=== PATIENT | female | born 1995 | race Caucasian/White ===

== ENCOUNTER 2017-06-14 05:11 | Emergency (ER) | payer OTHER ==
[~2017-06-14] VITALS: Ht 175.3 cm; Wt 95.3 kg
--- OUTSIDE RECORDS SUMMARY | 2017-06-14 05:20 | XMS REPORT | Clinical Summary ---
Author Author Admin, MAGNOE Organization [facility] Address Unknown Phone Unavailable Allergies, Adverse Reactions, Alerts Allergy Name Reaction Description Start Date Severity Status Provider No Known Allergies Anamaria Anderson LPN NKDA Critical Active Anamaria Anderson LPN Conditions or Problems Problem Name Problem Code Onset Date Status Entry Date Provider Comment Standard Description Annotate FH BREAST CANCER V16.3 Active Anamaria Anderson LPN Family history of malignant neoplasm of breast PHARYNGITIS, ACUTE, SEVERE 462 Resolved Christ PEDERSEN Acute pharyngitis UPPER RESPIRATORY INFECTION, ACUTE 465.9 Resolved Christ PEDERSEN Acute upper respiratory infections of unspecified site PHARYNGITIS 462 Resolved Christ PEDERSEN Acute pharyngitis CONJUNCTIVITIS 372.30 Resolved Christ PEDERSEN Conjunctivitis, unspecified Viral syndrome 079.99 Resolved Christ PEDERSEN Unspecified viral infection in conditions classified elsewhere and of unspecified site Hematuria 599.70 Resolved Christ PEDERSEN Hematuria, unspecified UTI 599.0 Resolved Christ PEDERSEN Urinary tract infection, site not specified Fever of unknown origin 780.60 Active Christ PEDERSEN Fever, unspecified Acute pharyngitis 462 Active Christ PEDERSEN Acute pharyngitis Upper respiratory infection 465.9 Active Sanket PEDERSEN Acute upper respiratory infections of unspecified site Allergic reaction 995.3 Active Christ PEDERSEN Allergy, unspecified, not elsewhere classified Dysuria 788.1 Active Christ PEDERSEN Dysuria Family history of renal disease V18.69 Active Christ PEDERSEN Family history of other kidney diseases Renal calculus, hx of V13.01 Active Christ PEDERSEN Personal history of urinary calculi Microscopic hematuria 599.72 Active Christ PEDERSEN Microscopic hematuria Hematuria 599.70 Active Charla Hammond MD Hematuria, unspecified Muscle spasm 728.85 Active Christ PEDERSEN Spasm of muscle Easy bruising 782.9 Active Christ PEDERSEN Other symptoms involving skin and integumentary tissues PHARYNGITIS, ACUTE, SEVERE ICD-462 Inactive Christ PEDERSEN UPPER RESPIRATORY INFECTION, ACUTE ICD-465.9 Inactive Christ PEDERSEN PHARYNGITIS ICD-462 Inactive Christ PEDERSEN CONJUNCTIVITIS ICD-372.30 Inactive Christ PEDERSEN Viral syndrome ICD-079.99 Inactive Christ PEDERSEN Hematuria ICD-599.70 Inactive Christ PEDERSEN 09/15 UTI ICD-599.0 Inactive Christ PEDERSEN Medication List Medication Instructions Start Date Stop Date Generic Name NDC Status Provider Patient Instruction CEPHALEXIN 500 MG CAPS 1 tablet by mouth four times daily CEPHALEXIN 67614637008 No Longer Active Christ Kye PEDERSEN Active CLARITIN 10 MG TAB 1 tablet by mouth daily as needed for allergies LORATADINE 82003913128 No Longer Active Christ Kye PEDERSEN Active HYDROCORTISONE 1 % CREA apply 3 to 4 times per day HYDROCORTISONE 35746796224 No Longer Active Christ Kye PEDERSEN Active AZITHROMYCIN 500 MG TABS 1 tablet PO daily x 6 days AZITHROMYCIN 60697857109 No Longer Active Christ Harms PA Active ZITHROMAX 250 MG TAB 2 po today, then 1 po q days 2-5 AZITHROMYCIN 29028991475 No Longer Active Christ Harms PA Active AMOXICILLIN 500 MG CAP 1 tab by mouth 3 times daily x 10 days AMOXICILLIN 19921166979 No Longer Active Christ Harms PA Active GENTAMICIN SULFATE 0.3 % SOLN 3 gtt OU tid x 7 d GENTAMICIN SULFATE 31443008218 No Longer Active Sanket PEDERSEN Active AMOXICILLIN 500 MG TABS 2 PO bid x 7 d AMOXICILLIN 23846275327 No Longer Active Sanket PEDERSEN Active CLARITIN 10 MG CAPS 1qd LORATADINE 76203414175 No Longer Active Sanket PEDERSEN Active ZITHROMAX 250 MG TAB 2 po today, then 1 po q days 2-5 AZITHROMYCIN 91313807785 No Longer Active Christ Harms PA Active AMOXICILLIN 500 MG CAP 1 tab by mouth 3 times daily x 10 days AMOXICILLIN 51286054699 No Longer Active Christ Harms PA Active AMOXICILLIN 500 MG CAP 1 tab by mouth 3 times daily x 10 days AMOXICILLIN 500 MG CAP 241838 AMOXICILLIN Inactive CLARITIN 10 MG CAPS 1qd CLARITIN 10 MG CAPS LORATADINE Inactive AMOXICILLIN 500 MG CAP 1 tab by mouth 3 times daily x 10 days AMOXICILLIN 500 MG CAP 159436 AMOXICILLIN Inactive AZITHROMYCIN 500 MG TABS 1 tablet PO daily x 6 days AZITHROMYCIN 500 MG TABS 8563530 AZITHROMYCIN Inactive HYDROCORTISONE 1 % CREA apply 3 to 4 times per day HYDROCORTISONE 1 % CREA 315153 HYDROCORTISONE Inactive CLARITIN 10 MG TAB 1 tablet by mouth daily as needed for allergies CLARITIN 10 MG TAB 272576 LORATADINE Inactive CEPHALEXIN 500 MG CAPS 1 tablet by mouth four times daily CEPHALEXIN 500 MG CAPS 258010 CEPHALEXIN Inactive ZITHROMAX 250 MG TAB 2 po today, then 1 po q days 2-5 ZITHROMAX 250 MG TAB 8936788 AZITHROMYCIN Inactive AMOXICILLIN 500 MG TABS 2 PO bid x 7 d AMOXICILLIN 500 MG TABS 220846 AMOXICILLIN Inactive GENTAMICIN SULFATE 0.3 % SOLN 3 gtt OU tid x 7 d GENTAMICIN SULFATE 0.3 % SOLN 148390 GENTAMICIN SULFATE Inactive ZITHROMAX 250 MG TAB 2 po today, then 1 po q days 2-5 ZITHROMAX 250 MG TAB 0790626 AZITHROMYCIN Inactive Vital Signs Date Name Value Unit Range Description blood pressure, diastolic - 8462-4 69 mm[Hg] BP buchanan blood pressure, systolic - 8480-6 98 mm[Hg] BP sys pulse rate E&M - 8867-4 72 /min Heart rate temperature E&M 97.3 [degF] Body temperature weight E&M - 3141-9 171 [lb_av] Weight Measured blood pressure, diastolic - 8462-4 60 mm[Hg] BP buchanan blood pressure, systolic - 8480-6 100 mm[Hg] BP sys height E&M - 8302-2 67.5 [in_us] Bdy height pulse rate E&M - 8867-4 72 /min Heart rate temperature E&M 98.1 [degF] Body temperature weight E&M - 3141-9 168 [lb_av] Weight Measured blood pressure, diastolic - 8462-4 64 mm[Hg] BP buchanan blood pressure, systolic - 8480-6 105 mm[Hg] BP sys pulse rate E&M - 8867-4 71 /min Heart rate temperature E&M 96.6 [degF] Body temperature weight E&M - 3141-9 171 [lb_av] Weight Measured blood pressure, diastolic - 8462-4 60 mm[Hg] BP buchanan blood pressure, systolic - 8480-6 98 mm[Hg] BP sys height E&M - 8302-2 67 [in_us] Bdy height pulse rate E&M - 8867-4 88 /min Heart rate temperature E&M 98.2 [degF] Body temperature weight E&M - 3141-9 172 [lb_av] Weight Measured blood pressure, diastolic - 8462-4 74 mm[Hg] BP buchanan blood pressure, systolic - 8480-6 100 mm[Hg] BP sys height E&M - 8302-2 67.25 [in_us] Bdy height pulse rate E&M - 8867-4 64 /min Heart rate temperature E&M 98 [degF] Body temperature weight E&M - 3141-9 171 [lb_av] Weight Measured blood pressure, diastolic - 8462-4 64 mm[Hg] BP buchanan blood pressure, systolic - 8480-6 104 mm[Hg] BP sys height E&M - 8302-2 67.5 [in_us] Bdy height pulse rate E&M - 8867-4 76 /min Heart rate temperature E&M 99.9 [degF] Body temperature weight E&M - 3141-9 171 [lb_av] Weight Measured Diagnostic Results Date Name Value Unit Range Description Lab Report: CBC W/DIFF - Hematology leukocyte count, blood 6.7 10^3/MM^3 10*3/mm3 4.6-10.2 neutrophils as percent of blood leukocytes 48.0 % 42.2-75.2 monocytes as percent of blood leukocytes 8.7 % 1.7-9.3 lymphocytes as percent of blood leukocytes 40.1 % 20.5-51.1 erythrocyte (RBC) count 4.30 10^6/MM^3 10*6/mm3 4.04-5.48 hemoglobin, blood 12.9 g/dL 12.0-16.0 hematocrit, blood 38.3 % 36.0-46.0 mean corpuscular volume, RBC 89 fL 80-97 mean corpuscular hemoglobin, RBC 30.1 pg 27.0-31.2 mean corpuscular hemoglobin concentration, RBC 33.8 G/DL % 31.8- 35.4 red blood cell distribution width 13.6 % 11.6-14.8 platelet count 193 10^3/MM^3 10*3/mm3 142-424 Lab Report: CBC W/DIFF, Rapid Strep - Hematology leukocyte count, blood 10.4 10^3/MM^3 10*3/mm3 4.6-10.2 neutrophils as percent of blood leukocytes 63.9 % 42.2-75.2 monocytes as percent of blood leukocytes 6.8 % 1.7-9.3 lymphocytes as percent of blood leukocytes 24.7 % 20.5-51.1 erythrocyte (RBC) count 4.51 10^6/MM^3 10*6/mm3 4.04-5.48 hemoglobin, blood 13.8 g/dL 12.0-16.0 hematocrit, blood 40.2 % 36.0-46.0 mean corpuscular volume, RBC 89 fL 80-97 mean corpuscular hemoglobin, RBC 30.6 pg 27.0-31.2 mean corpuscular hemoglobin concentration, RBC 34.3 G/DL % 31.8- 35.4 red blood cell distribution width 13.7 % 11.6-14.8 platelet count 234 10^3/MM^3 10*3/mm3 142-424 Lab Report: CBC W/DIFF, Rapid Strep - Lab Microbial identification kit, rapid strep method Negative Negative Lab Report: UADIP W/MICRO, AUTO - Chemistry protein, total urine random Trace mg/dL Negative RBC, urine, dipstick 3+ Negative Lab Report: UADIP W/MICRO, AUTO - Urinalysis urobilinogen, urine, semiquantitative (dipstick) Normal Normal leukocyte esterase, urine, by dipstick Negative Negative nitrite, urine, semiquantitative Negative Negative glucose, urine, semiquantitative Negative Negative ketones, urine, by test strip Trace Negative bilirubin, urine 1+ Negative urine color Dark Yellow Colorless;Lightyellow;Straw;Yellow appearance, urine SL. Hazy Clear specific gravity, urine 1.030 1.000-1.030 pH, urine, semiquantitative 7.0 5.0-8.5 Office Visit: CN hematuria - Chemistry RBC, urine, dipstick negative protein, total urine random negative mg/dL Office Visit: CN hematuria - Urinalysis urinalysis, routine Clean Catch ketones, urine, by test strip negative bilirubin, urine negative glucose, urine, semiquantitative negative pH, urine, semiquantitative 6 specific gravity, urine 1.010 urine color yellow appearance, urine clear leukocyte esterase, urine, by dipstick negative nitrite, urine, semiquantitative negative urobilinogen, urine, semiquantitative (dipstick) 0.2 protein, urine, semiquantitative (dipstick) negative Encounters Code Encounter Date Provider Facility CPT-76979 Level 3 Est. Patient 07:02:29 CDT Christ PEDERSEN [facility] CPT-70022 Level 4 Est. Patient 07:58:02 CDT Christ PEDERSEN [facility] CPT-50729 Level 3 New Patient 16:50:18 CDT Charla Hammond MD [facility] CPT-47264 Level 3 Est. Patient 07:06:47 CDT Christ PEDERSEN [facility] CPT-06009 Level 3 Est. Patient 13:03:14 CDT Christ Fishman [facility] [place] CPT-93296 Level 3 Est. Patient 09:44:05 CDT Sanket Angel [facility] CPT-43546 Level 3 New Patient 14:13:26 CDT Christ Fishman [facility] CPT-77329 Level 3 New Patient 08:42:00 CDT Christ PEDERSEN [facility] [place] CPT-06709 Level 3 Est. Patient 06:15:09 CASH CONTROL SPECIALIST Christ Fishman [facility] CPT-51498 Level 3 Est. Patient 14:32:02 CDT Christ PEDERSEN [facility] CPT-96856 Level 3 Est. Patient 13:55:47 CDT Sanket Angel [facility] CPT-68826 Level 3 Est. Patient 07:36:37 CASH CONTROL SPECIALIST Christ Fishman [facility] CPT-41028 Level 3 Est. Patient 10:35:07 CDT Christ Fishman [facility] Procedures Code Procedure Name Date Entry Date Standard Description CPT-34948 Venipuncture Draw Fee 08:59:46 CDT CPT-80485 Venipuncture Draw Fee 16:02:00 CDT CPT-55033 Urine Dip (Floor Use Only) 16:50:18 CDT CPT-77942 Abd single AP View 09:49:22 CDT CPT-98344 Venipuncture Draw Fee 14:15:28 CDT CPT-42867 Rapid Strep -(Floor Use Only) 10:04:18 CDT CPT-72845 Venipuncture Draw Fee 10:04:18 CDT CPT-36752 Venipuncture Draw Fee 09:53:28 CASH CONTROL SPECIALIST CPT-10404 Rapid Strep -(Floor Use Only) 14:32:02 CDT CPT-21611 Influenza (Floor Use Only) 15:34:29 CASH CONTROL SPECIALIST CPT-21653 Rapid Strep -(Floor Use Only) 10:48:21 CDT CPT-85658 Venipuncture Draw Fee 10:48:21 CDT
--- OUTSIDE RECORDS SUMMARY | 2017-06-14 05:20 | XMS REPORT | Clinical Summary ---
Author Author Admin, E Organization [facility] Address Unknown Phone Unavailable Allergies, Adverse Reactions, Alerts Allergy Name Reaction Description Start Date Severity Status Provider No Known Allergies Anamaria Anderson LPN NKDA Critical Active Anamaria Andref [employer] ATTENDANT Conditions or Problems Problem Name Problem Code Onset Date Status Entry Date Provider Comment Standard Description Annotate FH BREAST CANCER V16.3 Active Anamaria Anderson LPN Family history of malignant neoplasm of breast PHARYNGITIS, ACUTE, SEVERE 462 Resolved Christ PEDERSEN Acute pharyngitis UPPER RESPIRATORY INFECTION, ACUTE 465.9 Resolved Christ Fishman PA Acute upper respiratory infections of unspecified site PHARYNGITIS 462 Resolved Christ PEDERSEN Acute pharyngitis CONJUNCTIVITIS 372.30 Resolved Christ Fishman PA Conjunctivitis, unspecified Viral syndrome 079.99 Resolved Christ Fishman PA Unspecified viral infection Hematuria 599.70 Resolved Christ PEDERSEN Hematuria, unspecified UTI 599.0 Resolved Christ PEDERSEN Urinary tract infection, site not specified Fever of unknown origin 780.60 Resolved Samantha Yokum KOSHER INSPECTOR Fever, unspecified Acute pharyngitis 462 Resolved Samantha Yokum KOSHER INSPECTOR Acute pharyngitis Upper respiratory infection 465.9 Resolved Samantha Yokum KOSHER INSPECTOR Acute upper respiratory infections of unspecified site Allergic reaction 995.3 Resolved Samantha Yokum KOSHER INSPECTOR Allergy, unspecified, not elsewhere classified Dysuria 788.1 Resolved Samantha Yokum KOSHER INSPECTOR Dysuria Family history of renal disease V18.69 Active Christ PEDERSEN Family history of other kidney diseases Renal calculus, hx of V13.01 Active Christ PEDERSEN Personal history of urinary calculi Microscopic hematuria 599.72 Resolved Samantha Yokum KOSHER INSPECTOR Microscopic hematuria Hematuria 599.70 Resolved Samantha Yokum KOSHER INSPECTOR Hematuria, unspecified Muscle spasm 728.85 Resolved Samantha Yokum KOSHER INSPECTOR Spasm of muscle Easy bruising 782.9 Resolved Samantha Yokum KOSHER INSPECTOR Other symptoms involving skin and integumentary tissues Athletic physical, normal V70.3 Active Samantha Yokum KOSHER INSPECTOR Other general medical examination for administrative purposes Back spasm 724.8 Active Christ PEDERSEN Other symptoms referable to back Easy bruising 782.9 Active Christ PEDERSEN Other symptoms involving skin and integumentary tissues Otitis externa, acute, right 380.12 Active Jenae Arce KOSHER INSPECTOR Acute swimmers' ear PHARYNGITIS, ACUTE, SEVERE ICD-462 Inactive Christ PEDERSEN UPPER RESPIRATORY INFECTION, ACUTE ICD-465.9 Inactive Christ PEDERSEN PHARYNGITIS ICD-462 Inactive Christ PEDERSEN CONJUNCTIVITIS ICD-372.30 Inactive Christ Fishman PA Viral syndrome ICD-079.99 Inactive Christ Fishman PA Hematuria ICD-599.70 Inactive Christ Fishman PA 09/15 UTI ICD-599.0 Inactive Christ Harms PA Fever of unknown origin ICD-780.60 Inactive Samantha Yokum KOSHER INSPECTOR Acute pharyngitis ICD-462 Inactive Samantha Yokum KOSHER INSPECTOR Upper respiratory infection ICD-465.9 Inactive Samantha Yokum KOSHER INSPECTOR Allergic reaction ICD-995.3 Inactive Samantha Yokum KOSHER INSPECTOR Dysuria ICD-788.1 Inactive Samantha Yokum KOSHER INSPECTOR 02/08 Microscopic hematuria ICD-599.72 Inactive Samantha Yokum KOSHER INSPECTOR Hematuria ICD-599.70 Inactive Samantha Yokum KOSHER INSPECTOR Muscle spasm ICD-728.85 Inactive Samantha Yokum KOSHER INSPECTOR Easy bruising ICD-782.9 Inactive Samantha Yokum KOSHER INSPECTOR Medication List Medication Instructions Start Date Stop Date Generic Name NDC Status Provider Patient Instruction CORTISPORIN 3.5-17430-2 SOLN 4gtts in affected ear QID x 7 days [id number] Active Jillina Frazell KOSHER INSPECTOR Active CEPHALEXIN 500 MG CAPS 1 tablet by mouth four times daily CEPHALEXIN 26823609563 No Longer Active Christ Harms PA Active CLARITIN 10 MG TAB 1 tablet by mouth daily as needed for allergies LORATADINE 61531944740 No Longer Active Christ Harms PA Active HYDROCORTISONE 1 % CREA apply 3 to 4 times per day HYDROCORTISONE 71458165362 No Longer Active Christ Harms PA Active AZITHROMYCIN 500 MG TABS 1 tablet PO daily x 6 days AZITHROMYCIN 19018230612 No Longer Active Christ Harms PA Active ZITHROMAX 250 MG TAB 2 po today, then 1 po q days 2-5 AZITHROMYCIN 76971785857 No Longer Active Christ Harms PA Active AMOXICILLIN 500 MG CAP 1 tab by mouth 3 times daily x 10 days AMOXICILLIN 50819259240 No Longer Active Christ Kye PA Active GENTAMICIN SULFATE 0.3 % SOLN 3 gtt OU tid x 7 d GENTAMICIN SULFATE 19760251348 No Longer Active Sanket PEDERSEN Active AMOXICILLIN 500 MG TABS 2 PO bid x 7 d AMOXICILLIN 07479225145 No Longer Active Sanket PEDERSEN Active CLARITIN 10 MG CAPS 1qd LORATADINE 20699366889 No Longer Active Sanket PEDERSEN Active ZITHROMAX 250 MG TAB 2 po today, then 1 po q days 2-5 AZITHROMYCIN 77666737872 No Longer Active Christ Harms PA Active AMOXICILLIN 500 MG CAP 1 tab by mouth 3 times daily x 10 days AMOXICILLIN 80851222161 No Longer Active Christ Harms PA Active AMOXICILLIN 500 MG CAP 1 tab by mouth 3 times daily x 10 days AMOXICILLIN 500 MG CAP 508622 AMOXICILLIN Inactive CLARITIN 10 MG CAPS 1qd CLARITIN 10 MG CAPS 057950 LORATADINE Inactive AMOXICILLIN 500 MG CAP 1 tab by mouth 3 times daily x 10 days AMOXICILLIN 500 MG CAP 453682 AMOXICILLIN Inactive AZITHROMYCIN 500 MG TABS 1 tablet PO daily x 6 days AZITHROMYCIN 500 MG TABS 7724153 AZITHROMYCIN Inactive HYDROCORTISONE 1 % CREA apply 3 to 4 times per day HYDROCORTISONE 1 % CREA 432417 HYDROCORTISONE Inactive CLARITIN 10 MG TAB 1 tablet by mouth daily as needed for allergies CLARITIN 10 MG TAB 800958 LORATADINE Inactive CEPHALEXIN 500 MG CAPS 1 tablet by mouth four times daily CEPHALEXIN 500 MG CAPS 387281 CEPHALEXIN Inactive ZITHROMAX 250 MG TAB 2 po today, then 1 po q days 2-5 ZITHROMAX 250 MG TAB 1604825 AZITHROMYCIN Inactive AMOXICILLIN 500 MG TABS 2 PO bid x 7 d AMOXICILLIN 500 MG TABS 126548 AMOXICILLIN Inactive GENTAMICIN SULFATE 0.3 % SOLN 3 gtt OU tid x 7 d GENTAMICIN SULFATE 0.3 % SOLN 323451 GENTAMICIN SULFATE Inactive ZITHROMAX 250 MG TAB 2 po today, then 1 po q days 2-5 ZITHROMAX 250 MG TAB 0071765 AZITHROMYCIN Inactive Vital Signs Date Name Value Unit Range Description blood pressure, diastolic - 8462-4 75 mm[Hg] BP buchanan blood pressure, systolic - 8480-6 127 mm[Hg] BP sys pulse rate E&M - 8867-4 75 /min Heart rate temperature E&M 98.7 [degF] Body temperature weight E&M - 3141-9 190 [lb_av] Weight Measured Encounters Code Encounter Date Provider Facility CPT-78292 Level 3 Est. Patient 14:20:20 CDT Jenae Arce [facility] CPT-22829 Level 4 Est. Patient 07:31:22 CDT Christ PEDERSEN [facility] CPT-10972 Level 3 Est. Patient 15:20:00 CDT Samantha Mccarthy [facility] CPT-97887 Level 3 Est. Patient 07:02:29 CDT Christ PEDERSEN [facility] CPT-08420 Level 4 Est. Patient 07:58:02 CDT Christ PEDERSEN [facility] CPT-99424 Level 3 New Patient 16:50:18 CDT Charla Hammond MD [facility] CPT-38939 Level 3 Est. Patient 07:06:47 CDT Christ PEDERSEN [facility] CPT-60633 Level 3 Est. Patient 13:03:14 CDT Christ PEDERSEN [facility] CPT-85259 Level 3 Est. Patient 09:44:05 CDT Sanket Angel [facility] CPT-85904 Level 3 New Patient 14:13:26 CDT Christ PEDERSEN [facility] CPT-08889 Level 3 New Patient 08:42:00 CDT Christ PEDERSEN [facility] CPT-92095 Level 3 Est. Patient 06:15:09 PARTS COUNTER ASSOCIATE Christ PEDERSEN [facility] named [facility] CPT-16741 Level 3 Est. Patient 14:32:02 CDT Christ PEDERSEN [facility] CPT-19908 Level 3 Est. Patient 13:55:47 CDT Sanket Angel [facility] CPT-71142 Level 3 Est. Patient 07:36:37 PARTS COUNTER ASSOCIATE Christ Fishman [facility] CPT-61614 Level 3 Est. Patient 10:35:07 CDT Christ PEDERSEN [facility] Procedures Code Procedure Name Date Entry Date Standard Description CPT-51490 Venipuncture Draw Fee 16:34:16 CDT CPT-33030 Venipuncture Draw Fee 08:59:46 CDT CPT-10067 Venipuncture Draw Fee 16:02:00 CDT CPT-54030 Urine Dip (Floor Use Only) 16:50:18 CDT CPT-58795 Abd single AP View 09:49:22 CDT CPT-54745 Venipuncture Draw Fee 14:15:28 CDT CPT-34568 Rapid Strep -(Floor Use Only) 10:04:18 CDT CPT-00703 Venipuncture Draw Fee 10:04:18 CDT CPT-40728 Venipuncture Draw Fee 09:53:28 PARTS COUNTER ASSOCIATE CPT-09787 Rapid Strep -(Floor Use Only) 14:32:02 CDT CPT-75875 Influenza (Floor Use Only) 15:34:29 PARTS COUNTER ASSOCIATE CPT-43977 Rapid Strep -(Floor Use Only) 10:48:21 CDT CPT-67844 Venipuncture Draw Fee 10:48:21 CDT
--- OUTSIDE RECORDS SUMMARY | 2017-06-14 05:21 | XMS REPORT | Clinical Summary ---
Author Author Admin, LUISITO Organization [facility] Address Unknown Phone Unavailable Allergies, Adverse Reactions, Alerts Allergy Name Reaction Description Start Date Severity Status Provider No Known Allergies Anamaria Anderson LPN NKDA Critical Active Anamaria Anderson COMPUTER EQUIPMENT REPAIRER Conditions or Problems Problem Name Problem Code Onset Date Status Entry Date Provider Comment Standard Description Annotate FH BREAST CANCER V16.3 Active Anamaria Anderson LPN Family history of malignant neoplasm of breast PHARYNGITIS, ACUTE, SEVERE 462 Resolved Christ PEDERSEN Acute pharyngitis UPPER RESPIRATORY INFECTION, ACUTE 465.9 Resolved Christ Fishman PA Acute upper respiratory infections of unspecified site PHARYNGITIS 462 Resolved Christ Fishman PA Acute pharyngitis CONJUNCTIVITIS 372.30 Resolved Christ Fishman PA Conjunctivitis, unspecified Viral syndrome 079.99 Resolved Christ Fishman PA Unspecified viral infection Hematuria 599.70 Resolved Christ Fishman PA Hematuria, unspecified UTI 599.0 Resolved Christ PEDERSEN Urinary tract infection, site not specified Fever of unknown origin 780.60 Resolved Samantha Yokum MIGRATORY GAME BIRD BIOLOGIST Fever, unspecified Acute pharyngitis 462 Resolved Samantha Yokum MIGRATORY GAME BIRD BIOLOGIST Acute pharyngitis Upper respiratory infection 465.9 Resolved Samantha Yokum MIGRATORY GAME BIRD BIOLOGIST Acute upper respiratory infections of unspecified site Allergic reaction 995.3 Resolved Samantha Yokum MIGRATORY GAME BIRD BIOLOGIST Allergy, unspecified, not elsewhere classified Dysuria 788.1 Resolved Samantha Yokum MIGRATORY GAME BIRD BIOLOGIST Dysuria Family history of renal disease V18.69 Active Christ PEDERSEN Family history of other kidney diseases Renal calculus, hx of V13.01 Resolved Jennifer Mendez APRN Personal history of urinary calculi Microscopic hematuria 599.72 Resolved Samantha Yokum MIGRATORY GAME BIRD BIOLOGIST Microscopic hematuria Hematuria 599.70 Resolved Samantha Yokum MIGRATORY GAME BIRD BIOLOGIST Hematuria, unspecified Muscle spasm 728.85 Resolved Samantha Yokum MIGRATORY GAME BIRD BIOLOGIST Spasm of muscle Easy bruising 782.9 Resolved Samantha Yokum MIGRATORY GAME BIRD BIOLOGIST Other symptoms involving skin and integumentary tissues Athletic physical, normal V70.3 Active Samantha Fabio ARTN Other general medical examination for administrative purposes Back spasm 724.8 Active Christ PEDERSEN Other symptoms referable to back Easy bruising 782.9 Active Christ PEDERSEN Other symptoms involving skin and integumentary tissues Otitis externa, acute, right 380.12 Active Jenae Arce MIGRATORY GAME BIRD BIOLOGIST Acute swimmers' ear Depression with anxiety 300.4 Active Jennifer Mendez APRN Dysthymic disorder Urinary hesitancy 788.64 Active Jennifer Mendez APRN Urinary hesitancy Personal history of urinary calculi V13.01 Active Jennifer Mendez APRN Personal history of urinary calculi Flank pain, left 789.09 Active Jennifer Mendez APRN Abdominal pain, other specified site; multiple sites PHARYNGITIS, ACUTE, SEVERE ICD-462 Inactive Christ PEDERSEN UPPER RESPIRATORY INFECTION, ACUTE ICD-465.9 Inactive Christ Harms PA PHARYNGITIS ICD-462 Inactive Christ Harms PA CONJUNCTIVITIS ICD-372.30 Inactive Christ Harms PA Viral syndrome ICD-079.99 Inactive Christ Harms PA Hematuria ICD-599.70 Inactive Christ Harms PA 09/15 UTI ICD-599.0 Inactive Christ Harms PA Fever of unknown origin ICD-780.60 Inactive Samantha Yokum MIGRATORY GAME BIRD BIOLOGIST Acute pharyngitis ICD-462 Inactive Samantha Yokum MIGRATORY GAME BIRD BIOLOGIST Upper respiratory infection ICD-465.9 Inactive Samantha Yokum MIGRATORY GAME BIRD BIOLOGIST Allergic reaction ICD-995.3 Inactive Samantha Yokum MIGRATORY GAME BIRD BIOLOGIST Dysuria ICD-788.1 Inactive Samantha Yokum MIGRATORY GAME BIRD BIOLOGIST 02/08 Renal calculus, hx of ICD-V13.01 Inactive Jennifer Mendez MIGRATORY GAME BIRD BIOLOGIST Microscopic hematuria ICD-599.72 Inactive Samantha Yokum MIGRATORY GAME BIRD BIOLOGIST Hematuria ICD-599.70 Inactive Samantha Yokum MIGRATORY GAME BIRD BIOLOGIST Muscle spasm ICD-728.85 Inactive Samantha Yokum MIGRATORY GAME BIRD BIOLOGIST Easy bruising ICD-782.9 Inactive Samantha Yokum MIGRATORY GAME BIRD BIOLOGIST Medication List Medication Instructions Start Date Stop Date Generic Name NDC Status Provider Patient Instruction BACTRIM DS 800-160 MG TABS 1 twice a day SULFAMETHOXAZOLE- TRIMETHOPRIM 79283484417 Active Soo Madl COMPUTER EQUIPMENT REPAIRER Active PAXIL 20 MG ORAL TABS 1 tab daily PAROXETINE HCL 26837093333 Active Soo Martell COMPUTER EQUIPMENT REPAIRER Active CORTISPORIN 3.5-38015-2 SOLN 4gtts in affected ear QID x 7 days [id number] 24764678058 No Longer Active Soo Madl COMPUTER EQUIPMENT REPAIRER Active CEPHALEXIN 500 MG CAPS 1 tablet by mouth four times daily CEPHALEXIN 79558701228 No Longer Active Christ Harms PA Active CLARITIN 10 MG TAB 1 tablet by mouth daily as needed for allergies LORATADINE 21091092444 No Longer Active Christ Harms PA Active HYDROCORTISONE 1 % CREA apply 3 to 4 times per day HYDROCORTISONE 66905002008 No Longer Active Christ Harms PA Active AZITHROMYCIN 500 MG TABS 1 tablet PO daily x 6 days AZITHROMYCIN 88069111409 No Longer Active Christ Harms PA Active ZITHROMAX 250 MG TAB 2 po today, then 1 po q days 2-5 AZITHROMYCIN 92265298654 No Longer Active Christ Harms PA Active AMOXICILLIN 500 MG CAP 1 tab by mouth 3 times daily x 10 days AMOXICILLIN 87100785464 No Longer Active Christ Harms PA Active GENTAMICIN SULFATE 0.3 % SOLN 3 gtt OU tid x 7 d GENTAMICIN SULFATE 85933949675 No Longer Active Sanket PEDERSEN Active AMOXICILLIN 500 MG TABS 2 PO bid x 7 d AMOXICILLIN 68205487993 No Longer Active Sanket PEDERSEN Active CLARITIN 10 MG CAPS 1qd LORATADINE 51305608772 No Longer Active Sanket Angel PA Active ZITHROMAX 250 MG TAB 2 po today, then 1 po q days 2-5 AZITHROMYCIN 29164500456 No Longer Active Christ Harms PA Active AMOXICILLIN 500 MG CAP 1 tab by mouth 3 times daily x 10 days AMOXICILLIN 79445025069 No Longer Active Christ Harms PA Active AMOXICILLIN 500 MG CAP 1 tab by mouth 3 times daily x 10 days AMOXICILLIN 500 MG CAP 732978 AMOXICILLIN Inactive CLARITIN 10 MG CAPS 1qd CLARITIN 10 MG CAPS 158703 LORATADINE Inactive AMOXICILLIN 500 MG CAP 1 tab by mouth 3 times daily x 10 days AMOXICILLIN 500 MG CAP 097375 AMOXICILLIN Inactive AZITHROMYCIN 500 MG TABS 1 tablet PO daily x 6 days AZITHROMYCIN 500 MG TABS 2372509 AZITHROMYCIN Inactive HYDROCORTISONE 1 % CREA apply 3 to 4 times per day HYDROCORTISONE 1 % CREA 355612 HYDROCORTISONE Inactive CLARITIN 10 MG TAB 1 tablet by mouth daily as needed for allergies CLARITIN 10 MG TAB 255161 LORATADINE Inactive CEPHALEXIN 500 MG CAPS 1 tablet by mouth four times daily CEPHALEXIN 500 MG CAPS 318895 CEPHALEXIN Inactive CORTISPORIN 3.5-74330-0 SOLN 4gtts in affected ear QID x 7 days CORTISPORIN 3.5-77509-9 SOLN 854772 [id number] Inactive ZITHROMAX 250 MG TAB 2 po today, then 1 po q days 2-5 ZITHROMAX 250 MG TAB 1265716 AZITHROMYCIN Inactive AMOXICILLIN 500 MG TABS 2 PO bid x 7 d AMOXICILLIN 500 MG TABS 799900 AMOXICILLIN Inactive GENTAMICIN SULFATE 0.3 % SOLN 3 gtt OU tid x 7 d GENTAMICIN SULFATE 0.3 % SOLN 149117 GENTAMICIN SULFATE Inactive ZITHROMAX 250 MG TAB 2 po today, then 1 po q days 2-5 ZITHROMAX 250 MG TAB 3319029 AZITHROMYCIN Inactive Vital Signs Date Name Value Unit Range Description blood pressure, diastolic 68 mm[Hg] BP buchanan blood pressure, systolic 119 mm[Hg] BP sys height E&M 67.25 [in_us] Bdy height pulse rate E&M 76 /min Heart rate temperature E&M 97.5 [degF] Body temperature weight E&M 219 [lb_av] Weight Measured blood pressure, diastolic 83 mm[Hg] BP buchanan blood pressure, systolic 127 mm[Hg] BP sys height E&M 67.25 [in_us] Bdy height pulse rate E&M 96 /min Heart rate temperature E&M 98.4 [degF] Body temperature weight E&M 222.0 [lb_av] Weight Measured Encounters Code Encounter Date Provider Facility CPT-32809 Level 3 Est. Patient 10:58:20 CDT Jennifer Mendez [facility] CPT-44478 Level 3 Est. Patient 15:12:20 CDT Jennifer Mendez [facility] CPT-03105 Level 3 Est. Patient 14:20:20 CDT Jenae Arce [facility] CPT-98323 Level 4 Est. Patient 07:31:22 CDT Christ PEDERSEN [facility] CPT-47118 Level 3 Est. Patient 15:20:00 CDT Samantha Mccarthy [facility] CPT-50383 Level 3 Est. Patient 07:02:29 CDT Christ PEDERSEN [facility] CPT-22808 Level 4 Est. Patient 07:58:02 CDT Christ PEDERSEN [facility] CPT-81875 Level 3 New Patient 16:50:18 CDT Charla Hammond MD [facility] CPT-30053 Level 3 Est. Patient 07:06:47 CDT Christ PEDERSEN [facility] CPT-48560 Level 3 Est. Patient 13:03:14 CDT Christ PEDERSEN [facility] CPT-42949 Level 3 Est. Patient 09:44:05 CDT Sanket Angel [facility] CPT-59374 Level 3 New Patient 14:13:26 CDT Christ Fishman [facility] CPT-19931 Level 3 New Patient 08:42:00 CDT Christ Kye [place] [facility] [place] CPT-26407 Level 3 Est. Patient 06:15:09 WARP SPINNER Christ Fishman [facility] [place] CPT-27072 Level 3 Est. Patient 14:32:02 CDT Christ Fishman [facility] CPT-81971 Level 3 Est. Patient 13:55:47 CDT Sanket Angel [facility] CPT-25438 Level 3 Est. Patient 07:36:37 WARP SPINNER Christ Kye [facility] CPT-43716 Level 3 Est. Patient 10:35:07 CDT Christ Fishman [facility] Procedures Code Procedure Name Date Entry Date Standard Description CPT-26440 Abd compl w upright - XRAY USE ONLY 11:08:53 CDT 01/11 CPT-11617 Venipuncture Draw Fee 16:34:16 CDT CPT-07506 Venipuncture Draw Fee 08:59:46 CDT CPT-20707 Venipuncture Draw Fee 16:02:00 CDT CPT-79189 Urine Dip (Floor Use Only) 16:50:18 CDT CPT-90837 Abd single AP View 09:49:22 CDT CPT-24307 Venipuncture Draw Fee 14:15:28 CDT CPT-84076 Rapid Strep -(Floor Use Only) 10:04:18 CDT CPT-66188 Venipuncture Draw Fee 10:04:18 CDT CPT-94469 Venipuncture Draw Fee 09:53:28 WARP SPINNER CPT-32315 Rapid Strep -(Floor Use Only) 14:32:02 CDT CPT-98369 Influenza (Floor Use Only) 15:34:29 WARP SPINNER CPT-08491 Rapid Strep -(Floor Use Only) 10:48:21 CDT CPT-91578 Venipuncture Draw Fee 10:48:21 CDT
--- OUTSIDE RECORDS SUMMARY | 2017-06-14 05:21 | XMS REPORT | Clinical Summary ---
Author Author Admin, LUISITO Organization [facility] Address Unknown Phone Unavailable Allergies, Adverse [...] Resolved Christ Fishman PA Unspecified viral infection in conditions classified elsewhere and of unspecified site Hematuria 599.70 Resolved Christ PEDERSEN Hematuria, unspecified UTI 599.0 Resolved Christ PEDERSEN Urinary tract infection, site not specified Fever of unknown origin 780.60 Resolved Samantha Yokum PLATER HELPER Fever, unspecified Acute pharyngitis 462 Resolved Samantha Yokum PLATER HELPER Acute pharyngitis Upper respiratory infection 465.9 Resolved Samantha Yokum PLATER HELPER Acute upper respiratory infections of unspecified site Allergic reaction 995.3 Resolved Samantha Yokum PLATER HELPER Allergy, unspecified, not elsewhere classified Dysuria 788.1 Resolved Samantha Yokum PLATER HELPER Dysuria Family history of renal disease V18.69 Active Christ PEDERSEN Family history of other kidney diseases Renal calculus, hx of V13.01 Active Christ PEDERSEN Personal history of urinary calculi Microscopic hematuria 599.72 Resolved Samantha Yokum PLATER HELPER Microscopic hematuria Hematuria 599.70 Resolved Samantha Yokum PLATER HELPER Hematuria, unspecified Muscle spasm 728.85 Resolved Samantha Yokum PLATER HELPER Spasm of muscle Easy bruising 782.9 Resolved Samantha Yokum PLATER HELPER Other symptoms involving skin and integumentary tissues Athletic physical, normal V70.3 Active Samantha Yokum PLATER HELPER Other general medical examination for administrative purposes PHARYNGITIS, ACUTE, SEVERE ICD-462 Inactive Christ PEDERSEN UPPER RESPIRATORY INFECTION, ACUTE ICD-465.9 Inactive Christ PEDERSEN PHARYNGITIS ICD-462 Inactive Christ PEDERSEN CONJUNCTIVITIS ICD-372.30 Inactive Christ PEDERSEN Viral syndrome ICD-079.99 Inactive Chirst PEDERSEN Hematuria ICD-599.70 Inactive Christ PEDERSEN 09/15 UTI ICD-599.0 Inactive Christ PEDERSEN Fever of unknown origin ICD-780.60 Inactive Samantha Yokum PLATER HELPER Acute pharyngitis ICD-462 Inactive Samantha Yokum PLATER HELPER Upper respiratory infection ICD-465.9 Inactive Samantha Mccarthy PLATER HELPER Allergic reaction ICD-995.3 Inactive Samantha Fabio PLATER HELPER Dysuria ICD-788.1 Inactive Samanthajennifer Mccarthy PLATER HELPER 02/08 Microscopic hematuria ICD-599.72 Inactive Samantha Fabio PLATER HELPER Hematuria ICD-599.70 Inactive Samanthajennifer Mccarthy PLATER HELPER Muscle spasm ICD-728.85 Inactive Samantha Mccarthy PLATER HELPER Easy bruising ICD-782.9 Inactive Samantha Mccarthy PLATER HELPER Medication List Medication Instructions Start Date Stop Date Generic Name NDC Status Provider Patient Instruction CEPHALEXIN 500 MG CAPS 1 tablet by mouth four times daily CEPHALEXIN 36320261618 No Longer Active Christ Harms PA Active CLARITIN 10 MG TAB 1 tablet by mouth daily as needed for allergies LORATADINE 52512994747 No Longer Active Christ Harms PA Active HYDROCORTISONE 1 % CREA apply 3 to 4 times per day HYDROCORTISONE 08008906256 No Longer Active Christ Harms PA Active AZITHROMYCIN 500 MG TABS 1 tablet PO daily x 6 days AZITHROMYCIN 46642144024 No Longer Active Christ Harms PA Active ZITHROMAX 250 MG TAB 2 po today, then 1 po q days 2-5 AZITHROMYCIN 94531139285 No Longer Active Christ Harms PA Active AMOXICILLIN 500 MG CAP 1 tab by mouth 3 times daily x 10 days AMOXICILLIN 12726583637 No Longer Active Christ Harms PA Active GENTAMICIN SULFATE 0.3 % SOLN 3 gtt OU tid x 7 d GENTAMICIN SULFATE 98592997740 No Longer Active Sanket W Cloven PA Active AMOXICILLIN 500 MG TABS 2 PO bid x 7 d AMOXICILLIN 42258988982 No Longer Active Sanket Angel PA Active CLARITIN 10 MG CAPS 1qd LORATADINE 39248030713 No Longer Active Sanket Angel PA Active ZITHROMAX 250 MG TAB 2 po today, then 1 po q days 2-5 AZITHROMYCIN 13902987946 No Longer Active Christ Harms PA Active AMOXICILLIN 500 MG CAP 1 tab by mouth 3 times daily x 10 days AMOXICILLIN 90439845980 No Longer Active Christ Harms PA Active AMOXICILLIN 500 MG CAP 1 tab by mouth 3 times daily x 10 days AMOXICILLIN 500 MG CAP 341265 AMOXICILLIN Inactive CLARITIN 10 MG CAPS 1qd CLARITIN 10 MG CAPS LORATADINE Inactive AMOXICILLIN 500 MG CAP 1 tab by mouth 3 times daily x 10 days AMOXICILLIN 500 MG CAP 938434 AMOXICILLIN Inactive AZITHROMYCIN 500 MG TABS 1 tablet PO daily x 6 days AZITHROMYCIN 500 MG TABS 3985074 AZITHROMYCIN Inactive HYDROCORTISONE 1 % CREA apply 3 to 4 times per day HYDROCORTISONE 1 % CREA 085565 HYDROCORTISONE Inactive CLARITIN 10 MG TAB 1 tablet by mouth daily as needed for allergies CLARITIN 10 MG TAB 046778 LORATADINE Inactive CEPHALEXIN 500 MG CAPS 1 tablet by mouth four times daily CEPHALEXIN 500 MG CAPS 214935 CEPHALEXIN Inactive ZITHROMAX 250 MG TAB 2 po today, then 1 po q days 2-5 ZITHROMAX 250 MG TAB 8178179 AZITHROMYCIN Inactive AMOXICILLIN 500 MG TABS 2 PO bid x 7 d AMOXICILLIN 500 MG TABS 288802 AMOXICILLIN Inactive GENTAMICIN SULFATE 0.3 % SOLN 3 gtt OU tid x 7 d GENTAMICIN SULFATE 0.3 % SOLN 801367 GENTAMICIN SULFATE Inactive ZITHROMAX 250 MG TAB 2 po today, then 1 po q days 2-5 ZITHROMAX 250 MG TAB 5975997 AZITHROMYCIN Inactive Vital Signs Date Name Value Unit Range Description blood pressure, diastolic - 8462-4 60 mm[Hg] BP buchanan blood pressure, systolic - 8480-6 98 mm[Hg] BP sys height E&M - 8302-2 67.25 [in_us] Bdy height pulse rate E&M - 8867-4 64 /min Heart rate temperature E&M 98.5 [degF] Body temperature weight E&M - 3141-9 180 [lb_av] Weight Measured blood pressure, diastolic - 8462-4 69 mm[Hg] [...] negative Encounters Code Encounter Date Provider Facility CPT-20472 Level 3 Est. Patient 15:20:00 CDT Samantha Mccarthy APRN [facility] CPT-49795 Level 3 Est. Patient 07:02:29 CDT Christ PEDERSEN [facility] CPT-72551 Level 4 Est. Patient 07:58:02 CDT Christ Harms [facility] CPT-42281 Level 3 New Patient 16:50:18 CDT Charla Hammond MD [facility] CPT-69181 Level 3 Est. Patient 07:06:47 CDT Christ PEDERSEN [facility] CPT-44004 Level 3 Est. Patient 13:03:14 CDT Christ PEDERSEN [facility] CPT-05455 Level 3 Est. Patient 09:44:05 CDT Sanket Angel [facility] CPT-83422 Level 3 New Patient 14:13:26 CDT Christ PEDERSEN [facility] CPT-71161 Level 3 New Patient 08:42:00 CDT Christ PEDERSEN [facility] CPT-32607 Level 3 Est. Patient 06:15:09 COUNSEL Christ PEDERSEN [facility] CPT-02298 Level 3 Est. Patient 14:32:02 CDT Christ PEDERSEN [facility] CPT-29294 Level 3 Est. Patient 13:55:47 CDT Sanket Angel [facility] CPT-49782 Level 3 Est. Patient 07:36:37 COUNSEL Christ PEDERSEN [facility] CPT-09441 Level 3 Est. Patient 10:35:07 CDT Christ PEDERSEN [facility] Procedures Code Procedure Name Date Entry Date Standard Description CPT-16855 Venipuncture Draw Fee 08:59:46 CDT CPT-13010 Venipuncture Draw Fee 16:02:00 CDT CPT-82722 Urine Dip (Floor Use Only) 16:50:18 CDT CPT-47541 Abd single AP View 09:49:22 CDT CPT-24967 Venipuncture Draw Fee 14:15:28 CDT CPT-79701 Rapid Strep -(Floor Use Only) 10:04:18 CDT CPT-66776 Venipuncture Draw Fee 10:04:18 CDT CPT-13866 Venipuncture Draw Fee 09:53:28 COUNSEL CPT-58067 Rapid Strep -(Floor Use Only) 14:32:02 CDT CPT-41273 Influenza (Floor Use Only) 15:34:29 COUNSEL CPT-45613 Rapid Strep -(Floor Use Only) 10:48:21 CDT CPT-81507 Venipuncture Draw Fee 10:48:21 CDT
--- OUTSIDE RECORDS SUMMARY | 2017-06-14 05:21 | XMS REPORT | Clinical Summary ---
Author Author Admin, E Organization [facility] Address Unknown Phone Unavailable Allergies, Adverse Reactions, Alerts Allergy Name Reaction Description Start Date Severity Status Provider No Known Allergies Anamaria Anderson LPN NKDA Critical Active Anamaria Andref BILLBOARD MECHANIC Conditions or Problems Problem Name Problem Code [...] of unknown origin 780.60 Resolved Samantha Yokum PLATING FOREMAN Fever, unspecified Acute pharyngitis 462 Resolved Samantha Yokum PLATING FOREMAN Acute pharyngitis Upper respiratory infection 465.9 Resolved Samantha Yokum PLATING FOREMAN Acute upper respiratory infections of unspecified site Allergic reaction 995.3 Resolved Samantha Yokum PLATING FOREMAN Allergy, unspecified, not elsewhere classified Dysuria 788.1 Resolved Samantha Yokum PLATING FOREMAN Dysuria Family history of renal disease V18.69 Active Christ PEDERSEN Family history of other kidney diseases Renal calculus, hx of V13.01 Active Christ PEDERSEN Personal history of urinary calculi Microscopic hematuria 599.72 Resolved Samantha Yokum [employer]ATING FOREM[employer] Microscopic hematuria Hematuria 599.70 Resolved Samantha Yokum PLATING FOREMAN Hematuria, unspecified Muscle spasm 728.85 Resolved Samantha Yokum PLATING FOREMAN Spasm of muscle Easy bruising 782.9 Resolved Samantha Yokum PLATING FOREMAN Other symptoms involving skin and integumentary tissues Athletic physical, normal V70.3 Active Samantha Teresaum PLATING FOREMAN Other general medical examination for administrative purposes Back spasm 724.8 Active Christ PEDERSEN Other symptoms referable to back Easy bruising 782.9 Active Christ PEDERSEN Other symptoms involving skin and integumentary tissues Otitis externa, acute, right 380.12 Active Jenae Arce PLATING FOREM[employer] Acute swimmers' ear Depression with anxiety 300.4 Active Jennifer Mendez PLATING FOREMAN Dysthymic disorder PHARYNGITIS, ACUTE, SEVERE ICD-462 Inactive Christ PEDERSEN UPPER RESPIRATORY INFECTION, ACUTE ICD-465.9 Inactive Christ PEDERSEN PHARYNGITIS ICD-462 Inactive Christ PEDERSEN CONJUNCTIVITIS ICD-372.30 Inactive Christ PEDERSEN Viral syndrome ICD-079.99 Inactive Christ PEDERSEN Hematuria ICD-599.70 Inactive Christ Kye PA 09/15 UTI ICD-599.0 Inactive Christ Kye PEDERSEN Fever of unknown origin ICD-780.60 Inactive Samantha Yokum PLATING FOREMAN Acute pharyngitis ICD-462 Inactive Samantha Yokum PLATING FOREMAN Upper respiratory infection ICD-465.9 Inactive Samantha Yokum PLATING FOREMAN Allergic reaction ICD-995.3 Inactive Samantha Yokum PLATING FOREMAN Dysuria ICD-788.1 Inactive Samanhta Yokum PLATING FOREMAN 02/08 Microscopic hematuria ICD-599.72 Inactive Samantha Yokum PLATING FOREMAN Hematuria ICD-599.70 Inactive Samantha Yokum PLATING FOREMAN Muscle spasm ICD-728.85 Inactive Samantha Yokum PLATING FOREMAN Easy bruising ICD-782.9 Inactive Samantha Yokum PLATING FOREMAN Medication List Medication Instructions Start Date Stop Date Generic Name NDC Status Provider Patient Instruction PAROXETINE HCL 10 MG TABS 1 daily for depression/anxiety PAROXETINE HCL 91977400320 Active Jennifer Mendez PLATING FOREMAN Active CORTISPORIN 3.5-14518-7 SOLN 4gtts in affected ear QID x 7 days [id number] 34801691741 No Longer Active Soo Muse BILLBOARD MECHANIC Active CEPHALEXIN 500 MG CAPS 1 tablet by mouth four times daily CEPHALEXIN 44103278007 No Longer Active Christ PEDERSEN Active CLARITIN 10 MG TAB 1 tablet by mouth daily as needed for allergies LORATADINE 54316104492 No Longer Active Christ Harms PA Active HYDROCORTISONE 1 % CREA apply 3 to 4 times per day HYDROCORTISONE 72748686074 No Longer Active Christ Harms PA Active AZITHROMYCIN 500 MG TABS 1 tablet PO daily x 6 days AZITHROMYCIN 36591331742 No Longer Active Christ Harms PA Active ZITHROMAX 250 MG TAB 2 po today, then 1 po q days 2-5 AZITHROMYCIN 17740689344 No Longer Active Christ Harms PA Active AMOXICILLIN 500 MG CAP 1 tab by mouth 3 times daily x 10 days AMOXICILLIN 72140193909 No Longer Active Christ Harms PA Active GENTAMICIN SULFATE 0.3 % SOLN 3 gtt OU tid x 7 d GENTAMICIN SULFATE 54005074755 No Longer Active Sanket PEDERSEN Active AMOXICILLIN 500 MG TABS 2 PO bid x 7 d AMOXICILLIN 96647655176 No Longer Active Sanket PEDERSEN Active CLARITIN 10 MG CAPS 1qd LORATADINE 46371881309 No Longer Active Sanket PEDERSEN Active ZITHROMAX 250 MG TAB 2 po today, then 1 po q days 2-5 AZITHROMYCIN 59442590133 No Longer Active Christ Harms PA Active AMOXICILLIN 500 MG CAP 1 tab by mouth 3 times daily x 10 days AMOXICILLIN 07439268949 No Longer Active Christ Harms PA Active AMOXICILLIN 500 MG CAP 1 tab by mouth 3 times daily x 10 days AMOXICILLIN 500 MG CAP 418410 AMOXICILLIN Inactive CLARITIN 10 MG CAPS 1qd CLARITIN 10 MG CAPS 139890 LORATADINE Inactive AMOXICILLIN 500 MG CAP 1 tab by mouth 3 times daily x 10 days AMOXICILLIN 500 MG CAP 088565 AMOXICILLIN Inactive AZITHROMYCIN 500 MG TABS 1 tablet PO daily x 6 days AZITHROMYCIN 500 MG TABS 3757981 AZITHROMYCIN Inactive HYDROCORTISONE 1 % CREA apply 3 to 4 times per day HYDROCORTISONE 1 % CREA 876720 HYDROCORTISONE Inactive CLARITIN 10 MG TAB 1 tablet by mouth daily as needed for allergies CLARITIN 10 MG TAB 098806 LORATADINE Inactive CEPHALEXIN 500 MG CAPS 1 tablet by mouth four times daily CEPHALEXIN 500 MG CAPS 857901 CEPHALEXIN Inactive CORTISPORIN 3.5-62822-2 SOLN 4gtts in affected ear QID x 7 days CORTISPORIN 3.5-50592-4 SOLN 642910 [id number] Inactive ZITHROMAX 250 MG TAB 2 po today, then 1 po q days 2-5 ZITHROMAX 250 MG TAB 6976328 AZITHROMYCIN Inactive AMOXICILLIN 500 MG TABS 2 PO bid x 7 d AMOXICILLIN 500 MG TABS 501534 AMOXICILLIN Inactive GENTAMICIN SULFATE 0.3 % SOLN 3 gtt OU tid x 7 d GENTAMICIN SULFATE 0.3 % SOLN 725235 GENTAMICIN SULFATE Inactive ZITHROMAX 250 MG TAB 2 po today, then 1 po q days 2-5 ZITHROMAX 250 MG TAB 2113554 AZITHROMYCIN Inactive Vital Signs Date Name Value Unit Range Description blood pressure, diastolic - 8462-4 83 mm[Hg] BP buchanan blood pressure, systolic - 8480-6 127 mm[Hg] BP sys height E&M - 8302-2 67.25 [in_us] Bdy height pulse rate E&M - 8867-4 96 /min Heart rate temperature E&M 98.4 [degF] Body temperature weight E&M - 3141-9 222.0 [lb_av] Weight Measured blood pressure, diastolic - 8462-4 75 mm[Hg] BP buchanan blood pressure, systolic - 8480-6 127 mm[Hg] BP sys pulse rate E&M - 8867-4 75 /min Heart rate temperature E&M 98.7 [degF] Body temperature weight E&M - 3141-9 190 [lb_av] Weight Measured Encounters Code Encounter Date Provider Facility CPT-85362 Level 3 Est. Patient 15:12:20 CDT Jennifer Mendez [facility] CPT-74913 Level 3 Est. Patient 14:20:20 CDT Jenae Arce [facility] CPT-38797 Level 4 Est. Patient 07:31:22 CDT Christ Fishman [facility] CPT-82132 Level 3 Est. Patient 15:20:00 CDT Samantha Mccarthy [facility] CPT-78839 Level 3 Est. Patient 07:02:29 CDT Christ Fishman [facility] CPT-21669 Level 4 Est. Patient 07:58:02 CDT Christ Fishman [facility] CPT-20100 Level 3 New Patient 16:50:18 CDT Charla Hammond MD [facility] CPT-71227 Level 3 Est. Patient 07:06:47 CDT Christ Fishman [facility] CPT-26393 Level 3 Est. Patient 13:03:14 CDT Christ iFshman [facility] CPT-34100 Level 3 Est. Patient 09:44:05 CDT Sanket Angel [facility] CPT-71088 Level 3 New Patient 14:13:26 CDT Christ Fishman [facility] CPT-27363 Level 3 New Patient 08:42:00 CDT Christ PEDERSEN [facility] CPT-48061 Level 3 Est. Patient 06:15:09 CUSTOM PROTECTION OFFICER Christ PEDERSEN [facility] CPT-37794 Level 3 Est. Patient 14:32:02 CDT Christ Fishman [facility] CPT-39193 Level 3 Est. Patient 13:55:47 CDT Sanket Anegl [facility] CPT-27328 Level 3 Est. Patient 07:36:37 CUSTOM PROTECTION OFFICER Christ PEDERSEN [facility] CPT-18298 Level 3 Est. Patient 10:35:07 CDT Christ Fishman [facility] Procedures Code Procedure Name Date Entry Date Standard Description CPT-73463 Venipuncture Draw Fee 16:34:16 CDT CPT-10790 Venipuncture Draw Fee 08:59:46 CDT CPT-69200 Venipuncture Draw Fee 16:02:00 CDT CPT-34896 Urine Dip (Floor Use Only) 16:50:18 CDT CPT-11576 Abd single AP View 09:49:22 CDT CPT-79883 Venipuncture Draw Fee 14:15:28 CDT CPT-63382 Rapid Strep -(Floor Use Only) 10:04:18 CDT CPT-29935 Venipuncture Draw Fee 10:04:18 CDT CPT-41596 Venipuncture Draw Fee 09:53:28 CUSTOM PROTECTION OFFICER CPT-89377 Rapid Strep -(Floor Use Only) 14:32:02 CDT CPT-49538 Influenza (Floor Use Only) 15:34:29 CUSTOM PROTECTION OFFICER CPT-36569 Rapid Strep -(Floor Use Only) 10:48:21 CDT CPT-48680 Venipuncture Draw Fee 10:48:21 CDT
--- OUTSIDE RECORDS SUMMARY | 2017-06-14 05:22 | XMS REPORT | Clinical Summary ---
Author Author Admin, MAGNOE Organization [facility] Address Unknown Phone Unavailable Allergies, Adverse Reactions, [...] infections of unspecified site PHARYNGITIS 462 Resolved Chrsit PEDERSEN Acute pharyngitis CONJUNCTIVITIS 372.30 Resolved Christ [...] tablet by mouth four times daily CEPHALEXIN 95239990567 No Longer Active Christ Kye PEDERSEN Active CLARITIN 10 MG TAB 1 tablet by mouth daily as needed for allergies LORATADINE 98895861509 No Longer Active Christ Kye PEDERSEN Active HYDROCORTISONE 1 % CREA apply 3 to 4 times per day HYDROCORTISONE 13502137685 No Longer Active Christ Kye PEDERSEN Active AZITHROMYCIN 500 MG TABS 1 tablet PO daily x 6 days AZITHROMYCIN 79500538431 No Longer Active Christ Harms PA Active ZITHROMAX 250 MG TAB 2 po today, then 1 po q days 2-5 AZITHROMYCIN 05421314124 No Longer Active Christ Harms PA Active AMOXICILLIN 500 MG CAP 1 tab by mouth 3 times daily x 10 days AMOXICILLIN 30726742014 No Longer Active Christ Harms PA Active GENTAMICIN SULFATE 0.3 % SOLN 3 gtt OU tid x 7 d GENTAMICIN SULFATE 74707316630 No Longer Active Sanket PEDERSEN Active AMOXICILLIN 500 MG TABS 2 PO bid x 7 d AMOXICILLIN 17148887311 No Longer Active Sanket PEDERSEN Active CLARITIN 10 MG CAPS 1qd LORATADINE 94714077709 No Longer Active Sanket PEDERSEN Active ZITHROMAX 250 MG TAB 2 po today, then 1 po q days 2-5 AZITHROMYCIN 88363328117 No Longer Active Christ Harms PA Active AMOXICILLIN 500 MG CAP 1 tab by mouth 3 times daily x 10 days AMOXICILLIN 29186197089 No Longer Active Christ Harms PA Active AMOXICILLIN 500 MG CAP 1 tab by mouth 3 times daily x 10 days AMOXICILLIN 500 MG CAP 109358 AMOXICILLIN Inactive CLARITIN 10 MG CAPS 1qd CLARITIN 10 MG CAPS LORATADINE Inactive AMOXICILLIN 500 MG CAP 1 tab by mouth 3 times daily x 10 days AMOXICILLIN 500 MG CAP 323049 AMOXICILLIN Inactive AZITHROMYCIN 500 MG TABS 1 tablet PO daily x 6 days AZITHROMYCIN 500 MG TABS 8234469 AZITHROMYCIN Inactive HYDROCORTISONE 1 % CREA apply 3 to 4 times per day HYDROCORTISONE 1 % CREA 635089 HYDROCORTISONE Inactive CLARITIN 10 MG TAB 1 tablet by mouth daily as needed for allergies CLARITIN 10 MG TAB 701478 LORATADINE Inactive CEPHALEXIN 500 MG CAPS 1 tablet by mouth four times daily CEPHALEXIN 500 MG CAPS 249119 CEPHALEXIN Inactive ZITHROMAX 250 MG TAB 2 po today, then 1 po q days 2-5 ZITHROMAX 250 MG TAB 9754585 AZITHROMYCIN Inactive AMOXICILLIN 500 MG TABS 2 PO bid x 7 d AMOXICILLIN 500 MG TABS 039701 AMOXICILLIN Inactive GENTAMICIN SULFATE 0.3 % SOLN 3 gtt OU tid x 7 d GENTAMICIN SULFATE 0.3 % SOLN 887909 GENTAMICIN SULFATE Inactive ZITHROMAX 250 MG TAB 2 po today, then 1 po q days 2-5 ZITHROMAX 250 MG TAB 4078982 AZITHROMYCIN Inactive Vital Signs Date Name Value [...] Value Unit Range Description Lab Report: CBC W/DIFF, Rapid Strep - [...] Lab Report: UADIP W/MICRO, AUTO - Chemistry RBC, urine, dipstick 3+ Negative protein, total urine random Trace mg/dL Negative Lab Report: UADIP W/MICRO, AUTO - Urinalysis glucose, urine, semiquantitative Negative Negative ketones, urine, by test strip Trace Negative bilirubin, urine 1+ Negative urine color Dark Yellow Colorless;Lightyellow;Straw;Yellow appearance, urine SL. Hazy Clear specific gravity, urine 1.030 1.000-1.030 pH, urine, semiquantitative 7.0 5.0-8.5 urobilinogen, urine, semiquantitative (dipstick) Normal Normal leukocyte esterase, urine, by dipstick Negative Negative nitrite, urine, semiquantitative Negative Negative Office Visit: CN hematuria - Chemistry protein, total urine random negative mg/dL RBC, urine, dipstick negative Office Visit: CN hematuria - Urinalysis ketones, urine, by test strip negative bilirubin, urine negative glucose, urine, semiquantitative negative pH, urine, semiquantitative 6 specific gravity, urine 1.010 urine color yellow appearance, urine clear leukocyte esterase, urine, by dipstick negative nitrite, urine, semiquantitative negative urobilinogen, urine, semiquantitative (dipstick) 0.2 protein, urine, semiquantitative (dipstick) negative urinalysis, routine Clean Catch Encounters Code Encounter Date Provider Facility CPT-15397 Level 3 Est. Patient 07:02:29 CDT Christ PEDERSEN [facility] CPT-24416 Level 4 Est. Patient 07:58:02 CDT Christ PEDERSEN [facility] CPT-91281 Level 3 New Patient 16:50:18 CDT Charla Hammond MD [facility] CPT-07410 Level 3 Est. Patient 07:06:47 CDT Christ PEDERSEN [facility] CPT-44116 Level 3 Est. Patient 13:03:14 CDT Christ PEDERSEN [facility] CPT-10159 Level 3 Est. Patient 09:44:05 CDT Sanket Angel [facility] CPT-56910 Level 3 New Patient 14:13:26 CDT Christ PEDERSEN [facility] CPT-95167 Level 3 New Patient 08:42:00 CDT Christ PEDERSEN [facility] CPT-56771 Level 3 Est. Patient 06:15:09 STEREOTYPER Christ PEDERSEN [facility] CPT-53525 Level 3 Est. Patient 14:32:02 CDT Christ PEDERSEN [facility] CPT-42462 Level 3 Est. Patient 13:55:47 CDT Sanket Angel [facility] CPT-64303 Level 3 Est. Patient 07:36:37 STEREOTYPER Christ PEDERSEN [facility] CPT-73203 Level 3 Est. Patient 10:35:07 CDT Christ PEDERSEN [facility] Procedures Code Procedure Name Date Entry Date Standard Description CPT-62984 Venipuncture Draw Fee 08:59:46 CDT CPT-01201 Venipuncture Draw Fee 16:02:00 CDT CPT-49853 Urine Dip (Floor Use Only) 16:50:18 CDT CPT-79747 Abd single AP View 09:49:22 CDT CPT-60299 Venipuncture Draw Fee 14:15:28 CDT CPT-38051 Rapid Strep -(Floor Use Only) 10:04:18 CDT CPT-60134 Venipuncture Draw Fee 10:04:18 CDT CPT-14206 Venipuncture Draw Fee 09:53:28 STEREOTYPER CPT-90014 Rapid Strep -(Floor Use Only) 14:32:02 CDT CPT-35061 Influenza (Floor Use Only) 15:34:29 STEREOTYPER CPT-71130 Rapid Strep -(Floor Use Only) 10:48:21 CDT CPT-99142 Venipuncture Draw Fee 10:48:21 CDT
--- OUTSIDE RECORDS SUMMARY | 2017-06-14 05:22 | XMS REPORT | Clinical Summary ---
Author Author Admin, LUISITO Organization [facility] Address Unknown Phone Unavailable Allergies, Adverse Reactions, [...] tablet by mouth four times daily CEPHALEXIN 63177532629 No Longer Active Christ Kye PEDERSEN Active CLARITIN 10 MG TAB 1 tablet by mouth daily as needed for allergies LORATADINE 01042647223 No Longer Active Christ Kye PEDERSEN Active HYDROCORTISONE 1 % CREA apply 3 to 4 times per day HYDROCORTISONE 42433013007 No Longer Active Christ Kye PEDERSEN Active AZITHROMYCIN 500 MG TABS 1 tablet PO daily x 6 days AZITHROMYCIN 98676716661 No Longer Active Christ Harms PA Active ZITHROMAX 250 MG TAB 2 po today, then 1 po q days 2-5 AZITHROMYCIN 95733554363 No Longer Active Christ Harms PA Active AMOXICILLIN 500 MG CAP 1 tab by mouth 3 times daily x 10 days AMOXICILLIN 31677173868 No Longer Active Christ Harms PA Active GENTAMICIN SULFATE 0.3 % SOLN 3 gtt OU tid x 7 d GENTAMICIN SULFATE 74593582872 No Longer Active Sanket PEDERSEN Active AMOXICILLIN 500 MG TABS 2 PO bid x 7 d AMOXICILLIN 54824158513 No Longer Active Sanket PEDERSEN Active CLARITIN 10 MG CAPS 1qd LORATADINE 09350925814 No Longer Active Sanket PEDERSEN Active ZITHROMAX 250 MG TAB 2 po today, then 1 po q days 2-5 AZITHROMYCIN 60352562168 No Longer Active Christ Harms PA Active AMOXICILLIN 500 MG CAP 1 tab by mouth 3 times daily x 10 days AMOXICILLIN 40380553236 No Longer Active Christ Harms PA Active AMOXICILLIN 500 MG CAP 1 tab by mouth 3 times daily x 10 days AMOXICILLIN 500 MG CAP 265961 AMOXICILLIN Inactive CLARITIN 10 MG CAPS 1qd CLARITIN 10 MG CAPS LORATADINE Inactive AMOXICILLIN 500 MG CAP 1 tab by mouth 3 times daily x 10 days AMOXICILLIN 500 MG CAP 963848 AMOXICILLIN Inactive AZITHROMYCIN 500 MG TABS 1 tablet PO daily x 6 days AZITHROMYCIN 500 MG TABS 7717889 AZITHROMYCIN Inactive HYDROCORTISONE 1 % CREA apply 3 to 4 times per day HYDROCORTISONE 1 % CREA 602771 HYDROCORTISONE Inactive CLARITIN 10 MG TAB 1 tablet by mouth daily as needed for allergies CLARITIN 10 MG TAB 588022 LORATADINE Inactive CEPHALEXIN 500 MG CAPS 1 tablet by mouth four times daily CEPHALEXIN 500 MG CAPS 568543 CEPHALEXIN Inactive ZITHROMAX 250 MG TAB 2 po today, then 1 po q days 2-5 ZITHROMAX 250 MG TAB 2535099 AZITHROMYCIN Inactive AMOXICILLIN 500 MG TABS 2 PO bid x 7 d AMOXICILLIN 500 MG TABS 401759 AMOXICILLIN Inactive GENTAMICIN SULFATE 0.3 % SOLN 3 gtt OU tid x 7 d GENTAMICIN SULFATE 0.3 % SOLN 481331 GENTAMICIN SULFATE Inactive ZITHROMAX 250 MG TAB 2 po today, then 1 po q days 2-5 ZITHROMAX 250 MG TAB 6443299 AZITHROMYCIN Inactive Vital Signs Date Name Value [...] pH, urine, semiquantitative 7.0 5.0-8.5 Office Visit: hematuria - Chemistry RBC, urine, dipstick negative protein, total urine random negative mg/dL Office Visit: hematuria - Urinalysis urinalysis, routine Clean Catch ketones, urine, by test strip negative bilirubin, urine negative glucose, urine, semiquantitative negative pH, urine, semiquantitative 6 specific gravity, urine 1.010 urine color yellow appearance, urine clear leukocyte esterase, urine, by dipstick negative nitrite, urine, semiquantitative negative urobilinogen, urine, semiquantitative (dipstick) 0.2 protein, urine, semiquantitative (dipstick) negative Encounters Code Encounter Date Provider Facility CPT-97008 Level 3 Est. Patient 07:02:29 CDT Christ PEDERSEN [facility] CPT-68607 Level 4 Est. Patient 07:58:02 CDT Christ PEDERSEN [facility] CPT-23737 Level 3 New Patient 16:50:18 CDT Charla Hammond MD [facility] CPT-20240 Level 3 Est. Patient 07:06:47 CDT Christ PEDERSEN [facility] CPT-03125 Level 3 Est. Patient 13:03:14 CDT Christ PEDERSEN [facility] CPT-39730 Level 3 Est. Patient 09:44:05 CDT Sanket [facility] CPT-86855 Level 3 New Patient 14:13:26 CDT Christ [facility] CPT-04796 Level 3 New Patient 08:42:00 CDT Christ Fishman [facility] CPT-31094 Level 3 Est. Patient 06:15:09 AUTOMOTIVE GLASS SPECIALIST Christ PEDERSEN [facility] CPT-60574 Level 3 Est. Patient 14:32:02 CDT Christ Fishman [facility] CPT-09656 Level 3 Est. Patient 13:55:47 CDT Sanket [facility] CPT-45263 Level 3 Est. Patient 07:36:37 AUTOMOTIVE GLASS SPECIALIST [facility] CPT-75001 Level 3 Est. Patient 10:35:07 CDT Christ Fishman [facility] Procedures Code Procedure Name Date Entry Date Standard Description CPT-94236 Venipuncture Draw Fee 08:59:46 CDT CPT-38563 Venipuncture Draw Fee 16:02:00 CDT CPT-92764 Urine Dip (Floor Use Only) 16:50:18 CDT CPT-47764 Abd single AP View 09:49:22 CDT CPT-73078 Venipuncture Draw Fee 14:15:28 CDT CPT-02513 Rapid Strep -(Floor Use Only) 10:04:18 CDT CPT-93694 Venipuncture Draw Fee 10:04:18 CDT CPT-48439 Venipuncture Draw Fee 09:53:28 AUTOMOTIVE GLASS SPECIALIST CPT-76748 Rapid Strep -(Floor Use Only) 14:32:02 CDT CPT-69227 Influenza (Floor Use Only) 15:34:29 AUTOMOTIVE GLASS SPECIALIST CPT-43126 Rapid Strep -(Floor Use Only) 10:48:21 CDT CPT-44970 Venipuncture Draw Fee 10:48:21 CDT
--- OUTSIDE RECORDS SUMMARY | 2017-06-14 05:23 | XMS REPORT | Clinical Summary ---
Author Author Admin, LUISITO Organization [facility] Address Unknown Phone Unavailable Allergies, Adverse Reactions, [...] of unknown origin 780.60 Resolved Samantha Yokum CREATIVE SERVICES MANAGER Fever, unspecified Acute pharyngitis 462 Resolved Samantha Yokum CREATIVE SERVICES MANAGER Acute pharyngitis Upper respiratory infection 465.9 Resolved Samantha Yokum CREATIVE SERVICES MANAGER Acute upper respiratory infections of unspecified site Allergic reaction 995.3 Resolved Samantha Yokum CREATIVE SERVICES MANAGER Allergy, unspecified, not elsewhere classified Dysuria 788.1 Resolved Samantha Yokum CREATIVE SERVICES MANAGER Dysuria Family history of renal disease V18.69 Active Christ PEDERSEN Family history of other kidney diseases Renal calculus, hx of V13.01 Active Christ PEDERSEN Personal history of urinary calculi Microscopic hematuria 599.72 Resolved Samantha Yokum CREATIVE SERVICES MANAGER Microscopic hematuria Hematuria 599.70 Resolved Samantha Yokum CREATIVE SERVICES MANAGER Hematuria, unspecified Muscle spasm 728.85 Resolved Samantha Yokum CREATIVE SERVICES MANAGER Spasm of muscle Easy bruising 782.9 Resolved Samantha Yokum CREATIVE SERVICES MANAGER Other symptoms involving skin and integumentary tissues Athletic physical, normal V70.3 Active Samanthajennifer Mccarthy CREATIVE SERVICES MANAGER Other general medical examination for administrative purposes Back spasm 724.8 Active Christ PEDERSEN Other symptoms referable to back Easy bruising 782.9 Active Christ PEDERSEN Other symptoms involving skin and integumentary tissues Otitis externa, acute, right 380.12 Active Jenae Arce CREATIVE SERVICES MANAGER Acute swimmers' ear Depression with anxiety 300.4 Active Jennifer Mendez CREATIVE SERVICES MANAGER Dysthymic disorder PHARYNGITIS, ACUTE, SEVERE ICD-462 Inactive Christ PEDERSEN UPPER RESPIRATORY INFECTION, ACUTE ICD-465.9 Inactive Christ PEDERSEN PHARYNGITIS ICD-462 Inactive Christ PEDERSEN CONJUNCTIVITIS ICD-372.30 Inactive Christ PEDERSEN Viral syndrome ICD-079.99 Inactive Christ PEDERSEN Hematuria ICD-599.70 Inactive Christ PEDERSEN 09/15 UTI ICD-599.0 Inactive Christ PEDERSEN Fever of unknown origin ICD-780.60 Inactive Samantha Yokum CREATIVE SERVICES MANAGER Acute pharyngitis ICD-462 Inactive Samantha Yokum CREATIVE SERVICES MANAGER Upper respiratory infection ICD-465.9 Inactive Samantha Yokum CREATIVE SERVICES MANAGER Allergic reaction ICD-995.3 Inactive Samantha Yokum CREATIVE SERVICES MANAGER Dysuria ICD-788.1 Inactive Samantha Yokum CREATIVE SERVICES MANAGER 02/08 Microscopic hematuria ICD-599.72 Inactive Samantha Yokum CREATIVE SERVICES MANAGER Hematuria ICD-599.70 Inactive Samantha Yokum CREATIVE SERVICES MANAGER Muscle spasm ICD-728.85 Inactive Samantha Yokum CREATIVE SERVICES MANAGER Easy bruising ICD-782.9 Inactive Samantha Yokum CREATIVE SERVICES MANAGER Medication List Medication Instructions Start Date Stop Date Generic Name NDC Status Provider Patient Instruction PAXIL 20 MG ORAL TABS 1 tab daily PAROXETINE HCL 40681082831 Active Soo Madl PLAYGROUND SUPERVISOR Active CORTISPORIN 3.5-19695-4 SOLN 4gtts in affected ear QID x 7 days [id number] [id number] No Longer Active Soo Madl PLAYGROUND SUPERVISOR Active CEPHALEXIN 500 MG CAPS 1 tablet by mouth four times daily CEPHALEXIN 75133051008 No Longer Active Christ Kye PEDERSEN Active CLARITIN 10 MG TAB 1 tablet by mouth daily as needed for allergies LORATADINE 54466145070 No Longer Active Christ Harms PA Active HYDROCORTISONE 1 % CREA apply 3 to 4 times per day HYDROCORTISONE 39042295194 No Longer Active Christ Harms PA Active AZITHROMYCIN 500 MG TABS 1 tablet PO daily x 6 days AZITHROMYCIN 33787820408 No Longer Active Christ Harms PA Active ZITHROMAX 250 MG TAB 2 po today, then 1 po q days 2-5 AZITHROMYCIN 32409036702 No Longer Active Christ Harms PA Active AMOXICILLIN 500 MG CAP 1 tab by mouth 3 times daily x 10 days AMOXICILLIN 13558748453 No Longer Active Christ Harms PA Active GENTAMICIN SULFATE 0.3 % SOLN 3 gtt OU tid x 7 d GENTAMICIN SULFATE 78405582427 No Longer Active Sanket PEDERSEN Active AMOXICILLIN 500 MG TABS 2 PO bid x 7 d AMOXICILLIN 00036850486 No Longer Active Sanket PEDERSEN Active CLARITIN 10 MG CAPS 1qd LORATADINE 15175202157 No Longer Active Sanket PEDERSEN Active ZITHROMAX 250 MG TAB 2 po today, then 1 po q days 2-5 AZITHROMYCIN 10574761337 No Longer Active Christ Harms PA Active AMOXICILLIN 500 MG CAP 1 tab by mouth 3 times daily x 10 days AMOXICILLIN 56289553699 No Longer Active Christ Harms PA Active AMOXICILLIN 500 MG CAP 1 tab by mouth 3 times daily x 10 days AMOXICILLIN 500 MG CAP 627994 AMOXICILLIN Inactive CLARITIN 10 MG CAPS 1qd CLARITIN 10 MG CAPS 736116 LORATADINE Inactive AMOXICILLIN 500 MG CAP 1 tab by mouth 3 times daily x 10 days AMOXICILLIN 500 MG CAP 315043 AMOXICILLIN Inactive AZITHROMYCIN 500 MG TABS 1 tablet PO daily x 6 days AZITHROMYCIN 500 MG TABS 8534992 AZITHROMYCIN Inactive HYDROCORTISONE 1 % CREA apply 3 to 4 times per day HYDROCORTISONE 1 % CREA 110751 HYDROCORTISONE Inactive CLARITIN 10 MG TAB 1 tablet by mouth daily as needed for allergies CLARITIN 10 MG TAB 544826 LORATADINE Inactive CEPHALEXIN 500 MG CAPS 1 tablet by mouth four times daily CEPHALEXIN 500 MG CAPS 468447 CEPHALEXIN Inactive CORTISPORIN 3.5-56233-4 SOLN 4gtts in affected ear QID x 7 days CORTISPORIN 3.5-40885-9 SOLN 286383 [id number] Inactive ZITHROMAX 250 MG TAB 2 po today, then 1 po q days 2-5 ZITHROMAX 250 MG TAB 0210395 AZITHROMYCIN Inactive AMOXICILLIN 500 MG TABS 2 PO bid x 7 d AMOXICILLIN 500 MG TABS 475678 AMOXICILLIN Inactive GENTAMICIN SULFATE 0.3 % SOLN 3 gtt OU tid x 7 d GENTAMICIN SULFATE 0.3 % SOLN 459987 GENTAMICIN SULFATE Inactive ZITHROMAX 250 MG TAB 2 po today, then 1 po q days 2-5 ZITHROMAX 250 MG TAB 7949568 AZITHROMYCIN Inactive Vital Signs Date Name Value [...] Measured Encounters Code Encounter Date Provider Facility CPT-94248 Level 3 Est. Patient 15:12:20 CDT Jennifer Mendez [facility] CPT-57816 Level 3 Est. Patient 14:20:20 CDT Jenae Arce [facility] CPT-41396 Level 4 Est. Patient 07:31:22 CDT Christ Fishman [facility] CPT-80703 Level 3 Est. Patient 15:20:00 CDT Samantha Mccarthy [facility] CPT-08793 Level 3 Est. Patient 07:02:29 CDT Christ PEDERSEN [facility] CPT-96555 Level 4 Est. Patient 07:58:02 CDT Christ Fishman [facility] CPT-65688 Level 3 New Patient 16:50:18 CDT Charla Hammond MD [facility] CPT-71235 Level 3 Est. Patient 07:06:47 CDT Christ Fishman [facility] CPT-60020 Level 3 Est. Patient 13:03:14 CDT Christ PEDERSEN [facility] CPT-27343 Level 3 Est. Patient 09:44:05 CDT Sanket Angel [facility] CPT-49332 Level 3 New Patient 14:13:26 CDT Christ Fishman [facility] CPT-97217 Level 3 New Patient 08:42:00 CDT Christ PEDERSEN [facility] CPT-08550 Level 3 Est. Patient 06:15:09 REAMING MACHINE TENDER Christ Fishman [facility] CPT-09053 Level 3 Est. Patient 14:32:02 CDT Christ PEDERSEN [facility] CPT-23551 Level 3 Est. Patient 13:55:47 CDT Sanket Angel [facility] CPT-11046 Level 3 Est. Patient 07:36:37 REAMING MACHINE TENDER Christ PEDERSEN [facility] CPT-79337 Level 3 Est. Patient 10:35:07 CDT Christ Fishman [facility] Procedures Code Procedure Name Date Entry Date Standard Description CPT-95480 Venipuncture Draw Fee 16:34:16 CDT CPT-13601 Venipuncture Draw Fee 08:59:46 CDT CPT-44210 Venipuncture Draw Fee 16:02:00 CDT CPT-30155 Urine Dip (Floor Use Only) 16:50:18 CDT CPT-67860 Abd single AP View 09:49:22 CDT CPT-00595 Venipuncture Draw Fee 14:15:28 CDT CPT-64363 Rapid Strep -(Floor Use Only) 10:04:18 CDT CPT-52605 Venipuncture Draw Fee 10:04:18 CDT CPT-12244 Venipuncture Draw Fee 09:53:28 REAMING MACHINE TENDER CPT-18170 Rapid Strep -(Floor Use Only) 14:32:02 CDT CPT-23150 Influenza (Floor Use Only) 15:34:29 REAMING MACHINE TENDER CPT-79569 Rapid Strep -(Floor Use Only) 10:48:21 CDT CPT-50728 Venipuncture Draw Fee 10:48:21 CDT
--- OUTSIDE RECORDS SUMMARY | 2017-06-14 05:23 | XMS REPORT | Clinical Summary ---
Author Author Admin, LUISITO Organization [facility] Address Unknown Phone Unavailable Allergies, Adverse Reactions, Alerts Allergy Name Reaction Description Start Date Severity Status Provider No Known Allergies Anamaria Anderson LPN NKDA Critical Active Anamaria Anderson PELLET PREPARATION OPERATOR Conditions or Problems Problem Name Problem Code [...] of unknown origin 780.60 Resolved Samantha Yokum WHEEL ALIGNER Fever, unspecified Acute pharyngitis 462 Resolved Samantha Yokum WHEEL ALIGNER Acute pharyngitis Upper respiratory infection 465.9 Resolved Samantha Yokum WHEEL ALIGNER Acute upper respiratory infections of unspecified site Allergic reaction 995.3 Resolved Samantha Yokum WHEEL ALIGNER Allergy, unspecified, not elsewhere classified Dysuria 788.1 Resolved Samantha Yokum WHEEL ALIGNER Dysuria Family history of renal disease V18.69 Active Christ PEDERSEN Family history of other kidney diseases Renal calculus, hx of V13.01 Active Christ PEDERSEN Personal history of urinary calculi Microscopic hematuria 599.72 Resolved Samantha Yokum WHEEL ALIGNER Microscopic hematuria Hematuria 599.70 Resolved Samantha Yokum WHEEL ALIGNER Hematuria, unspecified Muscle spasm 728.85 Resolved Samantha Yokum WHEEL ALIGNER Spasm of muscle Easy bruising 782.9 Resolved Samantha Yokum WHEEL ALIGNER Other symptoms involving skin and integumentary tissues Athletic physical, normal V70.3 Active Samanthajennifer Mccarthy WHEEL ALIGNER Other general medical examination for administrative purposes Back spasm 724.8 Active Christ PEDERSEN Other symptoms referable to back Easy bruising 782.9 Active Christ PEDERSEN Other symptoms involving skin and integumentary tissues Otitis externa, acute, right 380.12 Active Jenae Arce WHEEL ALIGNER Acute swimmers' ear Depression with anxiety 300.4 Active Jennifer Mendez WHEEL ALIGNER Dysthymic disorder PHARYNGITIS, ACUTE, SEVERE ICD-462 Inactive Christ PEDERSEN UPPER RESPIRATORY INFECTION, ACUTE ICD-465.9 Inactive Christ PEDERSEN PHARYNGITIS ICD-462 Inactive Christ PEDERSEN CONJUNCTIVITIS ICD-372.30 Inactive Christ PEDERSEN Viral syndrome ICD-079.99 Inactive Christ PEDERSEN Hematuria ICD-599.70 Inactive Christ Kye PA 09/15 UTI ICD-599.0 Inactive Christ Kye PA Fever of unknown origin ICD-780.60 Inactive Samantha Yokum WHEEL ALIGNER Acute pharyngitis ICD-462 Inactive Samantha Yokum WHEEL ALIGNER Upper respiratory infection ICD-465.9 Inactive Samantha Yokum WHEEL ALIGNER Allergic reaction ICD-995.3 Inactive Samantha Yokum WHEEL ALIGNER Dysuria ICD-788.1 Inactive Samantha Yokum WHEEL ALIGNER 02/08 Microscopic hematuria ICD-599.72 Inactive Samantha Yokum WHEEL ALIGNER Hematuria ICD-599.70 Inactive Samantha Yokum WHEEL ALIGNER Muscle spasm ICD-728.85 Inactive Samantha Yokum WHEEL ALIGNER Easy bruising ICD-782.9 Inactive Samantha Yokum WHEEL ALIGNER Medication List Medication Instructions Start Date Stop Date Generic Name NDC Status Provider Patient Instruction PAROXETINE HCL 10 MG TABS 1 daily for depression/anxiety PAROXETINE HCL 71660744347 Active Jennifer Mendez WHEEL ALIGNER Active CORTISPORIN 3.5-95561-1 SOLN 4gtts in affected ear QID x 7 days [id number] 16746571452 No Longer Active Soo Muse PELLET PREPARATION OPERATOR Active CEPHALEXIN 500 MG CAPS 1 tablet by mouth four times daily CEPHALEXIN 92712714805 No Longer Active Christ PEDERSEN Active CLARITIN 10 MG TAB 1 tablet by mouth daily as needed for allergies LORATADINE 65006249848 No Longer Active Christ Harms PA Active HYDROCORTISONE 1 % CREA apply 3 to 4 times per day HYDROCORTISONE 70675321368 No Longer Active Christ Harms PA Active AZITHROMYCIN 500 MG TABS 1 tablet PO daily x 6 days AZITHROMYCIN 30911605549 No Longer Active Christ Harms PA Active ZITHROMAX 250 MG TAB 2 po today, then 1 po q days 2-5 AZITHROMYCIN 96904346034 No Longer Active Christ Harms PA Active AMOXICILLIN 500 MG CAP 1 tab by mouth 3 times daily x 10 days AMOXICILLIN 98723613394 No Longer Active Christ Harms PA Active GENTAMICIN SULFATE 0.3 % SOLN 3 gtt OU tid x 7 d GENTAMICIN SULFATE 96711986896 No Longer Active Sanket PEDERSEN Active AMOXICILLIN 500 MG TABS 2 PO bid x 7 d AMOXICILLIN 83218863365 No Longer Active Sanket PEDERSEN Active CLARITIN 10 MG CAPS 1qd LORATADINE 57396719307 No Longer Active Sanket PEDERSEN Active ZITHROMAX 250 MG TAB 2 po today, then 1 po q days 2-5 AZITHROMYCIN 95125275074 No Longer Active Christ Harms PA Active AMOXICILLIN 500 MG CAP 1 tab by mouth 3 times daily x 10 days AMOXICILLIN 26023942667 No Longer Active Christ Harms PA Active AMOXICILLIN 500 MG CAP 1 tab by mouth 3 times daily x 10 days AMOXICILLIN 500 MG CAP 091917 AMOXICILLIN Inactive CLARITIN 10 MG CAPS 1qd CLARITIN 10 MG CAPS 003640 LORATADINE Inactive AMOXICILLIN 500 MG CAP 1 tab by mouth 3 times daily x 10 days AMOXICILLIN 500 MG CAP 976011 AMOXICILLIN Inactive AZITHROMYCIN 500 MG TABS 1 tablet PO daily x 6 days AZITHROMYCIN 500 MG TABS 5718744 AZITHROMYCIN Inactive HYDROCORTISONE 1 % CREA apply 3 to 4 times per day HYDROCORTISONE 1 % CREA 049756 HYDROCORTISONE Inactive CLARITIN 10 MG TAB 1 tablet by mouth daily as needed for allergies CLARITIN 10 MG TAB 888508 LORATADINE Inactive CEPHALEXIN 500 MG CAPS 1 tablet by mouth four times daily CEPHALEXIN 500 MG CAPS 147950 CEPHALEXIN Inactive CORTISPORIN 3.5-78140-0 SOLN 4gtts in affected ear QID x 7 days CORTISPORIN 3.5-99549-7 SOLN 164572 [id number] Inactive ZITHROMAX 250 MG TAB 2 po today, then 1 po q days 2-5 ZITHROMAX 250 MG TAB 6699751 AZITHROMYCIN Inactive AMOXICILLIN 500 MG TABS 2 PO bid x 7 d AMOXICILLIN 500 MG TABS 095354 AMOXICILLIN Inactive GENTAMICIN SULFATE 0.3 % SOLN 3 gtt OU tid x 7 d GENTAMICIN SULFATE 0.3 % SOLN 350791 GENTAMICIN SULFATE Inactive ZITHROMAX 250 MG TAB 2 po today, then 1 po q days 2-5 ZITHROMAX 250 MG TAB 6252810 AZITHROMYCIN Inactive Vital Signs Date Name Value [...] Measured Encounters Code Encounter Date Provider Facility CPT-21611 Level 3 Est. Patient 15:12:20 CDT Jennifer Mendez [facility] [facility] CPT-97275 Level 3 Est. Patient 14:20:20 CDT Jenae Arce [facility] [facility] CPT-06969 Level 4 Est. Patient 07:31:22 CDT Christ Fishman [facility] CPT-86003 Level 3 Est. Patient 15:20:00 CDT Samantha Montoyakaiserabilio [facility] CPT-08328 Level 3 Est. Patient 07:02:29 CDT Christ Fishman [facility] CPT-93272 Level 4 Est. Patient 07:58:02 CDT Christ Fishman [facility] CPT-28809 Level 3 New Patient 16:50:18 CDT Charla Hammond MD [facility] CPT-78585 Level 3 Est. Patient 07:06:47 CDT Christ Fishman [facility] CPT-95600 Level 3 Est. Patient 13:03:14 CDT Christ Fishman [facility] CPT-67163 Level 3 Est. Patient 09:44:05 CDT Sanket Angel [facility] CPT-58988 Level 3 New Patient 14:13:26 CDT Christ Fishman [facility] CPT-66846 Level 3 New Patient 08:42:00 CDT Christ PEDERSEN [facility] CPT-75452 Level 3 Est. Patient 06:15:09 HAND II CUTTER Christ PEDERSEN [facility] CPT-50354 Level 3 Est. Patient 14:32:02 CDT Christ Harms [facility] CPT-83708 Level 3 Est. Patient 13:55:47 CDT Sanket Angel [facility] CPT-09944 Level 3 Est. Patient 07:36:37 HAND II CUTTER Christ PEDERSEN [facility] CPT-83271 Level 3 Est. Patient 10:35:07 CDT Christ Fishman [facility] Procedures Code Procedure Name Date Entry Date Standard Description CPT-94447 Venipuncture Draw Fee 16:34:16 CDT CPT-53967 Venipuncture Draw Fee 08:59:46 CDT CPT-67233 Venipuncture Draw Fee 16:02:00 CDT CPT-94571 Urine Dip (Floor Use Only) 16:50:18 CDT CPT-42382 Abd single AP View 09:49:22 CDT CPT-88451 Venipuncture Draw Fee 14:15:28 CDT CPT-45880 Rapid Strep -(Floor Use Only) 10:04:18 CDT CPT-94834 Venipuncture Draw Fee 10:04:18 CDT CPT-20612 Venipuncture Draw Fee 09:53:28 HAND II CUTTER CPT-64089 Rapid Strep -(Floor Use Only) 14:32:02 CDT CPT-18563 Influenza (Floor Use Only) 15:34:29 HAND II CUTTER CPT-52264 Rapid Strep -(Floor Use Only) 10:48:21 CDT CPT-69593 Venipuncture Draw Fee 10:48:21 CDT
--- OUTSIDE RECORDS SUMMARY | 2017-06-14 05:23 | XMS REPORT | Clinical Summary ---
Author Author Admin, LUISITO Organization [facility] Address Unknown Phone Unavailable Allergies, Adverse [...] of unknown origin 780.60 Resolved Samantha Yokum ELEVATOR TECHNICIAN Fever, unspecified Acute pharyngitis 462 Resolved Samantha Yokum ELEVATOR TECHNICIAN Acute pharyngitis Upper respiratory infection 465.9 Resolved Samantha Yokum ELEVATOR TECHNICIAN Acute upper respiratory infections of unspecified site Allergic reaction 995.3 Resolved Samantha Yokum ELEVATOR TECHNICIAN Allergy, unspecified, not elsewhere classified Dysuria 788.1 Resolved Samantha Yokum ELEVATOR TECHNICIAN Dysuria Family history of renal disease V18.69 Active Christ PEDERSEN Family history of other kidney diseases Renal calculus, hx of V13.01 Resolved Jennifer Mendez APRN Personal history of urinary calculi Microscopic hematuria 599.72 Resolved Samantha Yokum ELEVATOR TECHNICIAN Microscopic hematuria Hematuria 599.70 Resolved Samantha Yokum ELEVATOR TECHNICIAN Hematuria, unspecified Muscle spasm 728.85 Resolved Samantha Yokum ELEVATOR TECHNICIAN Spasm of muscle Easy bruising 782.9 Resolved Samantha Yokum ELEVATOR TECHNICIAN Other symptoms involving skin and integumentary tissues Athletic physical, normal V70.3 Active Samantha Fabio ARTN Other general medical examination for administrative purposes Back spasm 724.8 Active Christ PEDERSEN Other symptoms referable to back Easy bruising 782.9 Active Christ PEDERSEN Other symptoms involving skin and integumentary tissues Otitis externa, acute, right 380.12 Active Jenae Arce ELEVATOR TECHNICIAN Acute swimmers' ear Depression with anxiety 300.4 [...] of unknown origin ICD-780.60 Inactive Samantha Yokum ELEVATOR TECHNICIAN Acute pharyngitis ICD-462 Inactive Samantha Yokum ELEVATOR TECHNICIAN Upper respiratory infection ICD-465.9 Inactive Samantha Yokum ELEVATOR TECHNICIAN Allergic reaction ICD-995.3 Inactive Samantha Yokum ELEVATOR TECHNICIAN Dysuria ICD-788.1 Inactive Samantha Yokum ELEVATOR TECHNICIAN 02/08 Renal calculus, hx of ICD-V13.01 Inactive Jennifer Mendez ELEVATOR TECHNICIAN Microscopic hematuria ICD-599.72 Inactive Samantha Yokum ELEVATOR TECHNICIAN Hematuria ICD-599.70 Inactive Samantha Yokum ELEVATOR TECHNICIAN Muscle spasm ICD-728.85 Inactive Samantha Yokum ELEVATOR TECHNICIAN Easy bruising ICD-782.9 Inactive Samantha Yokum ELEVATOR TECHNICIAN Medication List Medication Instructions Start Date Stop Date Generic Name NDC Status Provider Patient Instruction PAXIL 20 MG ORAL TABS 1 tab daily PAROXETINE HCL 23763991871 Active Soo Martell SCALE CLERK Active CORTISPORIN 3.5-03354-2 SOLN 4gtts in affected ear QID x 7 days [id number] 45114448800 No Longer Active Soo Martell SCALE CLERK Active CEPHALEXIN 500 MG CAPS 1 tablet by mouth four times daily CEPHALEXIN 24087562019 No Longer Active Christ Harms PA Active CLARITIN 10 MG TAB 1 tablet by mouth daily as needed for allergies LORATADINE 74105179332 No Longer Active Christ Harms PA Active HYDROCORTISONE 1 % CREA apply 3 to 4 times per day HYDROCORTISONE 44946331609 No Longer Active Christ Harms PA Active AZITHROMYCIN 500 MG TABS 1 tablet PO daily x 6 days AZITHROMYCIN 40069372457 No Longer Active Christ Harms PA Active ZITHROMAX 250 MG TAB 2 po today, then 1 po q days 2-5 AZITHROMYCIN 53498900764 No Longer Active Christ Harms PA Active AMOXICILLIN 500 MG CAP 1 tab by mouth 3 times daily x 10 days AMOXICILLIN 80457096828 No Longer Active Christ Harms PA Active GENTAMICIN SULFATE 0.3 % SOLN 3 gtt OU tid x 7 d GENTAMICIN SULFATE 96546000824 No Longer Active Sanket PEDERSEN Active AMOXICILLIN 500 MG TABS 2 PO bid x 7 d AMOXICILLIN 22218201560 No Longer Active Sanket PEDERSEN Active CLARITIN 10 MG CAPS 1qd LORATADINE 75211622757 No Longer Active Sanket PEDERSEN Active ZITHROMAX 250 MG TAB 2 po today, then 1 po q days 2-5 AZITHROMYCIN 89088506788 No Longer Active Christ Harms PA Active AMOXICILLIN 500 MG CAP 1 tab by mouth 3 times daily x 10 days AMOXICILLIN 99091263309 No Longer Active Christ Harms PA Active AMOXICILLIN 500 MG CAP 1 tab by mouth 3 times daily x 10 days AMOXICILLIN 500 MG CAP 337719 AMOXICILLIN Inactive CLARITIN 10 MG CAPS 1qd CLARITIN 10 MG CAPS 686489 LORATADINE Inactive AMOXICILLIN 500 MG CAP 1 tab by mouth 3 times daily x 10 days AMOXICILLIN 500 MG CAP 257743 AMOXICILLIN Inactive AZITHROMYCIN 500 MG TABS 1 tablet PO daily x 6 days AZITHROMYCIN 500 MG TABS 5484445 AZITHROMYCIN Inactive HYDROCORTISONE 1 % CREA apply 3 to 4 times per day HYDROCORTISONE 1 % CREA 754641 HYDROCORTISONE Inactive CLARITIN 10 MG TAB 1 tablet by mouth daily as needed for allergies CLARITIN 10 MG TAB 706535 LORATADINE Inactive CEPHALEXIN 500 MG CAPS 1 tablet by mouth four times daily CEPHALEXIN 500 MG CAPS 931262 CEPHALEXIN Inactive CORTISPORIN 3.5-37262-2 SOLN 4gtts in affected ear QID x 7 days CORTISPORIN 3.5-29697-3 SOLN 485367 [id number] Inactive ZITHROMAX 250 MG TAB 2 po today, then 1 po q days 2-5 ZITHROMAX 250 MG TAB 0199125 AZITHROMYCIN Inactive AMOXICILLIN 500 MG TABS 2 PO bid x 7 d AMOXICILLIN 500 MG TABS 304812 AMOXICILLIN Inactive GENTAMICIN SULFATE 0.3 % SOLN 3 gtt OU tid x 7 d GENTAMICIN SULFATE 0.3 % SOLN 641949 GENTAMICIN SULFATE Inactive ZITHROMAX 250 MG TAB 2 po today, then 1 po q days 2-5 ZITHROMAX 250 MG TAB 1237748 AZITHROMYCIN Inactive Vital Signs Date Name Value Unit Range Description blood pressure, diastolic - 8462-4 68 mm[Hg] BP buchanan blood pressure, systolic - 8480-6 119 mm[Hg] BP sys height E&M - 8302-2 67.25 [in_us] Bdy height pulse rate E&M - 8867-4 76 /min Heart rate temperature E&M 97.5 [degF] Body temperature weight E&M - 3141-9 219 [lb_av] Weight Measured blood pressure, diastolic - 8462-4 83 mm[Hg] [...] Measured Encounters Code Encounter Date Provider Facility CPT-61843 Level 3 Est. Patient 10:58:20 CDT Jennifer Mendez [facility] [place] CPT-54235 Level 3 Est. Patient 15:12:20 CDT Jennifer Mendez [facility] CPT-58774 Level 3 Est. Patient 14:20:20 CDT Jenae Arce [facility] CPT-65153 Level 4 Est. Patient 07:31:22 CDT Christ PEDERSEN [facility] CPT-48617 Level 3 Est. Patient 15:20:00 CDT Samantha Mccarthy [facility] CPT-09607 Level 3 Est. Patient 07:02:29 CDT Christ PEDERSEN [facility] CPT-84310 Level 4 Est. Patient 07:58:02 CDT Christ PEDERSEN [facility] CPT-38015 Level 3 New Patient 16:50:18 CDT Charla Hammond MD [facility] CPT-88356 Level 3 Est. Patient 07:06:47 CDT Christ PEDERSEN [facility] CPT-48207 Level 3 Est. Patient 13:03:14 CDT Christ PEDERSEN [facility] CPT-61974 Level 3 Est. Patient 09:44:05 CDT Sanket Angel [facility] CPT-60276 Level 3 New Patient 14:13:26 CDT Christ PEDERSEN [facility] CPT-40864 Level 3 New Patient 08:42:00 CDT Christ PEDERSEN [facility] [place] CPT-89954 Level 3 Est. Patient 06:15:09 OCC THERAPIST Christ PEDERSEN [facility] [place] CPT-99173 Level 3 Est. Patient 14:32:02 CDT Christ PEDERSEN [facility] CPT-90651 Level 3 Est. Patient 13:55:47 CDT Sanket Angel [facility] CPT-39087 Level 3 Est. Patient 07:36:37 OCC THERAPIST Christ PEDERSEN [facility] CPT-66090 Level 3 Est. Patient 10:35:07 CDT Christ PEDERSEN [facility] Procedures Code Procedure Name Date Entry Date Standard Description CPT-42615 Abd compl w upright - XRAY USE ONLY 11:08:53 CDT 01/11 CPT-56832 Venipuncture Draw Fee 16:34:16 CDT CPT-95487 Venipuncture Draw Fee 08:59:46 CDT CPT-54353 Venipuncture Draw Fee 16:02:00 CDT CPT-82708 Urine Dip (Floor Use Only) 16:50:18 CDT CPT-14789 Abd single AP View 09:49:22 CDT CPT-15497 Venipuncture Draw Fee 14:15:28 CDT CPT-14496 Rapid Strep -(Floor Use Only) 10:04:18 CDT CPT-43940 Venipuncture Draw Fee 10:04:18 CDT CPT-60258 Venipuncture Draw Fee 09:53:28 OCC THERAPIST CPT-59166 Rapid Strep -(Floor Use Only) 14:32:02 CDT CPT-37452 Influenza (Floor Use Only) 15:34:29 OCC THERAPIST CPT-76773 Rapid Strep -(Floor Use Only) 10:48:21 CDT CPT-89392 Venipuncture Draw Fee 10:48:21 CDT
[2017-06-14] MEDS ORDERED: ALPR0.5T7 (05:24)
[2017-06-14] MEDS ORDERED: LAMO25TA (05:24)
--- OUTSIDE RECORDS SUMMARY | 2017-06-14 05:24 | XMS REPORT | Clinical Summary ---
Author Author Admin, LUISITO Organization [facility] Address Unknown Phone Unavailable Allergies, Adverse [...] 599.70 Active Charla Hammond MD Hematuria, unspecified PHARYNGITIS, ACUTE, SEVERE ICD-462 Inactive Christ PEDERSEN [...] tablet by mouth four times daily CEPHALEXIN 37579950457 Active Christ PEDERSEN Active CLARITIN 10 MG TAB 1 tablet by mouth daily as needed for allergies LORATADINE 78610252845 No Longer Active Christ Kye PEDERSEN Active HYDROCORTISONE 1 % CREA apply 3 to 4 times per day HYDROCORTISONE 75198157811 No Longer Active Christ Kye PEDERSEN Active AZITHROMYCIN 500 MG TABS 1 tablet PO daily x 6 days AZITHROMYCIN 28178718324 No Longer Active Christ Kye PEDERSEN Active ZITHROMAX 250 MG TAB 2 po today, then 1 po q days 2-5 AZITHROMYCIN 43462677225 No Longer Active Christ Kye PA Active AMOXICILLIN 500 MG CAP 1 tab by mouth 3 times daily x 10 days AMOXICILLIN 43215759537 No Longer Active Christ Kye PEDERSEN Active GENTAMICIN SULFATE 0.3 % SOLN 3 gtt OU tid x 7 d GENTAMICIN SULFATE 31105816771 No Longer Active Sanket PEDERSEN Active AMOXICILLIN 500 MG TABS 2 PO bid x 7 d AMOXICILLIN 47246180798 No Longer Active Sanket PEDERSEN Active CLARITIN 10 MG CAPS 1qd LORATADINE 63679288364 No Longer Active Sanket PEDERSEN Active ZITHROMAX 250 MG TAB 2 po today, then 1 po q days 2-5 AZITHROMYCIN 76046249133 No Longer Active Christ Kye PEDERSEN Active AMOXICILLIN 500 MG CAP 1 tab by mouth 3 times daily x 10 days AMOXICILLIN 23504816483 No Longer Active Christ Kye PA Active AMOXICILLIN 500 MG CAP 1 tab by mouth 3 times daily x 10 days AMOXICILLIN 500 MG CAP 769220 AMOXICILLIN Inactive CLARITIN 10 MG CAPS 1qd CLARITIN 10 MG CAPS LORATADINE Inactive AMOXICILLIN 500 MG CAP 1 tab by mouth 3 times daily x 10 days AMOXICILLIN 500 MG CAP 318977 AMOXICILLIN Inactive AZITHROMYCIN 500 MG TABS 1 tablet PO daily x 6 days AZITHROMYCIN 500 MG TABS 9407149 AZITHROMYCIN Inactive HYDROCORTISONE 1 % CREA apply 3 to 4 times per day HYDROCORTISONE 1 % CREA 154636 HYDROCORTISONE Inactive CLARITIN 10 MG TAB 1 tablet by mouth daily as needed for allergies CLARITIN 10 MG TAB 950362 LORATADINE Inactive ZITHROMAX 250 MG TAB 2 po today, then 1 po q days 2-5 ZITHROMAX 250 MG TAB 3964927 AZITHROMYCIN Inactive AMOXICILLIN 500 MG TABS 2 PO bid x 7 d AMOXICILLIN 500 MG TABS 968401 AMOXICILLIN Inactive GENTAMICIN SULFATE 0.3 % SOLN 3 gtt OU tid x 7 d GENTAMICIN SULFATE 0.3 % SOLN 588917 GENTAMICIN SULFATE Inactive ZITHROMAX 250 MG TAB 2 po today, then 1 po q days 2-5 ZITHROMAX 250 MG TAB 7702304 AZITHROMYCIN Inactive Vital Signs Date Name Value Unit Range Description blood pressure, diastolic - 8462-4 64 mm[Hg] [...] Catch Encounters Code Encounter Date Provider Facility CPT-08907 Level 4 Est. Patient 07:58:02 CDT Christ PEDERSEN [facility] CPT-59798 Level 3 New Patient 16:50:18 CDT Charla Hammond MD [facility] CPT-95234 Level 3 Est. Patient 07:06:47 CDT Christ PEDERSEN [facility] CPT-64581 Level 3 Est. Patient 13:03:14 CDT Christ PEDERSEN [facility] CPT-82208 Level 3 Est. Patient 09:44:05 CDT Sanket PEDERSEN [facility] CPT-30021 Level 3 New Patient 14:13:26 CDT Christ PEDERSEN [facility] CPT-79353 Level 3 New Patient 08:42:00 CDT Christ Kye PEDERSEN [facility] CPT-79106 Level 3 Est. Patient 06:15:09 PANEL BEATER Christ Kye PEDERSEN [facility] CPT-14618 Level 3 Est. Patient 14:32:02 CDT Christ PEDERSEN [facility] CPT-11088 Level 3 Est. Patient 13:55:47 CDT Sanket Angel [facility] [place] CPT-93322 Level 3 Est. Patient 07:36:37 PANEL BEATER Christ Fishman [facility] [place] CPT-82578 Level 3 Est. Patient 10:35:07 CDT [facility] Procedures Code Procedure Name Date Entry Date Standard Description CPT-65877 Venipuncture Draw Fee 16:02:00 CDT CPT-45161 Urine Dip (Floor Use Only) 16:50:18 CDT CPT-76104 Abd single AP View 09:49:22 CDT CPT-35595 Venipuncture Draw Fee 14:15:28 CDT CPT-21528 Rapid Strep -(Floor Use Only) 10:04:18 CDT CPT-23366 Venipuncture Draw Fee 10:04:18 CDT CPT-41804 Venipuncture Draw Fee 09:53:28 PANEL BEATER CPT-90839 Rapid Strep -(Floor Use Only) 14:32:02 CDT CPT-63434 Influenza (Floor Use Only) 15:34:29 PANEL BEATER CPT-72911 Rapid Strep -(Floor Use Only) 10:48:21 CDT CPT-34584 Venipuncture Draw Fee 10:48:21 CDT
--- OUTSIDE RECORDS SUMMARY | 2017-06-14 05:24 | XMS REPORT | Clinical Summary ---
Author Author Admin, MAGNOE Organization [facility] Address Unknown Phone Unavailable Allergies, Adverse [...] tablet by mouth four times daily CEPHALEXIN 42084570329 Active Christ PEDERSEN Active CLARITIN 10 MG TAB 1 tablet by mouth daily as needed for allergies LORATADINE 07881225577 No Longer Active Christ Kye PEDERSEN Active HYDROCORTISONE 1 % CREA apply 3 to 4 times per day HYDROCORTISONE 86366505427 No Longer Active Christ Kye PEDERSEN Active AZITHROMYCIN 500 MG TABS 1 tablet PO daily x 6 days AZITHROMYCIN 08679593708 No Longer Active Christ Kye PEDERSEN Active ZITHROMAX 250 MG TAB 2 po today, then 1 po q days 2-5 AZITHROMYCIN 07903190661 No Longer Active Christ Kye PA Active AMOXICILLIN 500 MG CAP 1 tab by mouth 3 times daily x 10 days AMOXICILLIN 78520032705 No Longer Active Christ Kye PEDERSEN Active GENTAMICIN SULFATE 0.3 % SOLN 3 gtt OU tid x 7 d GENTAMICIN SULFATE 17573147363 No Longer Active Sanket PEDERSEN Active AMOXICILLIN 500 MG TABS 2 PO bid x 7 d AMOXICILLIN 06624690074 No Longer Active Sanket PEDERSEN Active CLARITIN 10 MG CAPS 1qd LORATADINE 26534786154 No Longer Active Sanket PEDERSEN Active ZITHROMAX 250 MG TAB 2 po today, then 1 po q days 2-5 AZITHROMYCIN 73239381540 No Longer Active Christ Kye PEDERSEN Active AMOXICILLIN 500 MG CAP 1 tab by mouth 3 times daily x 10 days AMOXICILLIN 70854813003 No Longer Active Christ Kye PA Active AMOXICILLIN 500 MG CAP 1 tab by mouth 3 times daily x 10 days AMOXICILLIN 500 MG CAP 814512 AMOXICILLIN Inactive CLARITIN 10 MG CAPS 1qd CLARITIN 10 MG CAPS LORATADINE Inactive AMOXICILLIN 500 MG CAP 1 tab by mouth 3 times daily x 10 days AMOXICILLIN 500 MG CAP 382992 AMOXICILLIN Inactive AZITHROMYCIN 500 MG TABS 1 tablet PO daily x 6 days AZITHROMYCIN 500 MG TABS 6538298 AZITHROMYCIN Inactive HYDROCORTISONE 1 % CREA apply 3 to 4 times per day HYDROCORTISONE 1 % CREA 732718 HYDROCORTISONE Inactive CLARITIN 10 MG TAB 1 tablet by mouth daily as needed for allergies CLARITIN 10 MG TAB 887914 LORATADINE Inactive ZITHROMAX 250 MG TAB 2 po today, then 1 po q days 2-5 ZITHROMAX 250 MG TAB 8007314 AZITHROMYCIN Inactive AMOXICILLIN 500 MG TABS 2 PO bid x 7 d AMOXICILLIN 500 MG TABS 812085 AMOXICILLIN Inactive GENTAMICIN SULFATE 0.3 % SOLN 3 gtt OU tid x 7 d GENTAMICIN SULFATE 0.3 % SOLN 809361 GENTAMICIN SULFATE Inactive ZITHROMAX 250 MG TAB 2 po today, then 1 po q days 2-5 ZITHROMAX 250 MG TAB 3126982 AZITHROMYCIN Inactive Vital Signs Date Name Value [...] Catch Encounters Code Encounter Date Provider Facility CPT-72466 Level 4 Est. Patient 07:58:02 CDT Christ PEDERSEN [facility] CPT-44667 Level 3 New Patient 16:50:18 CDT Charla Hammond MD [facility] CPT-58180 Level 3 Est. Patient 07:06:47 CDT Christ PEDERSEN [facility] CPT-77103 Level 3 Est. Patient 13:03:14 CDT Christ PEDERSEN [facility] CPT-13751 Level 3 Est. Patient 09:44:05 CDT Sanket PEDERSEN [facility] CPT-27754 Level 3 New Patient 14:13:26 CDT Christ PEDERSEN [facility] CPT-67433 Level 3 New Patient 08:42:00 CDT Christ PEDERSEN [facility] CPT-37894 Level 3 Est. Patient 06:15:09 RECOVERY UNIT OPERATOR [facility]-95296 Level 3 Est. Patient 14:32:02 CDT Christ PEDERSEN [facility] CPT-08721 Level 3 Est. Patient 13:55:47 CDT Sanket PEDERSEN [facility] CPT-95483 Level 3 Est. Patient 07:36:37 RECOVERY UNIT OPERATOR Christ PEDERSEN [facility] CPT-94167 Level 3 Est. Patient 10:35:07 CDT Christ PEDERSEN [facility] Procedures Code Procedure Name Date Entry Date Standard Description CPT-06468 Venipuncture Draw Fee 16:02:00 CDT CPT-30309 Urine Dip (Floor Use Only) 16:50:18 CDT CPT-50040 Abd single AP View 09:49:22 CDT CPT-72459 Venipuncture Draw Fee 14:15:28 CDT CPT-76329 Rapid Strep -(Floor Use Only) 10:04:18 CDT CPT-80030 Venipuncture Draw Fee 10:04:18 CDT CPT-18135 Venipuncture Draw Fee 09:53:28 RECOVERY UNIT OPERATOR CPT-67549 Rapid Strep -(Floor Use Only) 14:32:02 CDT CPT-25758 Influenza (Floor Use Only) 15:34:29 RECOVERY UNIT OPERATOR CPT-09183 Rapid Strep -(Floor Use Only) 10:48:21 CDT CPT-82406 Venipuncture Draw Fee 10:48:21 CDT
--- OUTSIDE RECORDS SUMMARY | 2017-06-14 05:24 | XMS REPORT | Clinical Summary ---
Author Author Admin, E Organization [facility] Address Unknown Phone Unavailable Allergies, Adverse Reactions, Alerts Allergy Name Reaction Description Start Date Severity Status Provider No Known Allergies Anamaria Anderson LPN NKDA Critical Active Anamaria Andref SALES SERVICE ASSISTANT Conditions or Problems Problem Name Problem Code Onset Date Status Entry Date Provider Comment Standard Description Annotate FH BREAST CANCER V16.3 Active Anamaria Anderson LPN Family history of malignant neoplasm of breast PHARYNGITIS, ACUTE, SEVERE 462 Resolved Christ PEEDRSEN Acute pharyngitis UPPER RESPIRATORY INFECTION, ACUTE 465.9 [...] of unknown origin 780.60 Resolved Samantha Yokum MEDICAL RECORDS ADMINISTRATOR Fever, unspecified Acute pharyngitis 462 Resolved Samantha Yokum MEDICAL RECORDS ADMINISTRATOR Acute pharyngitis Upper respiratory infection 465.9 Resolved Samantha Yokum MEDICAL RECORDS ADMINISTRATOR Acute upper respiratory infections of unspecified site Allergic reaction 995.3 Resolved Samantha Yokum MEDICAL RECORDS ADMINISTRATOR Allergy, unspecified, not elsewhere classified Dysuria 788.1 Resolved Samantha Yokum MEDICAL RECORDS ADMINISTRATOR Dysuria Family history of renal disease V18.69 Active Christ PEDERSEN Family history of other kidney diseases Renal calculus, hx of V13.01 Active Christ PEDERSEN Personal history of urinary calculi Microscopic hematuria 599.72 Resolved Samantha Yokum MEDICAL RECORDS ADMINISTRATOR Microscopic hematuria Hematuria 599.70 Resolved Samantha Yokum MEDICAL RECORDS ADMINISTRATOR Hematuria, unspecified Muscle spasm 728.85 Resolved Samantha Yokum MEDICAL RECORDS ADMINISTRATOR Spasm of muscle Easy bruising 782.9 Resolved Samantha Yokum MEDICAL RECORDS ADMINISTRATOR Other symptoms involving skin and integumentary tissues Athletic physical, normal V70.3 Active Samantha Teresaum MEDICAL RECORDS ADMINISTRATOR Other general medical examination for administrative purposes Back spasm 724.8 Active Christ PEDERSEN Other symptoms referable to back Easy bruising 782.9 Active Christ PEDERSEN Other symptoms involving skin and integumentary tissues Otitis externa, acute, right 380.12 Active Jenae Arce MEDICAL RECORDS ADMINISTRATOR Acute swimmers' ear Depression with anxiety 300.4 Active Jennifer Mendez MEDICAL RECORDS ADMINISTRATOR Dysthymic disorder PHARYNGITIS, ACUTE, SEVERE ICD-462 Inactive Christ PEDERSEN UPPER RESPIRATORY INFECTION, ACUTE ICD-465.9 Inactive Christ PEDERSEN PHARYNGITIS ICD-462 Inactive Christ PEDERSEN CONJUNCTIVITIS ICD-372.30 Inactive Christ PEDERSEN Viral syndrome ICD-079.99 Inactive Christ PEDERSEN Hematuria ICD-599.70 Inactive Christ Fishman PA 09/15 UTI ICD-599.0 Inactive Christ PEDERSEN Fever of unknown origin ICD-780.60 Inactive Samantha Yokum MEDICAL RECORDS ADMINISTRATOR Acute pharyngitis ICD-462 Inactive Samantha Yokum MEDICAL RECORDS ADMINISTRATOR Upper respiratory infection ICD-465.9 Inactive Samantha Yokum MEDICAL RECORDS ADMINISTRATOR Allergic reaction ICD-995.3 Inactive Samantha Yokum MEDICAL RECORDS ADMINISTRATOR Dysuria ICD-788.1 Inactive Samantha Yokum MEDICAL RECORDS ADMINISTRATOR 02/08 Microscopic hematuria ICD-599.72 Inactive Samantha Yokum MEDICAL RECORDS ADMINISTRATOR Hematuria ICD-599.70 Inactive Samantha Yokum MEDICAL RECORDS ADMINISTRATOR Muscle spasm ICD-728.85 Inactive Samantha Yokum MEDICAL RECORDS ADMINISTRATOR Easy bruising ICD-782.9 Inactive Samantha Yokum MEDICAL RECORDS ADMINISTRATOR Medication List Medication Instructions Start Date Stop Date Generic Name NDC Status Provider Patient Instruction PAXIL 20 MG ORAL TABS 1 tab daily PAROXETINE HCL 72771822156 Active Soo Madl SALES SERVICE ASSISTANT Active CORTISPORIN 3.5-94126-1 SOLN 4gtts in affected ear QID x 7 days [id number] 17714248889 No Longer Active Soo Madl SALES SERVICE ASSISTANT Active CEPHALEXIN 500 MG CAPS 1 tablet by mouth four times daily CEPHALEXIN 40476783195 No Longer Active Christ Kye PA Active CLARITIN 10 MG TAB 1 tablet by mouth daily as needed for allergies LORATADINE 15153642817 No Longer Active Christ Harms PA Active HYDROCORTISONE 1 % CREA apply 3 to 4 times per day HYDROCORTISONE 43993739258 No Longer Active Christ Harms PA Active AZITHROMYCIN 500 MG TABS 1 tablet PO daily x 6 days AZITHROMYCIN 61503544285 No Longer Active Christ Harms PA Active ZITHROMAX 250 MG TAB 2 po today, then 1 po q days 2-5 AZITHROMYCIN 99312280341 No Longer Active Christ Harms PA Active AMOXICILLIN 500 MG CAP 1 tab by mouth 3 times daily x 10 days AMOXICILLIN 34674035774 No Longer Active Christ Harms PA Active GENTAMICIN SULFATE 0.3 % SOLN 3 gtt OU tid x 7 d GENTAMICIN SULFATE 63198875375 No Longer Active Sanket PEDERSEN Active AMOXICILLIN 500 MG TABS 2 PO bid x 7 d AMOXICILLIN 40611892643 No Longer Active Sanket PEDERSEN Active CLARITIN 10 MG CAPS 1qd LORATADINE 51798746906 No Longer Active Sanket PEDERSEN Active ZITHROMAX 250 MG TAB 2 po today, then 1 po q days 2-5 AZITHROMYCIN 37833266767 No Longer Active Christ Harms PA Active AMOXICILLIN 500 MG CAP 1 tab by mouth 3 times daily x 10 days AMOXICILLIN 20476414583 No Longer Active Christ Harms PA Active AMOXICILLIN 500 MG CAP 1 tab by mouth 3 times daily x 10 days AMOXICILLIN 500 MG CAP 861254 AMOXICILLIN Inactive CLARITIN 10 MG CAPS 1qd CLARITIN 10 MG CAPS 575239 LORATADINE Inactive AMOXICILLIN 500 MG CAP 1 tab by mouth 3 times daily x 10 days AMOXICILLIN 500 MG CAP 503157 AMOXICILLIN Inactive AZITHROMYCIN 500 MG TABS 1 tablet PO daily x 6 days AZITHROMYCIN 500 MG TABS 9347180 AZITHROMYCIN Inactive HYDROCORTISONE 1 % CREA apply 3 to 4 times per day HYDROCORTISONE 1 % CREA 736128 HYDROCORTISONE Inactive CLARITIN 10 MG TAB 1 tablet by mouth daily as needed for allergies CLARITIN 10 MG TAB 804605 LORATADINE Inactive CEPHALEXIN 500 MG CAPS 1 tablet by mouth four times daily CEPHALEXIN 500 MG CAPS 859847 CEPHALEXIN Inactive CORTISPORIN 3.5-18357-6 SOLN 4gtts in affected ear QID x 7 days CORTISPORIN 3.5-14412-0 SOLN 236183 [id number] Inactive ZITHROMAX 250 MG TAB 2 po today, then 1 po q days 2-5 ZITHROMAX 250 MG TAB 3276119 AZITHROMYCIN Inactive AMOXICILLIN 500 MG TABS 2 PO bid x 7 d AMOXICILLIN 500 MG TABS 503603 AMOXICILLIN Inactive GENTAMICIN SULFATE 0.3 % SOLN 3 gtt OU tid x 7 d GENTAMICIN SULFATE 0.3 % SOLN 641334 GENTAMICIN SULFATE Inactive ZITHROMAX 250 MG TAB 2 po today, then 1 po q days 2-5 ZITHROMAX 250 MG TAB 8202006 AZITHROMYCIN Inactive Vital Signs Date Name Value [...] Measured Encounters Code Encounter Date Provider Facility CPT-42080 Level 3 Est. Patient 15:12:20 CDT Jennifer Mendez [facility] CPT-05413 Level 3 Est. Patient 14:20:20 CDT Jenae Arce [facility] CPT-37646 Level 4 Est. Patient 07:31:22 CDT Christ Fishman [facility] CPT-61997 Level 3 Est. Patient 15:20:00 CDT Samantha Mccarthy [facility] CPT-02647 Level 3 Est. Patient 07:02:29 CDT Christ PEDERSEN [facility] CPT-57431 Level 4 Est. Patient 07:58:02 CDT Christ Fishman [facility] CPT-31158 Level 3 New Patient 16:50:18 CDT Charla Hammond MD [facility] CPT-51950 Level 3 Est. Patient 07:06:47 CDT Christ Fishman [facility] CPT-32920 Level 3 Est. Patient 13:03:14 CDT Christ PEDERSEN [facility] CPT-62040 Level 3 Est. Patient 09:44:05 CDT Sanket Angel [facility] CPT-60618 Level 3 New Patient 14:13:26 CDT Christ Fishman [facility] CPT-10670 Level 3 New Patient 08:42:00 CDT Christ Fishman [facility] CPT-21274 Level 3 Est. Patient 06:15:09 STRATEGIC PARTNERSHIP SPECIALIST Christ Fishman [facility] CPT-02559 Level 3 Est. Patient 14:32:02 CDT [facility] CPT-02765 Level 3 Est. Patient 13:55:47 CDT Sanket PEDERSEN [facility] CPT-45314 Level 3 Est. Patient 07:36:37 STRATEGIC PARTNERSHIP SPECIALIST Christ PEDERSEN [facility] CPT-10055 Level 3 Est. Patient 10:35:07 CDT Christ PEDERSEN [facility] Procedures Code Procedure Name Date Entry Date Standard Description CPT-10591 Venipuncture Draw Fee 16:34:16 CDT CPT-52367 Venipuncture Draw Fee 08:59:46 CDT CPT-33310 Venipuncture Draw Fee 16:02:00 CDT CPT-05085 Urine Dip (Floor Use Only) 16:50:18 CDT CPT-54274 Abd single AP View 09:49:22 CDT CPT-23954 Venipuncture Draw Fee 14:15:28 CDT CPT-67410 Rapid Strep -(Floor Use Only) 10:04:18 CDT CPT-57995 Venipuncture Draw Fee 10:04:18 CDT CPT-65989 Venipuncture Draw Fee 09:53:28 STRATEGIC PARTNERSHIP SPECIALIST CPT-08197 Rapid Strep -(Floor Use Only) 14:32:02 CDT CPT-81572 Influenza (Floor Use Only) 15:34:29 STRATEGIC PARTNERSHIP SPECIALIST CPT-46525 Rapid Strep -(Floor Use Only) 10:48:21 CDT CPT-39969 Venipuncture Draw Fee 10:48:21 CDT
--- OUTSIDE RECORDS SUMMARY | 2017-06-14 05:25 | XMS REPORT | Clinical Summary ---
[...] unknown origin 780.60 Resolved Samantha Yokum MEDICAL LANGUAGE SPECIALIST Fever, unspecified Acute pharyngitis 462 Resolved Samantha Yokum MEDICAL LANGUAGE SPECIALIST Acute pharyngitis Upper respiratory infection 465.9 Resolved Samantha Yokum MEDICAL LANGUAGE SPECIALIST Acute upper respiratory infections of unspecified site Allergic reaction 995.3 Resolved Samantha Yokum MEDICAL LANGUAGE SPECIALIST Allergy, unspecified, not elsewhere classified Dysuria 788.1 Resolved Samantha Yokum MEDICAL LANGUAGE SPECIALIST Dysuria Family history of renal disease V18.69 Active Christ PEDERSEN Family history of other kidney diseases Renal calculus, hx of V13.01 Resolved Jennifer Mendez APRN Personal history of urinary calculi Microscopic hematuria 599.72 Resolved Samantha Yokum MEDICAL LANGUAGE SPECIALIST Microscopic hematuria Hematuria 599.70 Resolved Samantha Yokum MEDICAL LANGUAGE SPECIALIST Hematuria, unspecified Muscle spasm 728.85 Resolved Samantha Yokum MEDICAL LANGUAGE SPECIALIST Spasm of muscle Easy bruising 782.9 Resolved Samantha Yokum MEDICAL LANGUAGE SPECIALIST Other symptoms involving skin and integumentary tissues Athletic physical, normal V70.3 Active Samantha Fabio ARTN Other general medical examination for administrative purposes Back spasm 724.8 Active Christ PEDERSEN Other symptoms referable to back Easy bruising 782.9 Active Christ PEDERSEN Other symptoms involving skin and integumentary tissues Otitis externa, acute, right 380.12 Active Jenae Arce MEDICAL LANGUAGE SPECIALIST Acute swimmers' ear Depression with anxiety 300.4 [...] unknown origin ICD-780.60 Inactive Samantha Yokum MEDICAL LANGUAGE SPECIALIST Acute pharyngitis ICD-462 Inactive Samantha Yokum MEDICAL LANGUAGE SPECIALIST Upper respiratory infection ICD-465.9 Inactive Samantha Yokum MEDICAL LANGUAGE SPECIALIST Allergic reaction ICD-995.3 Inactive Samantha Yokum MEDICAL LANGUAGE SPECIALIST Dysuria ICD-788.1 Inactive Samantha Yokum MEDICAL LANGUAGE SPECIALIST 02/08 Renal calculus, hx of ICD-V13.01 Inactive Jennifer Mendez MEDICAL LANGUAGE SPECIALIST Microscopic hematuria ICD-599.72 Inactive Samantha Yokum MEDICAL LANGUAGE SPECIALIST Hematuria ICD-599.70 Inactive Samantha Yokum MEDICAL LANGUAGE SPECIALIST Muscle spasm ICD-728.85 Inactive Samantha Yokum MEDICAL LANGUAGE SPECIALIST Easy bruising ICD-782.9 Inactive Samantha Yokum MEDICAL LANGUAGE SPECIALIST Medication List Medication Instructions Start Date Stop Date Generic Name NDC Status Provider Patient Instruction BACTRIM DS 800-160 MG TABS 1 twice a day SULFAMETHOXAZOLE- TRIMETHOPRIM 11188414148 Active Soo Madl FAMILY HEALTH NURSE PRACTITIONER Active PAXIL 20 MG ORAL TABS 1 tab daily PAROXETINE HCL 84590554410 Active Soo Martell FAMILY HEALTH NURSE PRACTITIONER Active CORTISPORIN 3.5-22972-0 SOLN 4gtts in affected ear QID x 7 days [id number] 16962839354 No Longer Active Soo Madl FAMILY HEALTH NURSE PRACTITIONER Active CEPHALEXIN 500 MG CAPS 1 tablet by mouth four times daily CEPHALEXIN 95492826329 No Longer Active Christ Harms PA Active CLARITIN 10 MG TAB 1 tablet by mouth daily as needed for allergies LORATADINE 20399954934 No Longer Active Christ Harms PA Active HYDROCORTISONE 1 % CREA apply 3 to 4 times per day HYDROCORTISONE 51119856219 No Longer Active Christ Harms PA Active AZITHROMYCIN 500 MG TABS 1 tablet PO daily x 6 days AZITHROMYCIN 26346105014 No Longer Active Christ Harms PA Active ZITHROMAX 250 MG TAB 2 po today, then 1 po q days 2-5 AZITHROMYCIN 46646452003 No Longer Active Christ Harms PA Active AMOXICILLIN 500 MG CAP 1 tab by mouth 3 times daily x 10 days AMOXICILLIN 71211585145 No Longer Active Christ Harms PA Active GENTAMICIN SULFATE 0.3 % SOLN 3 gtt OU tid x 7 d GENTAMICIN SULFATE 93351762395 No Longer Active Sanket PEDERSEN Active AMOXICILLIN 500 MG TABS 2 PO bid x 7 d AMOXICILLIN 27609970363 No Longer Active Sanket PEDERSEN Active CLARITIN 10 MG CAPS 1qd LORATADINE 44416564697 No Longer Active Sanket Angel PA Active ZITHROMAX 250 MG TAB 2 po today, then 1 po q days 2-5 AZITHROMYCIN 56282910570 No Longer Active Christ Harms PA Active AMOXICILLIN 500 MG CAP 1 tab by mouth 3 times daily x 10 days AMOXICILLIN 78082216115 No Longer Active Christ Harms PA Active AMOXICILLIN 500 MG CAP 1 tab by mouth 3 times daily x 10 days AMOXICILLIN 500 MG CAP 701546 AMOXICILLIN Inactive CLARITIN 10 MG CAPS 1qd CLARITIN 10 MG CAPS 872315 LORATADINE Inactive AMOXICILLIN 500 MG CAP 1 tab by mouth 3 times daily x 10 days AMOXICILLIN 500 MG CAP 633932 AMOXICILLIN Inactive AZITHROMYCIN 500 MG TABS 1 tablet PO daily x 6 days AZITHROMYCIN 500 MG TABS 5832903 AZITHROMYCIN Inactive HYDROCORTISONE 1 % CREA apply 3 to 4 times per day HYDROCORTISONE 1 % CREA 856585 HYDROCORTISONE Inactive CLARITIN 10 MG TAB 1 tablet by mouth daily as needed for allergies CLARITIN 10 MG TAB 302234 LORATADINE Inactive CEPHALEXIN 500 MG CAPS 1 tablet by mouth four times daily CEPHALEXIN 500 MG CAPS 548976 CEPHALEXIN Inactive CORTISPORIN 3.5-86745-0 SOLN 4gtts in affected ear QID x 7 days CORTISPORIN 3.5-68809-1 SOLN 027629 [id number]-[id number]-MT Inactive ZITHROMAX 250 MG TAB 2 po today, then 1 po q days 2-5 ZITHROMAX 250 MG TAB 2813741 AZITHROMYCIN Inactive AMOXICILLIN 500 MG TABS 2 PO bid x 7 d AMOXICILLIN 500 MG TABS 301670 AMOXICILLIN Inactive GENTAMICIN SULFATE 0.3 % SOLN 3 gtt OU tid x 7 d GENTAMICIN SULFATE 0.3 % SOLN 318559 GENTAMICIN SULFATE Inactive ZITHROMAX 250 MG TAB 2 po today, then 1 po q days 2-5 ZITHROMAX 250 MG TAB 1795718 AZITHROMYCIN Inactive Vital Signs Date Name Value [...] Measured Encounters Code Encounter Date Provider Facility CPT-44625 Level 3 Est. Patient 10:58:20 CDT Jennifer Mendez [facility] CPT-43736 Level 3 Est. Patient 15:12:20 CDT Jennifer Mendez [facility] CPT-84052 Level 3 Est. Patient 14:20:20 CDT Jenae Arce [facility] CPT-69338 Level 4 Est. Patient 07:31:22 CDT Christ Fishman [facility] CPT-08059 Level 3 Est. Patient 15:20:00 CDT Samantha Mccarthy [facility] CPT-28576 Level 3 Est. Patient 07:02:29 CDT Christ PEDERSEN [facility] CPT-94131 Level 4 Est. Patient 07:58:02 CDT Christ PEDERSEN [facility] CPT-72977 Level 3 New Patient 16:50:18 CDT Charla Hammond MD [facility] CPT-18481 Level 3 Est. Patient 07:06:47 CDT Christ PEDERSEN [facility] CPT-23729 Level 3 Est. Patient 13:03:14 CDT Christ PEDERSEN [facility] CPT-35084 Level 3 Est. Patient 09:44:05 CDT Sanket Angel [facility] CPT-35254 Level 3 New Patient 14:13:26 CDT Christ PEDERSEN [facility] CPT-08790 Level 3 New Patient 08:42:00 CDT Christ PEDERSEN [facility] CPT-56183 Level 3 Est. Patient 06:15:09 DANCE HISTORIAN Christ PEDERSEN [facility] CPT-99924 Level 3 Est. Patient 14:32:02 CDT Christ PEDERSEN [facility] CPT-64437 Level 3 Est. Patient 13:55:47 CDT Sanket Angel [facility] CPT-70083 Level 3 Est. Patient 07:36:37 DANCE HISTORIAN Christ PEDERSEN [facility] CPT-80474 Level 3 Est. Patient 10:35:[address] [facility] [facility] Procedures Code Procedure Name Date Entry Date Standard Description CPT-36289 Abd compl w upright - XRAY USE ONLY 11:08:53 CDT 01/11 CPT-71572 Venipuncture Draw Fee 16:34:16 CDT CPT-48355 Venipuncture Draw Fee 08:59:46 CDT CPT-87857 Venipuncture Draw Fee 16:02:00 CDT CPT-89964 Urine Dip (Floor Use Only) 16:50:18 CDT CPT-79644 Abd single AP View 09:49:22 CDT CPT-30439 Venipuncture Draw Fee 14:15:28 CDT CPT-73368 Rapid Strep -(Floor Use Only) 10:04:18 CDT CPT-38896 Venipuncture Draw Fee 10:04:18 CDT CPT-24958 Venipuncture Draw Fee 09:53:28 DANCE HISTORIAN CPT-02700 Rapid Strep -(Floor Use Only) 14:32:02 CDT CPT-34131 Influenza (Floor Use Only) 15:34:29 DANCE HISTORIAN CPT-14081 Rapid Strep -(Floor Use Only) 10:48:21 CDT CPT-02971 Venipuncture Draw Fee 10:48:21 CDT
--- OUTSIDE RECORDS SUMMARY | 2017-06-14 05:25 | XMS REPORT | Clinical Summary ---
Author Author Admin, E Organization [facility] [place] Address Unknown Phone Unavailable Allergies, Adverse Reactions, Alerts Allergy Name Reaction Description Start Date Severity Status Provider No Known Allergies Anamaria Anderson LPN NKDA Critical Active Anamaria Andref WINDOW SHADE RING COVERER Conditions or Problems Problem Name Problem Code [...] of unknown origin 780.60 Resolved Samantha Yokum GAS GENERATOR OPERATOR Fever, unspecified Acute pharyngitis 462 Resolved Samantha Yokum GAS GENERATOR OPERATOR Acute pharyngitis Upper respiratory infection 465.9 Resolved Samantha Yokum GAS GENERATOR OPERATOR Acute upper respiratory infections of unspecified site Allergic reaction 995.3 Resolved Samantha Yokum GAS GENERATOR OPERATOR Allergy, unspecified, not elsewhere classified Dysuria 788.1 Resolved Samantha Yokum GAS GENERATOR OPERATOR Dysuria Family history of renal disease V18.69 Active Christ PEDERSEN Family history of other kidney diseases Renal calculus, hx of V13.01 Resolved Jennifer Mendez APRN Personal history of urinary calculi Microscopic hematuria 599.72 Resolved Samantha Yokum GAS GENERATOR OPERATOR Microscopic hematuria Hematuria 599.70 Resolved Samantha Yokum GAS GENERATOR OPERATOR Hematuria, unspecified Muscle spasm 728.85 Resolved Samantha Yokum GAS GENERATOR OPERATOR Spasm of muscle Easy bruising 782.9 Resolved Samantha Yokum GAS GENERATOR OPERATOR Other symptoms involving skin and integumentary tissues Athletic physical, normal V70.3 Active Samantha Fabio ARTN Other general medical examination for administrative purposes Back spasm 724.8 Active Christ PEDERSEN Other symptoms referable to back Easy bruising 782.9 Active Christ PEDERSEN Other symptoms involving skin and integumentary tissues Otitis externa, acute, right 380.12 Active Jenae Arce GAS GENERATOR OPERATOR Acute swimmers' ear Depression with anxiety 300.4 [...] Inactive Christ Harms PA PHARYNGITIS ICD-462 Inactive Chirst Harms PA CONJUNCTIVITIS ICD-372.30 Inactive Christ Harms PA Viral syndrome ICD-079.99 Inactive Christ Harms PA Hematuria ICD-599.70 Inactive Christ Harms PA 09/15 UTI ICD-599.0 Inactive Christ Harms PA Fever of unknown origin ICD-780.60 Inactive Samantha Yokum GAS GENERATOR OPERATOR Acute pharyngitis ICD-462 Inactive Samantha Yokum GAS GENERATOR OPERATOR Upper respiratory infection ICD-465.9 Inactive Samantha Yokum GAS GENERATOR OPERATOR Allergic reaction ICD-995.3 Inactive Samantha Yokum GAS GENERATOR OPERATOR Dysuria ICD-788.1 Inactive Samantha Yokum GAS GENERATOR OPERATOR 02/08 Renal calculus, hx of ICD-V13.01 Inactive Jennifer Mendez GAS GENERATOR OPERATOR Microscopic hematuria ICD-599.72 Inactive Samantha Yokum GAS GENERATOR OPERATOR Hematuria ICD-599.70 Inactive Samantha Yokum GAS GENERATOR OPERATOR Muscle spasm ICD-728.85 Inactive Samantha Yokum GAS GENERATOR OPERATOR Easy bruising ICD-782.9 Inactive Samantha Yokum GAS GENERATOR OPERATOR Medication List Medication Instructions Start Date Stop Date Generic Name NDC Status Provider Patient Instruction PAXIL 20 MG ORAL TABS 1 tab daily PAROXETINE HCL 33845075838 Active Soo Martell WINDOW SHADE RING COVERER Active CORTISPORIN 3.5-78956-6 SOLN 4gtts in affected ear QID x 7 days [id number] 87871643587 No Longer Active Soo Martell WINDOW SHADE RING COVERER Active CEPHALEXIN 500 MG CAPS 1 tablet by mouth four times daily CEPHALEXIN 49936666279 No Longer Active Christ Harms PA Active CLARITIN 10 MG TAB 1 tablet by mouth daily as needed for allergies LORATADINE 81836425717 No Longer Active Christ Harms PA Active HYDROCORTISONE 1 % CREA apply 3 to 4 times per day HYDROCORTISONE 18946962193 No Longer Active Christ Harms PA Active AZITHROMYCIN 500 MG TABS 1 tablet PO daily x 6 days AZITHROMYCIN 29052725941 No Longer Active Christ Harms PA Active ZITHROMAX 250 MG TAB 2 po today, then 1 po q days 2-5 AZITHROMYCIN 65448564571 No Longer Active Christ Harms PA Active AMOXICILLIN 500 MG CAP 1 tab by mouth 3 times daily x 10 days AMOXICILLIN 52603342194 No Longer Active Christ Harms PA Active GENTAMICIN SULFATE 0.3 % SOLN 3 gtt OU tid x 7 d GENTAMICIN SULFATE 39749105394 No Longer Active Sanket PEDERSEN Active AMOXICILLIN 500 MG TABS 2 PO bid x 7 d AMOXICILLIN 61287232223 No Longer Active Sanket Angel PA Active CLARITIN 10 MG CAPS 1qd LORATADINE 22309927871 No Longer Active Sanket PEDERSEN Active ZITHROMAX 250 MG TAB 2 po today, then 1 po q days 2-5 AZITHROMYCIN 13366266669 No Longer Active Christ Harms PA Active AMOXICILLIN 500 MG CAP 1 tab by mouth 3 times daily x 10 days AMOXICILLIN 67130212122 No Longer Active Christ Harms PA Active AMOXICILLIN 500 MG CAP 1 tab by mouth 3 times daily x 10 days AMOXICILLIN 500 MG CAP 877211 AMOXICILLIN Inactive CLARITIN 10 MG CAPS 1qd CLARITIN 10 MG CAPS 571701 LORATADINE Inactive AMOXICILLIN 500 MG CAP 1 tab by mouth 3 times daily x 10 days AMOXICILLIN 500 MG CAP 126314 AMOXICILLIN Inactive AZITHROMYCIN 500 MG TABS 1 tablet PO daily x 6 days AZITHROMYCIN 500 MG TABS 7793662 AZITHROMYCIN Inactive HYDROCORTISONE 1 % CREA apply 3 to 4 times per day HYDROCORTISONE 1 % CREA 430262 HYDROCORTISONE Inactive CLARITIN 10 MG TAB 1 tablet by mouth daily as needed for allergies CLARITIN 10 MG TAB 994843 LORATADINE Inactive CEPHALEXIN 500 MG CAPS 1 tablet by mouth four times daily CEPHALEXIN 500 MG CAPS 858580 CEPHALEXIN Inactive CORTISPORIN 3.5-91488-6 SOLN 4gtts in affected ear QID x 7 days CORTISPORIN 3.5-02789-3 SOLN 324410 [id number] Inactive ZITHROMAX 250 MG TAB 2 po today, then 1 po q days 2-5 ZITHROMAX 250 MG TAB 8802770 AZITHROMYCIN Inactive AMOXICILLIN 500 MG TABS 2 PO bid x 7 d AMOXICILLIN 500 MG TABS 759872 AMOXICILLIN Inactive GENTAMICIN SULFATE 0.3 % SOLN 3 gtt OU tid x 7 d GENTAMICIN SULFATE 0.3 % SOLN 544752 GENTAMICIN SULFATE Inactive ZITHROMAX 250 MG TAB 2 po today, then 1 po q days 2-5 ZITHROMAX 250 MG TAB 2238385 AZITHROMYCIN Inactive Vital Signs Date Name Value [...] Measured Encounters Code Encounter Date Provider Facility CPT-83060 Level 3 Est. Patient 10:58:20 CDT Jennifer Mendez [facility] CPT-75264 Level 3 Est. Patient 15:12:20 CDT Jennifer Mendez [facility] CPT-95094 Level 3 Est. Patient 14:20:20 CDT Jenae Arce [facility] CPT-14568 Level 4 Est. Patient 07:31:22 CDT Christ PEDERSEN [facility] [place] CPT-14518 Level 3 Est. Patient 15:20:00 CDT Samantha Mccarthy [facility] CPT-73999 Level 3 Est. Patient 07:02:29 CDT Christ PEDERSEN [facility] [place] CPT-93680 Level 4 Est. Patient 07:58:02 CDT Christ PEDERSEN [facility] CPT-04659 Level 3 New Patient 16:50:18 CDT Charla Hammond MD [facility] CPT-78648 Level 3 Est. Patient 07:06:47 CDT Christ PEDERSEN [facility] CPT-83810 Level 3 Est. Patient 13:03:14 CDT Christ PEDERSEN [facility] CPT-26445 Level 3 Est. Patient 09:44:05 CDT Sanket Angel [facility] CPT-85457 Level 3 New Patient 14:13:26 CDT Christ PEDERSEN [facility] CPT-40869 Level 3 New Patient 08:42:00 CDT Christ PEDERSEN [facility] [place] CPT-56848 Level 3 Est. Patient 06:15:09 MANAGER STRATEGY Christ PEDERSEN [facility] [place] CPT-40752 Level 3 Est. Patient 14:32:02 CDT Christ PEDERSEN [facility] CPT-64392 Level 3 Est. Patient 13:55:47 CDT Sanket Angel [facility] CPT-94624 Level 3 Est. Patient 07:36:37 MANAGER STRATEGY Christ PEDERSEN [facility] CPT-11870 Level 3 Est. Patient 10:35:07 CDT Christ PEDERSEN [facility] [place] Procedures Code Procedure Name Date Entry Date Standard Description CPT-72065 Abd compl w upright - XRAY USE ONLY 11:08:53 CDT 01/11 CPT-65212 Venipuncture Draw Fee 16:34:16 CDT CPT-93160 Venipuncture Draw Fee 08:59:46 CDT CPT-99779 Venipuncture Draw Fee 16:02:00 CDT CPT-71704 Urine Dip (Floor Use Only) 16:50:18 CDT CPT-84604 Abd single AP View 09:49:22 CDT CPT-03206 Venipuncture Draw Fee 14:15:28 CDT CPT-61857 Rapid Strep -(Floor Use Only) 10:04:18 CDT CPT-71592 Venipuncture Draw Fee 10:04:18 CDT CPT-12242 Venipuncture Draw Fee 09:53:28 MANAGER STRATEGY CPT-90482 Rapid Strep -(Floor Use Only) 14:32:02 CDT CPT-26489 Influenza (Floor Use Only) 15:34:29 MANAGER STRATEGY CPT-55655 Rapid Strep -(Floor Use Only) 10:48:21 CDT CPT-60354 Venipuncture Draw Fee 10:48:21 CDT
--- OUTSIDE RECORDS SUMMARY | 2017-06-14 05:26 | XMS REPORT | Clinical Summary ---
Author Author Admin, LUISITO Organization [facility] Address Unknown Phone Unavailable Allergies, Adverse Reactions, Alerts Allergy Name Reaction Description Start Date Severity Status Provider No Known Allergies Anamaria Anderson LPN NKDA Critical Active Anamaria Anderson MANAGER PEDIATRIC Conditions or Problems Problem Name Problem Code [...] of unknown origin 780.60 Resolved Samantha Yokum CORRUGATED FASTENER DRIVER Fever, unspecified Acute pharyngitis 462 Resolved Samantha Yokum CORRUGATED FASTENER DRIVER Acute pharyngitis Upper respiratory infection 465.9 Resolved Samantha Yokum CORRUGATED FASTENER DRIVER Acute upper respiratory infections of unspecified site Allergic reaction 995.3 Resolved Samantha Yokum CORRUGATED FASTENER DRIVER Allergy, unspecified, not elsewhere classified Dysuria 788.1 Resolved Samantha Yokum CORRUGATED FASTENER DRIVER Dysuria Family history of renal disease V18.69 Active Christ PEDERSEN Family history of other kidney diseases Renal calculus, hx of V13.01 Resolved Jennifer Mendez APRN Personal history of urinary calculi Microscopic hematuria 599.72 Resolved Samantha Yokum CORRUGATED FASTENER DRIVER Microscopic hematuria Hematuria 599.70 Resolved Samantha Yokum CORRUGATED FASTENER DRIVER Hematuria, unspecified Muscle spasm 728.85 Resolved Samantha Yokum CORRUGATED FASTENER DRIVER Spasm of muscle Easy bruising 782.9 Resolved Samantha Yokum CORRUGATED FASTENER DRIVER Other symptoms involving skin and integumentary tissues Athletic physical, normal V70.3 Active Samantha Fabio ARTN Other general medical examination for administrative purposes Back spasm 724.8 Active Christ PEDERSEN Other symptoms referable to back Easy bruising 782.9 Active Christ PEDERSEN Other symptoms involving skin and integumentary tissues Otitis externa, acute, right 380.12 Active Jenae Arce CORRUGATED FASTENER DRIVER Acute swimmers' ear Depression with anxiety 300.4 [...] of unknown origin ICD-780.60 Inactive Samantha Yokum CORRUGATED FASTENER DRIVER Acute pharyngitis ICD-462 Inactive Samantha Yokum CORRUGATED FASTENER DRIVER Upper respiratory infection ICD-465.9 Inactive Samantha Yokum CORRUGATED FASTENER DRIVER Allergic reaction ICD-995.3 Inactive Samantha Yokum CORRUGATED FASTENER DRIVER Dysuria ICD-788.1 Inactive Samantha Yokum CORRUGATED FASTENER DRIVER 02/08 Renal calculus, hx of ICD-V13.01 Inactive Jennifer Mendez CORRUGATED FASTENER DRIVER Microscopic hematuria ICD-599.72 Inactive Samantha Yokum CORRUGATED FASTENER DRIVER Hematuria ICD-599.70 Inactive Samantha Yokum CORRUGATED FASTENER DRIVER Muscle spasm ICD-728.85 Inactive Samantha Yokum CORRUGATED FASTENER DRIVER Easy bruising ICD-782.9 Inactive Samantha Yokum CORRUGATED FASTENER DRIVER Medication List Medication Instructions Start Date Stop Date Generic Name NDC Status Provider Patient Instruction BACTRIM DS 800-160 MG TABS 1 twice a day SULFAMETHOXAZOLE- TRIMETHOPRIM [id number] Active Soo Madl MANAGER PEDIATRIC Active PAXIL 20 MG ORAL TABS 1 tab daily PAROXETINE HCL 19276923822 Active Soo Martell MANAGER PEDIATRIC Active CORTISPORIN 3.5-70247-2 SOLN 4gtts in affected ear QID x 7 days [id number] 44277473826 No Longer Active Soo Madl MANAGER PEDIATRIC Active CEPHALEXIN 500 MG CAPS 1 tablet by mouth four times daily CEPHALEXIN 25332819670 No Longer Active Christ Harms PA Active CLARITIN 10 MG TAB 1 tablet by mouth daily as needed for allergies LORATADINE 02700307414 No Longer Active Christ Harms PA Active HYDROCORTISONE 1 % CREA apply 3 to 4 times per day HYDROCORTISONE 63866027344 No Longer Active Christ Harms PA Active AZITHROMYCIN 500 MG TABS 1 tablet PO daily x 6 days AZITHROMYCIN 94877912578 No Longer Active Christ Harms PA Active ZITHROMAX 250 MG TAB 2 po today, then 1 po q days 2-5 AZITHROMYCIN 16318483888 No Longer Active Christ Harms PA Active AMOXICILLIN 500 MG CAP 1 tab by mouth 3 times daily x 10 days AMOXICILLIN 95218370956 No Longer Active Christ Harms PA Active GENTAMICIN SULFATE 0.3 % SOLN 3 gtt OU tid x 7 d GENTAMICIN SULFATE 09025750765 No Longer Active Sanket PEDERSEN Active AMOXICILLIN 500 MG TABS 2 PO bid x 7 d AMOXICILLIN 36669099397 No Longer Active Sanket PEDERSEN Active CLARITIN 10 MG CAPS 1qd LORATADINE 13371425906 No Longer Active Sanket Angel PA Active ZITHROMAX 250 MG TAB 2 po today, then 1 po q days 2-5 AZITHROMYCIN 81157485880 No Longer Active Christ Harms PA Active AMOXICILLIN 500 MG CAP 1 tab by mouth 3 times daily x 10 days AMOXICILLIN 73873249312 No Longer Active Christ Harms PA Active AMOXICILLIN 500 MG CAP 1 tab by mouth 3 times daily x 10 days AMOXICILLIN 500 MG CAP 611890 AMOXICILLIN Inactive CLARITIN 10 MG CAPS 1qd CLARITIN 10 MG CAPS 459461 LORATADINE Inactive AMOXICILLIN 500 MG CAP 1 tab by mouth 3 times daily x 10 days AMOXICILLIN 500 MG CAP 336376 AMOXICILLIN Inactive AZITHROMYCIN 500 MG TABS 1 tablet PO daily x 6 days AZITHROMYCIN 500 MG TABS 2166537 AZITHROMYCIN Inactive HYDROCORTISONE 1 % CREA apply 3 to 4 times per day HYDROCORTISONE 1 % CREA 991980 HYDROCORTISONE Inactive CLARITIN 10 MG TAB 1 tablet by mouth daily as needed for allergies CLARITIN 10 MG TAB 340416 LORATADINE Inactive CEPHALEXIN 500 MG CAPS 1 tablet by mouth four times daily CEPHALEXIN 500 MG CAPS 427627 CEPHALEXIN Inactive CORTISPORIN 3.5-75956-3 SOLN 4gtts in affected ear QID x 7 days CORTISPORIN 3.5-93024-9 SOLN 677330 [id number] Inactive ZITHROMAX 250 MG TAB 2 po today, then 1 po q days 2-5 ZITHROMAX 250 MG TAB 9727404 AZITHROMYCIN Inactive AMOXICILLIN 500 MG TABS 2 PO bid x 7 d AMOXICILLIN 500 MG TABS 154893 AMOXICILLIN Inactive GENTAMICIN SULFATE 0.3 % SOLN 3 gtt OU tid x 7 d GENTAMICIN SULFATE 0.3 % SOLN 757833 GENTAMICIN SULFATE Inactive ZITHROMAX 250 MG TAB 2 po today, then 1 po q days 2-5 ZITHROMAX 250 MG TAB 6781759 AZITHROMYCIN Inactive Vital Signs Date Name Value [...] Measured Encounters Code Encounter Date Provider Facility CPT-54789 Level 3 Est. Patient 10:58:20 CDT Jennifer Mendez [facility] CPT-78709 Level 3 Est. Patient 15:12:20 CDT Jennifer Mendez [facility] CPT-90328 Level 3 Est. Patient 14:20:20 CDT Jenae Arce [facility] CPT-67281 Level 4 Est. Patient 07:31:22 CDT Christ PEDERSEN [facility] CPT-22989 Level 3 Est. Patient 15:20:00 CDT Samantha Mccarthy [facility] [place] [facility] CPT-62330 Level 3 Est. Patient 07:02:29 CDT Christ PEDERSEN [facility] CPT-27003 Level 4 Est. Patient 07:58:02 CDT Christ PEDERSEN [facility] CPT-59396 Level 3 New Patient 16:50:18 CDT Charla Hammond MD [facility] CPT-83990 Level 3 Est. Patient 07:06:47 CDT Christ PEDERSEN [facility] CPT-30558 Level 3 Est. Patient 13:03:14 CDT Christ PEDERSEN [facility] CPT-14254 Level 3 Est. Patient 09:44:05 CDT Sanket Angel [facility] CPT-87396 Level 3 New Patient 14:13:26 CDT Christ Fishman NUVIA [facility] CPT-12620 Level 3 New Patient 08:42:00 CDT Christ Kye NUVIA [facility] CPT-90721 Level 3 Est. Patient 06:15:09 SCHOOL BUS DRIVER/CUSTODIAN Christ Fishman [facility] CPT-41777 Level 3 Est. Patient 14:32:02 CDT Christ Fishman NUVIA [facility] CPT-50252 Level 3 Est. Patient 13:55:47 CDT Sanket Angel [facility] CPT-32126 Level 3 Est. Patient 07:36:37 SCHOOL BUS DRIVER/CUSTODIAN Christ Kye NUVIA [facility] CPT-10678 Level 3 Est. Patient 10:35:07 CDT Christ Fishman [facility] Procedures Code Procedure Name Date Entry Date Standard Description CPT-96176 Abd compl w upright - XRAY USE ONLY 11:08:53 CDT 01/11 CPT-79078 Venipuncture Draw Fee 16:34:16 CDT CPT-68592 Venipuncture Draw Fee 08:59:46 CDT CPT-43084 Venipuncture Draw Fee 16:02:00 CDT CPT-79461 Urine Dip (Floor Use Only) 16:50:18 CDT CPT-87609 Abd single AP View 09:49:22 CDT CPT-48432 Venipuncture Draw Fee 14:15:28 CDT CPT-99344 Rapid Strep -(Floor Use Only) 10:04:18 CDT CPT-66229 Venipuncture Draw Fee 10:04:18 CDT CPT-23522 Venipuncture Draw Fee 09:53:28 SCHOOL BUS DRIVER/CUSTODIAN CPT-96680 Rapid Strep -(Floor Use Only) 14:32:02 CDT CPT-03448 Influenza (Floor Use Only) 15:34:29 SCHOOL BUS DRIVER/CUSTODIAN CPT-01287 Rapid Strep -(Floor Use Only) 10:48:21 CDT CPT-74123 Venipuncture Draw Fee 10:48:21 CDT
--- OUTSIDE RECORDS SUMMARY | 2017-06-14 05:26 | XMS REPORT | Clinical Summary ---
Author Author Admin, LUISITO Organization [facility] Address Unknown Phone Unavailable Allergies, [...] of unknown origin 780.60 Resolved Samantha Yokum LAMP SHADE JOINER Fever, unspecified Acute pharyngitis 462 Resolved Samantha Yokum LAMP SHADE JOINER Acute pharyngitis Upper respiratory infection 465.9 Resolved Samantha Yokum LAMP SHADE JOINER Acute upper respiratory infections of unspecified site Allergic reaction 995.3 Resolved Samantha Yokum LAMP SHADE JOINER Allergy, unspecified, not elsewhere classified Dysuria 788.1 Resolved Samantha Yokum LAMP SHADE JOINER Dysuria Family history of renal disease V18.69 Active Christ PEDERSEN Family history of other kidney diseases Renal calculus, hx of V13.01 Active Christ PEDERSEN Personal history of urinary calculi Microscopic hematuria 599.72 Resolved Samantha Yokum LAMP SHADE JOINER Microscopic hematuria Hematuria 599.70 Resolved Samantha Yokum LAMP SHADE JOINER Hematuria, unspecified Muscle spasm 728.85 Resolved Samantha Yokum LAMP SHADE JOINER Spasm of muscle Easy bruising 782.9 Resolved Samantha Yokum LAMP SHADE JOINER Other symptoms involving skin and integumentary tissues Athletic physical, normal V70.3 Active Samantha Yokum LAMP SHADE JOINER Other general medical examination for administrative purposes PHARYNGITIS, ACUTE, SEVERE ICD-462 Inactive Christ PEDERSEN UPPER RESPIRATORY INFECTION, ACUTE ICD-465.9 Inactive Christ PEDERSEN PHARYNGITIS ICD-462 Inactive Christ PEDERSEN CONJUNCTIVITIS ICD-372.30 Inactive Christ PEDERSEN Viral syndrome ICD-079.99 Inactive Christ PEDERSEN Hematuria ICD-599.70 Inactive Christ PEDERSEN 09/15 UTI ICD-599.0 Inactive Christ PEDERSEN Fever of unknown origin ICD-780.60 Inactive Samantha Yokum LAMP SHADE JOINER Acute pharyngitis ICD-462 Inactive Samantha Yokum LAMP SHADE JOINER Upper respiratory infection ICD-465.9 Inactive Samantha Mccarthy LAMP SHADE JOINER Allergic reaction ICD-995.3 Inactive Samantha Fabio LAMP SHADE JOINER Dysuria ICD-788.1 Inactive Samanthajennifer Mccarthy LAMP SHADE JOINER 02/08 Microscopic hematuria ICD-599.72 Inactive Samantha Fabio LAMP SHADE JOINER Hematuria ICD-599.70 Inactive Samanthajennifer Mccarthy LAMP SHADE JOINER Muscle spasm ICD-728.85 Inactive Samantha Mccarthy LAMP SHADE JOINER Easy bruising ICD-782.9 Inactive Samantha Mccarthy LAMP SHADE JOINER Medication List Medication Instructions Start Date Stop Date Generic Name NDC Status Provider Patient Instruction CEPHALEXIN 500 MG CAPS 1 tablet by mouth four times daily CEPHALEXIN 66041235756 No Longer Active Christ Harms PA Active CLARITIN 10 MG TAB 1 tablet by mouth daily as needed for allergies LORATADINE 68856784365 No Longer Active Christ Harms PA Active HYDROCORTISONE 1 % CREA apply 3 to 4 times per day HYDROCORTISONE 64005965633 No Longer Active Christ Harms PA Active AZITHROMYCIN 500 MG TABS 1 tablet PO daily x 6 days AZITHROMYCIN 68867510797 No Longer Active Christ Harms PA Active ZITHROMAX 250 MG TAB 2 po today, then 1 po q days 2-5 AZITHROMYCIN 21691500928 No Longer Active Christ Harms PA Active AMOXICILLIN 500 MG CAP 1 tab by mouth 3 times daily x 10 days AMOXICILLIN 62147772678 No Longer Active Christ Harms PA Active GENTAMICIN SULFATE 0.3 % SOLN 3 gtt OU tid x 7 d GENTAMICIN SULFATE 36711665544 No Longer Active Sanket W Cloven PA Active AMOXICILLIN 500 MG TABS 2 PO bid x 7 d AMOXICILLIN 82245862506 No Longer Active Sanket Angel PA Active CLARITIN 10 MG CAPS 1qd LORATADINE 31024844853 No Longer Active Sanket Angel PA Active ZITHROMAX 250 MG TAB 2 po today, then 1 po q days 2-5 AZITHROMYCIN 57250807039 No Longer Active Christ Harms PA Active AMOXICILLIN 500 MG CAP 1 tab by mouth 3 times daily x 10 days AMOXICILLIN 97362396688 No Longer Active Christ Harms PA Active AMOXICILLIN 500 MG CAP 1 tab by mouth 3 times daily x 10 days AMOXICILLIN 500 MG CAP 380470 AMOXICILLIN Inactive CLARITIN 10 MG CAPS 1qd CLARITIN 10 MG CAPS LORATADINE Inactive AMOXICILLIN 500 MG CAP 1 tab by mouth 3 times daily x 10 days AMOXICILLIN 500 MG CAP 577652 AMOXICILLIN Inactive AZITHROMYCIN 500 MG TABS 1 tablet PO daily x 6 days AZITHROMYCIN 500 MG TABS 8346133 AZITHROMYCIN Inactive HYDROCORTISONE 1 % CREA apply 3 to 4 times per day HYDROCORTISONE 1 % CREA 758550 HYDROCORTISONE Inactive CLARITIN 10 MG TAB 1 tablet by mouth daily as needed for allergies CLARITIN 10 MG TAB 429372 LORATADINE Inactive CEPHALEXIN 500 MG CAPS 1 tablet by mouth four times daily CEPHALEXIN 500 MG CAPS 699284 CEPHALEXIN Inactive ZITHROMAX 250 MG TAB 2 po today, then 1 po q days 2-5 ZITHROMAX 250 MG TAB 9901175 AZITHROMYCIN Inactive AMOXICILLIN 500 MG TABS 2 PO bid x 7 d AMOXICILLIN 500 MG TABS 617059 AMOXICILLIN Inactive GENTAMICIN SULFATE 0.3 % SOLN 3 gtt OU tid x 7 d GENTAMICIN SULFATE 0.3 % SOLN 496123 GENTAMICIN SULFATE Inactive ZITHROMAX 250 MG TAB 2 po today, then 1 po q days 2-5 ZITHROMAX 250 MG TAB 4921539 AZITHROMYCIN Inactive Vital Signs Date Name Value [...] negative Encounters Code Encounter Date Provider Facility CPT-40198 Level 3 Est. Patient 15:20:00 CDT Samantha Mccarthy APRN [facility] CPT-31257 Level 3 Est. Patient 07:02:29 CDT Christ PEDERSEN [facility] CPT-14755 Level 4 Est. Patient 07:58:02 CDT Christ Harms [facility] CPT-50743 Level 3 New Patient 16:50:18 CDT Charla Hammond MD [facility] CPT-22046 Level 3 Est. Patient 07:06:47 CDT Christ PEDERSEN [facility] CPT-75759 Level 3 Est. Patient 13:03:14 CDT Christ PEDERSEN [facility] CPT-15050 Level 3 Est. Patient 09:44:05 CDT Sanket Angel [facility] CPT-38637 Level 3 New Patient 14:13:26 CDT Christ PEDERSEN [facility] CPT-98130 Level 3 New Patient 08:42:00 CDT Christ PEDERSEN [facility] CPT-08719 Level 3 Est. 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 Patient 14:32:02 CDT Christ PEDERSEN [facility] CPT-88373 Level 3 Est. Patient 13:55:47 CDT Sanket Angel [facility] CPT-47780 Level 3 Est. Patient 07:36:37 FLAME CUTTING SUPERVISOR Christ PEDERSEN [facility] CPT-84783 Level 3 Est. Patient 10:35:07 CDT Christ PEDERSEN [facility] Procedures Code Procedure Name Date Entry Date Standard Description CPT-64693 Venipuncture Draw Fee 08:59:46 CDT CPT-40494 Venipuncture Draw Fee 16:02:00 CDT CPT-69335 Urine Dip (Floor Use Only) 16:50:18 CDT CPT-52298 Abd single AP View 09:49:22 CDT CPT-18634 Venipuncture Draw Fee 14:15:28 CDT CPT-77229 Rapid Strep -(Floor Use Only) 10:04:18 CDT CPT-75363 Venipuncture Draw Fee 10:04:18 CDT CPT-68000 Venipuncture Draw Fee 09:53:28 FLAME CUTTING SUPERVISOR CPT-79842 Rapid Strep -(Floor Use Only) 14:32:02 CDT CPT-20884 Influenza (Floor Use Only) 15:34:29 FLAME CUTTING SUPERVISOR CPT-82070 Rapid Strep -(Floor Use Only) 10:48:21 CDT CPT-04097 Venipuncture Draw Fee 10:48:21 CDT
--- OUTSIDE RECORDS SUMMARY | 2017-06-14 05:26 | XMS REPORT | Clinical Summary ---
Author Author Admin, LUISITO Organization [facility] Address Unknown Phone Unavailable Allergies, Adverse [...] tablet by mouth four times daily CEPHALEXIN 68403346010 Active Christ PEDERSEN Active CLARITIN 10 MG TAB 1 tablet by mouth daily as needed for allergies LORATADINE 95754583447 No Longer Active Christ Kye PEDERSEN Active HYDROCORTISONE 1 % CREA apply 3 to 4 times per day HYDROCORTISONE 79236259639 No Longer Active Christ Kye PEDERSEN Active AZITHROMYCIN 500 MG TABS 1 tablet PO daily x 6 days AZITHROMYCIN 80066263915 No Longer Active Christ Kye PEDERSEN Active ZITHROMAX 250 MG TAB 2 po today, then 1 po q days 2-5 AZITHROMYCIN 80931745709 No Longer Active Christ Kye PA Active AMOXICILLIN 500 MG CAP 1 tab by mouth 3 times daily x 10 days AMOXICILLIN 66037071706 No Longer Active Christ Kye PEDERSEN Active GENTAMICIN SULFATE 0.3 % SOLN 3 gtt OU tid x 7 d GENTAMICIN SULFATE 61742436939 No Longer Active Sanket PEDERSEN Active AMOXICILLIN 500 MG TABS 2 PO bid x 7 d AMOXICILLIN 32906720798 No Longer Active Sanket PEDERSEN Active CLARITIN 10 MG CAPS 1qd LORATADINE 20840444845 No Longer Active Sanket PEDERSEN Active ZITHROMAX 250 MG TAB 2 po today, then 1 po q days 2-5 AZITHROMYCIN 08835988221 No Longer Active Christ Kye PEDERSEN Active AMOXICILLIN 500 MG CAP 1 tab by mouth 3 times daily x 10 days AMOXICILLIN 78330363561 No Longer Active Christ Kye PA Active AMOXICILLIN 500 MG CAP 1 tab by mouth 3 times daily x 10 days AMOXICILLIN 500 MG CAP 741526 AMOXICILLIN Inactive CLARITIN 10 MG CAPS 1qd CLARITIN 10 MG CAPS LORATADINE Inactive AMOXICILLIN 500 MG CAP 1 tab by mouth 3 times daily x 10 days AMOXICILLIN 500 MG CAP 295590 AMOXICILLIN Inactive AZITHROMYCIN 500 MG TABS 1 tablet PO daily x 6 days AZITHROMYCIN 500 MG TABS 9982753 AZITHROMYCIN Inactive HYDROCORTISONE 1 % CREA apply 3 to 4 times per day HYDROCORTISONE 1 % CREA 427304 HYDROCORTISONE Inactive CLARITIN 10 MG TAB 1 tablet by mouth daily as needed for allergies CLARITIN 10 MG TAB 283519 LORATADINE Inactive ZITHROMAX 250 MG TAB 2 po today, then 1 po q days 2-5 ZITHROMAX 250 MG TAB 9817227 AZITHROMYCIN Inactive AMOXICILLIN 500 MG TABS 2 PO bid x 7 d AMOXICILLIN 500 MG TABS 321995 AMOXICILLIN Inactive GENTAMICIN SULFATE 0.3 % SOLN 3 gtt OU tid x 7 d GENTAMICIN SULFATE 0.3 % SOLN 933333 GENTAMICIN SULFATE Inactive ZITHROMAX 250 MG TAB 2 po today, then 1 po q days 2-5 ZITHROMAX 250 MG TAB 5479741 AZITHROMYCIN Inactive Vital Signs Date Name Value [...] Catch Encounters Code Encounter Date Provider Facility CPT-30204 Level 4 Est. Patient 07:58:02 CDT Christ PEDERSEN [facility] CPT-98076 Level 3 New Patient 16:50:18 CDT Charla Hammond MD [facility] CPT-32121 Level 3 Est. Patient 07:06:47 CDT Christ PEDERSEN [facility] CPT-72034 Level 3 Est. Patient 13:03:14 CDT Christ PEDERSEN [facility] CPT-77562 Level 3 Est. Patient 09:44:05 CDT Sanket PEDERSEN [facility] CPT-48212 Level 3 New Patient 14:13:26 CDT Christ PEDERSEN [facility] CPT-54479 Level 3 New Patient 08:42:00 CDT Christ Kye PEDERSEN [facility] CPT-43669 Level 3 Est. 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 Patient 14:32:02 CDT Christ PEDERSEN [facility] CPT-96858 Level 3 Est. Patient 13:55:47 CDT Sanket Angel [facility] CPT-00262 Level 3 Est. Patient 07:36:37 WEBFOCUS DEVELOPER Christ Fishman [facility] CPT-70729 Level 3 Est. Patient 10:35:07 CDT [facility] Procedures Code Procedure Name Date Entry Date Standard Description CPT-35465 Venipuncture Draw Fee 16:02:00 CDT CPT-00167 Urine Dip (Floor Use Only) 16:50:18 CDT CPT-00457 Abd single AP View 09:49:22 CDT CPT-21708 Venipuncture Draw Fee 14:15:28 CDT CPT-40453 Rapid Strep -(Floor Use Only) 10:04:18 CDT CPT-97989 Venipuncture Draw Fee 10:04:18 CDT CPT-21119 Venipuncture Draw Fee 09:53:28 WEBFOCUS DEVELOPER CPT-34475 Rapid Strep -(Floor Use Only) 14:32:02 CDT CPT-15747 Influenza (Floor Use Only) 15:34:29 WEBFOCUS DEVELOPER CPT-87643 Rapid Strep -(Floor Use Only) 10:48:21 CDT CPT-79936 Venipuncture Draw Fee 10:48:21 CDT
--- NOTE | 2017-06-14 05:27 | ED Abdominal Pain ---
General Chief Complaint: Abdominal/GI Problems Stated Complaint: L SIDE PAIN Source of Information: Patient Exam Limitations: No Limitations (NASRIN VELIZ) History of Present Illness Time Seen By Provider: 05:20 Initial Comments Patient presents to ER by private conveyance with a chief complaint she is having some left flank pain for last 3 or 4 days. She mostly blood in her urine about that time as well before the pain started. She thought maybe this was related to her recent starting of lamotrigine for bipolar disorder since she called her doctor and they said stop it. She is still on the Seroquel. She has a history of kidney stones about 1-2 times a year for the last couple years. She does not always go to the ER or have any workup done for she passed them spontaneously. She says last time that she had any imaging for kidney stones and was at [facility]. She says she is not sexually active but is not on her control her last menstrual period. She denies fevers, chills, vomiting but she does have some nausea. (NASRIN VELIZ) Allergies and Home Medications Allergies Coded Allergies: No Known Drug Allergies (Unverified , 06/14/17) Home Medications Alprazolam 0.5 Mg Tablet, (Reported) Cephalexin 500 Mg Tablet, 500 MG PO BID, #14 Ref 0 Prescribed by: JUANITA PATEL on 06/14/17 0755 Hydrocodone/Acetaminophen 1 Each Tablet, 1-2 EACH PO Q6H PRN for PAIN-MODERATE, #15 Ref 0 Prescribed by: JUANITA PATEL on 06/14/17 0755 Lamotrigine 25 Mg Tablet, (Reported) Review of Systems Constitutional: No chills, No diaphoresis, No fever Respiratory: Denies Cough, Denies Shortness of Air Gastrointestinal: See HPI, Abdominal Pain (left flank), Nausea, Denies Vomiting Genitourinary: Denies Burning, Denies Discharge Musculoskeletal: No back pain, No joint pain Skin: No pruritus (NASRIN VELIZ) Past Uxjayfw-Oaxknz-Gyifey Hx Patient Social History Alcohol Use: Denies Use Recreational Drug Use: No Smoking Status: Never a Smoker Recent Foreign Travel: No Contact w/Someone Who Travel: No (NASRIN VELIZ) Physical Exam Vital Signs VS - Last 72 Hours, by Label 06/14/17 06/14/17 05:24 05:41 Temp 97.6 97.6 Pulse 113 Resp 20 B/P (MAP) 130/94 O2 Delivery Room Air (JUANITA PATEL MD) Vital Signs Capillary Refill : (NASRIN VELIZ) General Appearance: WD/WN, mild distress HEENT: PERRL/EOMI, pharynx normal Respiratory: no respiratory distress, no accessory muscle use Cardiovascular: normal peripheral pulses, regular rate, rhythm, no edema Peripheral Pulses: 2+ Radial Pulses (R), 2+ Radial Pulses (L) Gastrointestinal: normal bowel sounds, non tender, soft Back: normal inspection, CVA tenderness (L) (to percussion) Neurologic/Psychiatric: alert, normal mood/affect, oriented x 3 Skin: normal color, warm/dry (NASRIN VELIZ) Progress/Results/Core Measures Results/Orders Lab Results Laboratory Tests Test 06/14/17 05:25 06/14/17 07:05 Range/Units Urine Color SADIA H Urine Clarity VERY CLOUDY H Urine pH 5 5-9 Urine Specific Inez 1.030 H 1.016-1.022 Urine Protein 3+ H NEGATIVE Urine Glucose (UA) NEGATIVE NEGATIVE Urine Ketones NEGATIVE NEGATIVE Urine Nitrite NEGATIVE NEGATIVE Urine Bilirubin NEGATIVE NEGATIVE Urine Urobilinogen NORMAL NORMAL MG/DL Urine Leukocyte Esterase 1+ H NEGATIVE Urine RBC (Auto) 5+ H NEGATIVE Urine RBC >100 H /HPF Urine WBC 0-2 /HPF Urine Squamous Epithelial Cells 10-25 H /HPF Urine Crystals NONE /LPF Urine Bacteria MODERATE H /HPF Urine Casts NONE /LPF Urine Mucus SMALL H /LPF Urine Culture Indicated YES White Blood Count 8.3 4.3-11.0 10^3/uL Red Blood Count 4.42 4.35-5.85 10^6/uL Hemoglobin 12.6 11.5-16.0 G/DL Hematocrit 38 35-52 % Mean Corpuscular Volume 85 80-99 FL Mean Corpuscular Hemoglobin 29 25-34 PG Mean Corpuscular Hemoglobin Concent 33 32-36 G/DL Red Cell Distribution Width 12.6 10.0-14.5 % Platelet Count 263 130-400 10^3/uL Mean Platelet Volume 10.8 H 7.4-10.4 FL Neutrophils (%) (Auto) 73 42-75 % Lymphocytes (%) (Auto) 17 12-44 % Monocytes (%) (Auto) 8 0-12 % Eosinophils (%) (Auto) 2 0-10 % Basophils (%) (Auto) 0 0-10 % Neutrophils # (Auto) 6.1 1.8-7.8 X 10^3 Lymphocytes # (Auto) 1.4 1.0-4.0 X 10^3 Monocytes # (Auto) 0.6 0.0-1.0 X 10^3 Eosinophils # (Auto) 0.2 0.0-0.3 10^3/uL Basophils # (Auto) 0.0 0.0-0.1 10^3/uL Sodium Level 139 135-145 MMOL/L Potassium Level 3.9 3.6-5.0 MMOL/L Chloride Level 107 98-107 MMOL/L Carbon Dioxide Level 23 21-32 MMOL/L Anion Gap 9 5-14 MMOL/L Blood Urea Nitrogen 12 7-18 MG/DL Creatinine 0.77 0.60-1.30 MG/DL Estimat Glomerular Filtration Rate > 60 BUN/Creatinine Ratio 16 Glucose Level 103 70-105 MG/DL Calcium Level 9.4 8.5-10.1 MG/DL Total Bilirubin 0.3 0.1-1.0 MG/DL Aspartate Amino Transf (AST/SGOT) 13 5-34 U/L Alanine Aminotransferase (ALT/SGPT) 9 0-55 U/L Alkaline Phosphatase 67 40-136 U/L Total Protein 7.9 6.4-8.2 GM/DL Albumin 4.0 3.2-4.5 GM/DL (JUANITA PATEL MD) My Orders Orders - JUANITA PATEL MD Cbc With Automated Diff (06/14/17 07:03) Comprehensive Metabolic Panel (06/14/17 07:03) Saline Lock/Iv-Start (06/14/17 07:05) Ns Iv 1000 Ml (Sodium Chloride 0.9%) (06/14/17 07:05) (JUANITA PATEL MD) Medications Given in ED Current Medications Medications Dose Ordered Sig/Aissatou Route Start Time Stop Time Status Last Admin Dose Admin Ketorolac Tromethamine 10 mg ONCE ONCE IM 06/14/17 05:45 06/14/17 05:46 DC 06/14/17 05:41 10 MG Ondansetron HCl 4 mg ONCE ONCE PO 06/14/17 05:30 06/14/17 05:31 DC 06/14/17 05:41 4 MG Sodium Chloride 1,000 ml @ 0 mls/hr Q0M ONCE IV 06/14/17 07:05 06/14/17 07:06 DC 06/14/17 07:14 0 MLS/HR (JUANITA PATEL MD) Vital Signs/I&O Vital Sign - Last 12Hours 06/14/17 06/14/17 05:24 05:41 Temp 97.6 97.6 Pulse 113 Resp 20 B/P (MAP) 130/94 O2 Delivery Room Air (JUANITA PATEL MD) Progress Note : Progress Note Seen and evaluated by me after assuming care from Dr. Veliz. CT results pending. 0700: CT results noted as listed below. I did discuss the case with Dr. Keene. Stone is small and should pass and can be seen on the KUB film. He would like to see her in the office later this week for further workup regarding the reasons that she is getting stones. The patient reports that she has had decreased urination recently but reports drinking plenty of fluids. There is family history of kidney disease including kidney stones, renal failure requiring transplant and sponge kidney disease. I will get basic labs at this point to evaluate kidney function. Normal saline 1 L bolus ordered as well. 0750: Fluids complete and patient still feeling better. Parents are here with the patient. All findings and concerns discussed with the patient and family. Discharged home with return precautions. Patient family verbalized understanding instructions and agreement with plan. (JUANITA PATEL MD) Diagnostic Imaging Diagonstic Imaging: Xray Plain Films/CT/US/NM/MRI: abdomen Reviewed: Reviewed by Me Diagonstic Imaging: CT Plain Films/CT/US/NM/MRI: abdomen, pelvis Reviewed: Reviewed by Me (NASRIN VELIZ) Comments VIA [facility]. [place], [place] NAME: PING ALBA MED REC#: [id number] PT STATUS: REG ER : 1995 PHYSICIAN: NASRIN VELIZ MD ADMIT DATE: 06/14/17/ER Draft Date of Exam:06/14/17 ABDOMEN/KUB 1VIEW INDICATION: Left flank pain x3 days. TECHNIQUE: 2 supine view of the abdomen 6:47 AM CORRELATION STUDY: None FINDINGS: Moderate amount of overlying bowel gas and stool is present. No evidence for obstructive uropathy. 2 mm stones located just inferior to the of the left L2 transverse process which could reflect a left ureteral stone. IMPRESSION: 1. Small calcifications below the left L2 transverse process could be reflective of underlying ureteral stone. Moderate severity fecal retention. Dictated on workstation # [id number] Dict: 06/14/1738 Trans: 06/14/17 0646 OANH [id number] Interpreted by: PARVIZ CALDERON DO Electronically signed by: Comments NAME: PING ALBA MED REC#: [id number] PT STATUS: REG ER : 1995 PHYSICIAN: NASRIN VELIZ MD ADMIT DATE: 06/14/17/ER Signed Date of Exam: 06/14/17 CT ABD/PELVIS WO(KIDNEY STONE) PROCEDURE: CT urinary tract, rule out kidney stone. TECHNIQUE: Multiple contiguous axial images were obtained through the abdomen and pelvis without the use of intravenous contrast. INDICATION: Left flank pain. There is a stone in the proximal left ureter at the L2 inferior endplate level measuring 3.5 mm and resulting in mild upstream hydronephrosis. There are additional 2-3 mm nonobstructing stones within left lower pole calyces. The right kidney without calculus or obstruction. Liver, gallbladder, spleen, adrenals and pancreas nonacute. There is upper limits spleen size. There is no appendicitis or diverticulitis. There is trace free fluid in the pelvic cul-de-sac is a common finding in a female patient of this age. IMPRESSION: 3.5 mm proximal left ureteral stone results in only mild proximal hydronephrosis. Additional nonobstructing intrarenal stones in the left kidney noted. Dictated by: Dictated on workstation # [id number] Dict: 06/14/1732 Trans: 06/14/17720 Interpreted by: MAJO TURNER Electronically signed by: MAJO TURNER 06/14/17 07 (JUANITA PATEL MD) Transfer of Care Transfer of Care Time: 06:07 Care transferred to: AMANDA (NASRIN VELIZ) Departure Impression Impression: Primary Impression: Left ureteral stone Disposition: 01 HOME, SELF-CARE Condition: Improved Departure-Patient Inst. Decision time for Depature: 07:54 (JUANITA PATEL MD) Referrals: NO,LOCAL PHYSICIAN (PCP) Primary Care Physician GEORGIE KEENE MD Patient Instructions: Kidney Stones (DC) Add. Discharge Instructions: All discharge instructions reviewed with patient and/or family. Voiced understanding. Drink plenty of fluids. Follow-up with the urologist later this week for recheck and further evaluation. Call his office today for appointment. Return for worse pain, fever, vomiting, weakness, breathing problems or other concerns as needed. Drink plenty of fluids. You may take ibuprofen 600 or 800 mg every 8 hours as needed for pain. Scripts Cephalexin (Cephalexin) 500 Mg Tablet 500 MG PO BID, #14 TAB 0 Refills Prov: JUANITA PATEL MD 06/14/17 Hydrocodone/Acetaminophen (Hydrocodon -Acetaminophen 5-325) 1 Each Tablet 1-2 EACH PO Q6H Y for PAIN-MODERATE, #15 TAB 0 Refills Prov: JUANITA PATEL MD 06/14/17 Copy Copies To 1: GEORGIE KEENE MD, TITUS J Jun 14, 2017 05:27 JUANITA PATEL MD Jun 14, 2017 07:55
--- OUTSIDE RECORDS SUMMARY | 2017-06-14 05:27 | XMS REPORT | Clinical Summary ---
Demographics Address [address] [place] [address] Home Phone [email or web address] Preferred Language Greenlandic Marital Status S [employer] Affiliation Unknown Race Unknown Ethnic Group Not or Author Author Admin, E Organization [facility] Address Unknown Phone Unavailable Allergies, Adverse Reactions, Alerts Allergy Name Reaction Description Start Date Severity Status Provider No Known Allergies Anamaria Anderson LPN NKDA Critical Active Anamaria Andref LADLE MECHANIC Conditions or Problems Problem Name Problem [...] of unknown origin 780.60 Resolved Samantha Yokum BOW REPAIRER CUSTOM Fever, unspecified Acute pharyngitis 462 Resolved Samantha Yokum BOW REPAIRER CUSTOM Acute pharyngitis Upper respiratory infection 465.9 Resolved Samantha Yokum BOW REPAIRER CUSTOM Acute upper respiratory infections of unspecified site Allergic reaction 995.3 Resolved Samantha Yokum BOW REPAIRER CUSTOM Allergy, unspecified, not elsewhere classified Dysuria 788.1 Resolved Samantha Yokum BOW REPAIRER CUSTOM Dysuria Family history of renal disease V18.69 Active Christ PEDERSEN Family history of other kidney diseases Renal calculus, hx of V13.01 Resolved Jennifer Mendez APRN Personal history of urinary calculi Microscopic hematuria 599.72 Resolved Samantha Yokum BOW REPAIRER CUSTOM Microscopic hematuria Hematuria 599.70 Resolved Samantha Yokum BOW REPAIRER CUSTOM Hematuria, unspecified Muscle spasm 728.85 Resolved Samantha Yokum BOW REPAIRER CUSTOM Spasm of muscle Easy bruising 782.9 Resolved Samantha Yokum BOW REPAIRER CUSTOM Other symptoms involving skin and integumentary tissues Athletic physical, normal V70.3 Active Samantha Fabio ARTN Other general medical examination for administrative purposes Back spasm 724.8 Active Christ PEEDRSEN Other symptoms referable to back Easy bruising 782.9 Active Christ PEDERSEN Other symptoms involving skin and integumentary tissues Otitis externa, acute, right 380.12 Active Jenae Arce BOW REPAIRER CUSTOM Acute swimmers' ear Depression with anxiety 300.4 [...] of unknown origin ICD-780.60 Inactive Samantha Yokum BOW REPAIRER CUSTOM Acute pharyngitis ICD-462 Inactive Samantha Yokum BOW REPAIRER CUSTOM Upper respiratory infection ICD-465.9 Inactive Samantha Yokum BOW REPAIRER CUSTOM Allergic reaction ICD-995.3 Inactive Samantha Yokum BOW REPAIRER CUSTOM Dysuria ICD-788.1 Inactive Samatnha Yokum BOW REPAIRER CUSTOM 02/08 Renal calculus, hx of ICD-V13.01 Inactive Jennifer Mendez BOW REPAIRER CUSTOM Microscopic hematuria ICD-599.72 Inactive Samantha Yokum BOW REPAIRER CUSTOM Hematuria ICD-599.70 Inactive Samantha Yokum BOW REPAIRER CUSTOM Muscle spasm ICD-728.85 Inactive Samantha Yokum BOW REPAIRER CUSTOM Easy bruising ICD-782.9 Inactive Samantha Yokum BOW REPAIRER CUSTOM Medication List Medication Instructions Start Date Stop Date Generic Name NDC Status Provider Patient Instruction BACTRIM DS 800-160 MG TABS 1 twice a day SULFAMETHOXAZOLE- TRIMETHOPRIM [id number] Active Soo Madl LADLE MECHANIC Active PAXIL 20 MG ORAL TABS 1 tab daily PAROXETINE HCL 00327873546 Active Soo Martell LADLE MECHANIC Active CORTISPORIN 3.5-39515-6 SOLN 4gtts in affected ear QID x 7 days [id number] 06337578406 No Longer Active Soo Madl LADLE MECHANIC Active CEPHALEXIN 500 MG CAPS 1 tablet by mouth four times daily CEPHALEXIN 67423729312 No Longer Active Christ Harms PA Active CLARITIN 10 MG TAB 1 tablet by mouth daily as needed for allergies LORATADINE 90815878834 No Longer Active Christ Harms PA Active HYDROCORTISONE 1 % CREA apply 3 to 4 times per day HYDROCORTISONE 20187011396 No Longer Active Christ Harms PA Active AZITHROMYCIN 500 MG TABS 1 tablet PO daily x 6 days AZITHROMYCIN 34000729103 No Longer Active Christ Harms PA Active ZITHROMAX 250 MG TAB 2 po today, then 1 po q days 2-5 AZITHROMYCIN 84370481390 No Longer Active Christ Harms PA Active AMOXICILLIN 500 MG CAP 1 tab by mouth 3 times daily x 10 days AMOXICILLIN 91707802060 No Longer Active Christ Harms PA Active GENTAMICIN SULFATE 0.3 % SOLN 3 gtt OU tid x 7 d GENTAMICIN SULFATE 29837388131 No Longer Active Sanket PEDERSEN Active AMOXICILLIN 500 MG TABS 2 PO bid x 7 d AMOXICILLIN 85353903154 No Longer Active Sanket PEDERSEN Active CLARITIN 10 MG CAPS 1qd LORATADINE 67717133295 No Longer Active Sanket Angel PA Active ZITHROMAX 250 MG TAB 2 po today, then 1 po q days 2-5 AZITHROMYCIN 61761141151 No Longer Active Christ Harms PA Active AMOXICILLIN 500 MG CAP 1 tab by mouth 3 times daily x 10 days AMOXICILLIN 73349961047 No Longer Active Christ Harms PA Active AMOXICILLIN 500 MG CAP 1 tab by mouth 3 times daily x 10 days AMOXICILLIN 500 MG CAP 811440 AMOXICILLIN Inactive CLARITIN 10 MG CAPS 1qd CLARITIN 10 MG CAPS 675274 LORATADINE Inactive AMOXICILLIN 500 MG CAP 1 tab by mouth 3 times daily x 10 days AMOXICILLIN 500 MG CAP 034020 AMOXICILLIN Inactive AZITHROMYCIN 500 MG TABS 1 tablet PO daily x 6 days AZITHROMYCIN 500 MG TABS 5021050 AZITHROMYCIN Inactive HYDROCORTISONE 1 % CREA apply 3 to 4 times per day HYDROCORTISONE 1 % CREA 509447 HYDROCORTISONE Inactive CLARITIN 10 MG TAB 1 tablet by mouth daily as needed for allergies CLARITIN 10 MG TAB 893763 LORATADINE Inactive CEPHALEXIN 500 MG CAPS 1 tablet by mouth four times daily CEPHALEXIN 500 MG CAPS 698720 CEPHALEXIN Inactive CORTISPORIN 3.5-41762-3 SOLN 4gtts in affected ear QID x 7 days CORTISPORIN 3.5-15489-9 SOLN 138806 [id number] Inactive ZITHROMAX 250 MG TAB 2 po today, then 1 po q days 2-5 ZITHROMAX 250 MG TAB 8993532 AZITHROMYCIN Inactive AMOXICILLIN 500 MG TABS 2 PO bid x 7 d AMOXICILLIN 500 MG TABS 886774 AMOXICILLIN Inactive GENTAMICIN SULFATE 0.3 % SOLN 3 gtt OU tid x 7 d GENTAMICIN SULFATE 0.3 % SOLN 293482 GENTAMICIN SULFATE Inactive ZITHROMAX 250 MG TAB 2 po today, then 1 po q days 2-5 ZITHROMAX 250 MG TAB 3882053 AZITHROMYCIN Inactive Vital Signs Date Name Value [...] Measured Encounters Code Encounter Date Provider Facility CPT-46039 Level 3 Est. Patient 10:58:[address] [facility] CPT-35006 Level 3 Est. Patient 15:12:[address] [facility] CPT-01809 Level 3 Est. Patient 14:20:[address] [facility] CPT-84857 Level 4 Est. Patient 07:31:22 CDT Christ Fishman [facility] CPT-55015 Level 3 Est. Patient 15:20:[address] [facility] [place] CPT-88627 Level 3 Est. Patient 07:02:29 CDT Christ PEDERSEN [facility] [place] CPT-54398 Level 4 Est. Patient 07:58:02 CDT Christ PEDERSEN [facility] CPT-33782 Level 3 New Patient 16:50:18 CDT Charla Hammond MD [facility] CPT-21618 Level 3 Est. Patient 07:06:47 CDT Christ PEDERSEN [facility] CPT-06390 Level 3 Est. Patient 13:03:14 CDT Christ PEDERSEN [facility] CPT-33466 Level 3 Est. Patient 09:44:05 CDT Sanket Angel [facility] CPT-92266 Level 3 New Patient 14:13:26 CDT Christ PEDERSEN [facility] CPT-52772 Level 3 New Patient 08:42:00 CDT Christ Fishman [facility] [place] CPT-98369 Level 3 Est. 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 Patient 14:32:02 CDT Christ PEDERSEN [facility] CPT-84991 Level 3 Est. Patient 13:55:47 CDT Sanket Angel [facility] CPT-08500 Level 3 Est. 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 Patient 10:35:07 CDT Christ PEDERSEN [facility] Procedures Code Procedure Name Date Entry Date Standard Description CPT-12761 Abd compl w upright - XRAY USE ONLY 11:08:53 CDT 01/11 CPT-25980 Venipuncture Draw Fee 16:34:16 CDT CPT-01020 Venipuncture Draw Fee 08:59:46 CDT CPT-30373 Venipuncture Draw Fee 16:02:00 CDT CPT-71734 Urine Dip (Floor Use Only) 16:50:18 CDT CPT-35379 Abd single AP View 09:49:22 CDT CPT-85332 Venipuncture Draw Fee 14:15:28 CDT CPT-13189 Rapid Strep -(Floor Use Only) 10:04:18 CDT CPT-04058 Venipuncture Draw Fee 10:04:18 CDT CPT-40640 Venipuncture Draw Fee 09:53:28 COACH 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
--- OUTSIDE RECORDS SUMMARY | 2017-06-14 05:27 | XMS REPORT | Clinical Summary ---
Author Author Admin, E Organization [facility] Address Unknown Phone Unavailable Allergies, Adverse Reactions, Alerts Allergy Name Reaction Description Start Date Severity Status Provider No Known Allergies Anamaria Anderson LPN NKDA Critical Active Anamaria Andref DENTURE CONTOUR WIRE SPECIALIST Conditions or Problems Problem Name Problem Code [...] of unknown origin 780.60 Resolved Samantha Yokum PHYSICAL SCIENCES INSTRUCTOR Fever, unspecified Acute pharyngitis 462 Resolved Samantha Yokum PHYSICAL SCIENCES INSTRUCTOR Acute pharyngitis Upper respiratory infection 465.9 Resolved Samantha Yokum PHYSICAL SCIENCES INSTRUCTOR Acute upper respiratory infections of unspecified site Allergic reaction 995.3 Resolved Samantha Yokum PHYSICAL SCIENCES INSTRUCTOR Allergy, unspecified, not elsewhere classified Dysuria 788.1 Resolved Samantha Yokum PHYSICAL SCIENCES INSTRUCTOR Dysuria Family history of renal disease V18.69 Active Christ PEDERSEN Family history of other kidney diseases Renal calculus, hx of V13.01 Resolved Jennifer Mendez APRN Personal history of urinary calculi Microscopic hematuria 599.72 Resolved Samantha Yokum PHYSICAL SCIENCES INSTRUCTOR Microscopic hematuria Hematuria 599.70 Resolved Samantha Yokum PHYSICAL SCIENCES INSTRUCTOR Hematuria, unspecified Muscle spasm 728.85 Resolved Samantha Yokum PHYSICAL SCIENCES INSTRUCTOR Spasm of muscle Easy bruising 782.9 Resolved Samantha Yokum PHYSICAL SCIENCES INSTRUCTOR Other symptoms involving skin and integumentary tissues Athletic physical, normal V70.3 Active Samantha Fabio ARTN Other general medical examination for administrative purposes Back spasm 724.8 Active Christ PEDERSEN Other symptoms referable to back Easy bruising 782.9 Active Christ PEDERSEN Other symptoms involving skin and integumentary tissues Otitis externa, acute, right 380.12 Active Jenae Arce PHYSICAL SCIENCES INSTRUCTOR Acute swimmers' ear Depression with anxiety 300.4 [...] UPPER RESPIRATORY INFECTION, ACUTE ICD-465.9 Inactive Christ Kye PA CONJUNCTIVITIS ICD-372.30 Inactive Christ Kye PA Viral syndrome ICD-079.99 Inactive Christ Kye PA Hematuria ICD-599.70 Inactive Christ Kye PA 09/15 UTI ICD-599.0 Inactive Christ Kye PA Fever of unknown origin ICD-780.60 Inactive Samantha Yokum PHYSICAL SCIENCES INSTRUCTOR Acute pharyngitis ICD-462 Inactive Samantha Yokum PHYSICAL SCIENCES INSTRUCTOR Upper respiratory infection ICD-465.9 Inactive Samantha Yokum PHYSICAL SCIENCES INSTRUCTOR Allergic reaction ICD-995.3 Inactive Samantha Yokum PHYSICAL SCIENCES INSTRUCTOR Dysuria ICD-788.1 Inactive Samantha Yokum PHYSICAL SCIENCES INSTRUCTOR 02/08 Renal calculus, hx of ICD-V13.01 Inactive Jennifer Mendez PHYSICAL SCIENCES INSTRUCTOR Microscopic hematuria ICD-599.72 Inactive Samantha Yokum PHYSICAL SCIENCES INSTRUCTOR Hematuria ICD-599.70 Inactive Samantha Yokum PHYSICAL SCIENCES INSTRUCTOR Muscle spasm ICD-728.85 Inactive Samantha Yokum PHYSICAL SCIENCES INSTRUCTOR Easy bruising ICD-782.9 Inactive Samantha Yokum PHYSICAL SCIENCES INSTRUCTOR PHARYNGITIS ICD-462 Inactive Christ Fishman PA Medication List Medication Instructions Start Date Stop Date Generic Name NDC Status Provider Patient Instruction BACTRIM DS 800-160 MG TABS 1 twice a day SULFAMETHOXAZOLE- TRIMETHOPRIM 84247397416 Active Soo Madl DENTURE CONTOUR WIRE SPECIALIST Active PAXIL 20 MG ORAL TABS 1 tab daily PAROXETINE HCL 45653027187 Active Soo Martell DENTURE CONTOUR WIRE SPECIALIST Active CORTISPORIN 3.5-23417-5 SOLN 4gtts in affected ear QID x 7 days [id number] 34153804454 No Longer Active Soo Madl DENTURE CONTOUR WIRE SPECIALIST Active CEPHALEXIN 500 MG CAPS 1 tablet by mouth four times daily CEPHALEXIN 51916530541 No Longer Active Christ Harms PA Active CLARITIN 10 MG TAB 1 tablet by mouth daily as needed for allergies LORATADINE 56452278002 No Longer Active Christ Harms PA Active HYDROCORTISONE 1 % CREA apply 3 to 4 times per day HYDROCORTISONE 89520191669 No Longer Active Christ Harms PA Active AZITHROMYCIN 500 MG TABS 1 tablet PO daily x 6 days AZITHROMYCIN 98082997237 No Longer Active Christ Harms PA Active ZITHROMAX 250 MG TAB 2 po today, then 1 po q days 2-5 AZITHROMYCIN 03561137455 No Longer Active Christ Harms PA Active AMOXICILLIN 500 MG CAP 1 tab by mouth 3 times daily x 10 days AMOXICILLIN 93614922683 No Longer Active Christ Harms PA Active GENTAMICIN SULFATE 0.3 % SOLN 3 gtt OU tid x 7 d GENTAMICIN SULFATE 07236956498 No Longer Active Sanket PEDERSEN Active AMOXICILLIN 500 MG TABS 2 PO bid x 7 d AMOXICILLIN 24940284285 No Longer Active Sanket PEDERSEN Active CLARITIN 10 MG CAPS 1qd LORATADINE 68158073680 No Longer Active Sanket Angel PA Active ZITHROMAX 250 MG TAB 2 po today, then 1 po q days 2-5 AZITHROMYCIN 02844133908 No Longer Active Christ Harms PA Active AMOXICILLIN 500 MG CAP 1 tab by mouth 3 times daily x 10 days AMOXICILLIN 86355900666 No Longer Active Christ Harms PA Active AMOXICILLIN 500 MG CAP 1 tab by mouth 3 times daily x 10 days AMOXICILLIN 500 MG CAP 536391 AMOXICILLIN Inactive CLARITIN 10 MG CAPS 1qd CLARITIN 10 MG CAPS 874012 LORATADINE Inactive AMOXICILLIN 500 MG CAP 1 tab by mouth 3 times daily x 10 days AMOXICILLIN 500 MG CAP 682957 AMOXICILLIN Inactive AZITHROMYCIN 500 MG TABS 1 tablet PO daily x 6 days AZITHROMYCIN 500 MG TABS 5880392 AZITHROMYCIN Inactive HYDROCORTISONE 1 % CREA apply 3 to 4 times per day HYDROCORTISONE 1 % CREA 572844 HYDROCORTISONE Inactive CLARITIN 10 MG TAB 1 tablet by mouth daily as needed for allergies CLARITIN 10 MG TAB 113241 LORATADINE Inactive CEPHALEXIN 500 MG CAPS 1 tablet by mouth four times daily CEPHALEXIN 500 MG CAPS 203951 CEPHALEXIN Inactive CORTISPORIN 3.5-02410-9 SOLN 4gtts in affected ear QID x 7 days CORTISPORIN 3.5-18952-8 SOLN 541613 [id number] Inactive ZITHROMAX 250 MG TAB 2 po today, then 1 po q days 2-5 ZITHROMAX 250 MG TAB 9538650 AZITHROMYCIN Inactive AMOXICILLIN 500 MG TABS 2 PO bid x 7 d AMOXICILLIN 500 MG TABS 499109 AMOXICILLIN Inactive GENTAMICIN SULFATE 0.3 % SOLN 3 gtt OU tid x 7 d GENTAMICIN SULFATE 0.3 % SOLN 354064 GENTAMICIN SULFATE Inactive ZITHROMAX 250 MG TAB 2 po today, then 1 po q days 2-5 ZITHROMAX 250 MG TAB 9823161 AZITHROMYCIN Inactive Vital Signs Date Name Value [...] Measured Encounters Code Encounter Date Provider Facility CPT-81761 Level 3 Est. Patient 10:58:20 CDT Jennifer Mendez [facility] CPT-23298 Level 3 Est. Patient 15:12:20 CDT Jennifer Mendez [facility] CPT-20201 Level 3 Est. Patient 14:20:20 CDT Jenae Arce [facility] CPT-50591 Level 4 Est. Patient 07:31:22 CDT Christ PEDERSEN [facility] CPT-27131 Level 3 Est. Patient 15:20:00 CDT Samantha Mccarthy [facility] CPT-59190 Level 3 Est. Patient 07:02:29 CDT Christ PEDERSEN [facility] CPT-82136 Level 4 Est. Patient 07:58:02 CDT Christ PEDERSEN [facility] CPT-04036 Level 3 New Patient 16:50:18 CDT Charla Hammond MD [facility] CPT-20521 Level 3 Est. Patient 07:06:47 CDT Christ PEDERSEN [facility] CPT-60430 Level 3 Est. Patient 13:03:14 CDT Christ PEDERSEN [facility] CPT-90266 Level 3 Est. Patient 09:44:05 CDT Sanket Angel [facility] CPT-30485 Level 3 New Patient 14:13:26 CDT Christ Fishman NUVIA [facility] CPT-38449 Level 3 New Patient 08:42:00 CDT Christ Kye PEDERSEN [facility] [place] CPT-11875 Level 3 Est. Patient 06:15:09 INSULATION INSTALLER Christ Fishman [facility] [place] CPT-10834 Level 3 Est. Patient 14:32:02 CDT Christ PEDERSEN [facility] CPT-20451 Level 3 Est. Patient 13:55:47 CDT Sanket Angel [facility] CPT-14039 Level 3 Est. Patient 07:36:37 INSULATION INSTALLER Christ Kye [facility] CPT-05089 Level 3 Est. Patient 10:35:07 CDT Christ Fishman [facility] Procedures Code Procedure Name Date Entry Date Standard Description CPT-70990 Abd compl w upright - XRAY USE ONLY 11:08:53 CDT 01/11 CPT-57017 Venipuncture Draw Fee 16:34:16 CDT CPT-07987 Venipuncture Draw Fee 08:59:46 CDT CPT-36209 Venipuncture Draw Fee 16:02:00 CDT CPT-47079 Urine Dip (Floor Use Only) 16:50:18 CDT CPT-66076 Abd single AP View 09:49:22 CDT CPT-34824 Venipuncture Draw Fee 14:15:28 CDT CPT-84632 Rapid Strep -(Floor Use Only) 10:04:18 CDT CPT-95569 Venipuncture Draw Fee 10:04:18 CDT CPT-47664 Venipuncture Draw Fee 09:53:28 INSULATION INSTALLER CPT-70321 Rapid Strep -(Floor Use Only) 14:32:02 CDT CPT-94690 Influenza (Floor Use Only) 15:34:29 INSULATION INSTALLER CPT-36714 Rapid Strep -(Floor Use Only) 10:48:21 CDT CPT-32453 Venipuncture Draw Fee 10:48:21 CDT
--- OUTSIDE RECORDS SUMMARY | 2017-06-14 05:28 | XMS REPORT | Clinical Summary ---
Author Author Admin, E Organization [facility] Address Unknown Phone Unavailable Allergies, Adverse Reactions, Alerts Allergy Name Reaction Description Start Date Severity Status Provider No Known Allergies Anamaria Anderson LPN NKDA Critical Active Anamaria Andref VISITOR SERVICES ASSOCIATE Conditions or Problems Problem Name Problem Code [...] of unknown origin 780.60 Resolved Samantha Yokum MEDIA MONITOR Fever, unspecified Acute pharyngitis 462 Resolved Samantha Yokum MEDIA MONITOR Acute pharyngitis Upper respiratory infection 465.9 Resolved Samantha Yokum MEDIA MONITOR Acute upper respiratory infections of unspecified site Allergic reaction 995.3 Resolved Samantha Yokum MEDIA MONITOR Allergy, unspecified, not elsewhere classified Dysuria 788.1 Resolved Samantha Yokum MEDIA MONITOR Dysuria Family history of renal disease V18.69 Active Christ PEDERSEN Family history of other kidney diseases Renal calculus, hx of V13.01 Active Christ PEDERSEN Personal history of urinary calculi Microscopic hematuria 599.72 Resolved Samantha Yokum MEDIA MONITOR Microscopic hematuria Hematuria 599.70 Resolved Samantha Yokum MEDIA MONITOR Hematuria, unspecified Muscle spasm 728.85 Resolved Samantha Yokum MEDIA MONITOR Spasm of muscle Easy bruising 782.9 Resolved Samantha Yokum MEDIA MONITOR Other symptoms involving skin and integumentary tissues Athletic physical, normal V70.3 Active Samantha Yokaiserum MEDIA MONITOR Other general medical examination for administrative purposes Back spasm 724.8 Active Christ PEDERSEN Other symptoms referable to back Easy bruising 782.9 Active Christ PEDERSEN Other symptoms involving skin and integumentary tissues Otitis externa, acute, right 380.12 Active Jenae Arce MEDIA MONITOR Acute swimmers' ear Depression with anxiety 300.4 Active Jennifer Mendez MEDIA MONITOR Dysthymic disorder PHARYNGITIS, ACUTE, SEVERE ICD-462 Inactive Christ PEDERSEN UPPER RESPIRATORY INFECTION, ACUTE ICD-465.9 Inactive Christ PEDERSEN CONJUNCTIVITIS ICD-372.30 Inactive Christ PEDERSEN Viral syndrome ICD-079.99 Inactive Christ PEDERSEN Hematuria ICD-599.70 Inactive Christ PEDERSEN 2014/ 03/14 UTI ICD-599.0 Inactive Christ Fishman PA PHARYNGITIS ICD-462 Inactive Christ Fishman PA Upper respiratory infection ICD-465.9 Inactive Samantha Yokum MEDIA MONITOR Allergic reaction ICD-995.3 Inactive Samantha Yokum MEDIA MONITOR Dysuria ICD-788.1 Inactive Samantha Yokum MEDIA MONITOR 02/08 Microscopic hematuria ICD-599.72 Inactive Samantha Yokum MEDIA MONITOR Hematuria ICD-599.70 Inactive Samantha Yokum MEDIA MONITOR Muscle spasm ICD-728.85 Inactive Samantha Yokum MEDIA MONITOR Easy bruising ICD-782.9 Inactive Samantha Yokum MEDIA MONITOR Fever of unknown origin ICD-780.60 Inactive Samantha Yokum MEDIA MONITOR Acute pharyngitis ICD-462 Inactive Samantha Yokum MEDIA MONITOR Medication List Medication Instructions Start Date Stop Date Generic Name NDC Status Provider Patient Instruction PAROXETINE HCL 10 MG TABS 1 daily for depression/anxiety PAROXETINE HCL 87560277761 Active Jennifer Mendez MEDIA MONITOR Active CORTISPORIN 3.5-62337-2 SOLN 4gtts in affected ear QID x 7 days [id number] 28772773965 No Longer Active Soo Muse VISITOR SERVICES ASSOCIATE Active CEPHALEXIN 500 MG CAPS 1 tablet by mouth four times daily CEPHALEXIN 99617437947 No Longer Active Christ Fishman PA Active CLARITIN 10 MG TAB 1 tablet by mouth daily as needed for allergies LORATADINE 04939861026 No Longer Active Christ Harms PA Active HYDROCORTISONE 1 % CREA apply 3 to 4 times per day HYDROCORTISONE 58899856394 No Longer Active Christ Harms PA Active AZITHROMYCIN 500 MG TABS 1 tablet PO daily x 6 days AZITHROMYCIN 35532527481 No Longer Active Christ Harms PA Active ZITHROMAX 250 MG TAB 2 po today, then 1 po q days 2-5 AZITHROMYCIN 93486891500 No Longer Active Christ Harms PA Active AMOXICILLIN 500 MG CAP 1 tab by mouth 3 times daily x 10 days AMOXICILLIN 08448509715 No Longer Active Christ Harms PA Active GENTAMICIN SULFATE 0.3 % SOLN 3 gtt OU tid x 7 d GENTAMICIN SULFATE 20464973431 No Longer Active Sanket PEDERSEN Active AMOXICILLIN 500 MG TABS 2 PO bid x 7 d AMOXICILLIN 65723114269 No Longer Active Sanket PEDERSEN Active CLARITIN 10 MG CAPS 1qd LORATADINE 64896137043 No Longer Active Sanket PEDERSEN Active ZITHROMAX 250 MG TAB 2 po today, then 1 po q days 2-5 AZITHROMYCIN 88812246978 No Longer Active Christ Harms PA Active AMOXICILLIN 500 MG CAP 1 tab by mouth 3 times daily x 10 days AMOXICILLIN 18865913491 No Longer Active Christ Harms PA Active AMOXICILLIN 500 MG CAP 1 tab by mouth 3 times daily x 10 days AMOXICILLIN 500 MG CAP 235575 AMOXICILLIN Inactive CLARITIN 10 MG CAPS 1qd CLARITIN 10 MG CAPS 996289 LORATADINE Inactive AMOXICILLIN 500 MG CAP 1 tab by mouth 3 times daily x 10 days AMOXICILLIN 500 MG CAP 795439 AMOXICILLIN Inactive AZITHROMYCIN 500 MG TABS 1 tablet PO daily x 6 days AZITHROMYCIN 500 MG TABS 0816063 AZITHROMYCIN Inactive HYDROCORTISONE 1 % CREA apply 3 to 4 times per day HYDROCORTISONE 1 % CREA 679581 HYDROCORTISONE Inactive CLARITIN 10 MG TAB 1 tablet by mouth daily as needed for allergies CLARITIN 10 MG TAB 371639 LORATADINE Inactive CEPHALEXIN 500 MG CAPS 1 tablet by mouth four times daily CEPHALEXIN 500 MG CAPS 742613 CEPHALEXIN Inactive CORTISPORIN 3.5-32352-9 SOLN 4gtts in affected ear QID x 7 days CORTISPORIN 3.5-02647-4 SOLN 959984 [id number] Inactive ZITHROMAX 250 MG TAB 2 po today, then 1 po q days 2-5 ZITHROMAX 250 MG TAB 8155909 AZITHROMYCIN Inactive AMOXICILLIN 500 MG TABS 2 PO bid x 7 d AMOXICILLIN 500 MG TABS 445481 AMOXICILLIN Inactive GENTAMICIN SULFATE 0.3 % SOLN 3 gtt OU tid x 7 d GENTAMICIN SULFATE 0.3 % SOLN 013894 GENTAMICIN SULFATE Inactive ZITHROMAX 250 MG TAB 2 po today, then 1 po q days 2-5 ZITHROMAX 250 MG TAB 3831186 AZITHROMYCIN Inactive Vital Signs Date Name Value [...] Measured Encounters Code Encounter Date Provider Facility CPT-46330 Level 3 Est. Patient 15:12:20 CDT Jennifer Mendez [facility] CPT-85969 Level 3 Est. Patient 14:20:20 CDT Jenae Arce [facility] CPT-77190 Level 4 Est. Patient 07:31:22 CDT Christ Fishman [facility] CPT-12228 Level 3 Est. Patient 15:20:00 CDT Samantha Mccarthy [facility] CPT-35606 Level 3 Est. Patient 07:02:29 CDT Christ Fishman [facility] CPT-20703 Level 4 Est. Patient 07:58:02 CDT Christ Fishman [facility] CPT-55567 Level 3 New Patient 16:50:18 CDT Charla Hammond MD [facility] CPT-54172 Level 3 Est. Patient 07:06:47 CDT Christ Fishman [facility] CPT-16480 Level 3 Est. Patient 13:03:14 CDT Christ Fishman [facility] CPT-26659 Level 3 Est. Patient 09:44:05 CDT Sanket Angel [facility] CPT-61907 Level 3 New Patient 14:13:26 CDT Christ Fishman [facility] CPT-23953 Level 3 New Patient 08:42:00 CDT Christ PEDERSEN [facility] CPT-90691 Level 3 Est. Patient 06:15:09 RESIDENCY COORDINATOR Christ PEDERSEN [facility] CPT-93138 Level 3 Est. Patient 14:32:02 CDT Christ Fishman [facility] CPT-26552 Level 3 Est. Patient 13:55:47 CDT Sanket Angel [facility] CPT-98950 Level 3 Est. Patient 07:36:37 RESIDENCY COORDINATOR Christ PEDERSEN [facility] CPT-01747 Level 3 Est. Patient 10:35:07 CDT Christ Fishman [facility] Procedures Code Procedure Name Date Entry Date Standard Description CPT-58242 Venipuncture Draw Fee 16:34:16 CDT CPT-35213 Venipuncture Draw Fee 08:59:46 CDT CPT-79839 Venipuncture Draw Fee 16:02:00 CDT CPT-86881 Urine Dip (Floor Use Only) 16:50:18 CDT CPT-58319 Abd single AP View 09:49:22 CDT CPT-04414 Venipuncture Draw Fee 14:15:28 CDT CPT-12350 Rapid Strep -(Floor Use Only) 10:04:18 CDT CPT-87736 Venipuncture Draw Fee 10:04:18 CDT CPT-09162 Venipuncture Draw Fee 09:53:28 RESIDENCY COORDINATOR CPT-31931 Rapid Strep -(Floor Use Only) 14:32:02 CDT CPT-52202 Influenza (Floor Use Only) 15:34:29 RESIDENCY COORDINATOR CPT-13030 Rapid Strep -(Floor Use Only) 10:48:21 CDT CPT-25054 Venipuncture Draw Fee 10:48:21 CDT
--- OUTSIDE RECORDS SUMMARY | 2017-06-14 05:29 | XMS REPORT | Clinical Summary ---
[...] of unknown origin 780.60 Resolved Samantha Yokum NUTRITION INTERN Fever, unspecified Acute pharyngitis 462 Resolved Samantha Yokum NUTRITION INTERN Acute pharyngitis Upper respiratory infection 465.9 Resolved Samantha Yokum NUTRITION INTERN Acute upper respiratory infections of unspecified site Allergic reaction 995.3 Resolved Samantha Yokum NUTRITION INTERN Allergy, unspecified, not elsewhere classified Dysuria 788.1 Resolved Samantha Yokum NUTRITION INTERN Dysuria Family history of renal disease V18.69 Active Christ PEDERSEN Family history of other kidney diseases Renal calculus, hx of V13.01 Active Christ Fishman PA Personal history of urinary calculi Microscopic hematuria 599.72 Resolved Samantha Yokum NUTRITION INTERN Microscopic hematuria Hematuria 599.70 Resolved Samantha Yokum NUTRITION INTERN Hematuria, unspecified Muscle spasm 728.85 Resolved Samantha Yokum NUTRITION INTERN Spasm of muscle Easy bruising 782.9 Resolved Samantha Yokum NUTRITION INTERN Other symptoms involving skin and integumentary tissues Athletic physical, normal V70.3 Active Samantha Yokum NUTRITION INTERN Other general medical examination for administrative purposes Back spasm 724.8 Active Christ Fishman PA Other symptoms referable to back Easy bruising 782.9 Active Christ PEDERSEN Other symptoms involving skin and integumentary tissues Otitis externa, acute, right 380.12 Active Jenae Arce NUTRITION INTERN Acute swimmers' ear PHARYNGITIS, ACUTE, SEVERE ICD-462 Inactive Christ Fishman PA UPPER RESPIRATORY INFECTION, ACUTE ICD-465.9 Inactive Christ Fishman PA PHARYNGITIS ICD-462 Inactive Christ Fishman PA CONJUNCTIVITIS ICD-372.30 Inactive Christ Fishman PA Viral syndrome ICD-079.99 Inactive Christ Fishman PA Hematuria ICD-599.70 Inactive Christ Fishman PA 09/15 UTI ICD-599.0 Inactive Christ Harms PA Fever of unknown origin ICD-780.60 Inactive Samantha Yokum NUTRITION INTERN Acute pharyngitis ICD-462 Inactive Samantha Yokum NUTRITION INTERN Upper respiratory infection ICD-465.9 Inactive Samantha Yokum NUTRITION INTERN Allergic reaction ICD-995.3 Inactive Samantha Yokum NUTRITION INTERN Dysuria ICD-788.1 Inactive Samantha Yokum NUTRITION INTERN 02/08 Microscopic hematuria ICD-599.72 Inactive Samantha Yokum NUTRITION INTERN Hematuria ICD-599.70 Inactive Samantha Yokum NUTRITION INTERN Muscle spasm ICD-728.85 Inactive Samantha Yokum NUTRITION INTERN Easy bruising ICD-782.9 Inactive Samantha Yokum NUTRITION INTERN Medication List Medication Instructions Start Date Stop Date Generic Name NDC Status Provider Patient Instruction CORTISPORIN 3.5-83703-9 SOLN 4gtts in affected ear QID x 7 days [id number] Active Jillina Frazell NUTRITION INTERN Active CEPHALEXIN 500 MG CAPS 1 tablet by mouth four times daily CEPHALEXIN 27220994725 No Longer Active Christ Harms PA Active CLARITIN 10 MG TAB 1 tablet by mouth daily as needed for allergies LORATADINE 00573656271 No Longer Active Christ Harms PA Active HYDROCORTISONE 1 % CREA apply 3 to 4 times per day HYDROCORTISONE 09490152073 No Longer Active Christ Harms PA Active AZITHROMYCIN 500 MG TABS 1 tablet PO daily x 6 days AZITHROMYCIN 96404126468 No Longer Active Christ Kye PA Active ZITHROMAX 250 MG TAB 2 po today, then 1 po q days 2-5 AZITHROMYCIN 22014430497 No Longer Active Christ Harms PA Active AMOXICILLIN 500 MG CAP 1 tab by mouth 3 times daily x 10 days AMOXICILLIN 71968758235 No Longer Active Christ Kye PA Active GENTAMICIN SULFATE 0.3 % SOLN 3 gtt OU tid x 7 d GENTAMICIN SULFATE 28325897289 No Longer Active Sanket PEDERSEN Active AMOXICILLIN 500 MG TABS 2 PO bid x 7 d AMOXICILLIN 74629489439 No Longer Active Sanket PEDERSEN Active CLARITIN 10 MG CAPS 1qd LORATADINE 27915364193 No Longer Active Sanket PEDERSEN Active ZITHROMAX 250 MG TAB 2 po today, then 1 po q days 2-5 AZITHROMYCIN 78255753909 No Longer Active Christ Kye PA Active AMOXICILLIN 500 MG CAP 1 tab by mouth 3 times daily x 10 days AMOXICILLIN 72298699878 No Longer Active Christ Harms PA Active AMOXICILLIN 500 MG CAP 1 tab by mouth 3 times daily x 10 days AMOXICILLIN 500 MG CAP 380241 AMOXICILLIN Inactive CLARITIN 10 MG CAPS 1qd CLARITIN 10 MG CAPS LORATADINE Inactive AMOXICILLIN 500 MG CAP 1 tab by mouth 3 times daily x 10 days AMOXICILLIN 500 MG CAP 514501 AMOXICILLIN Inactive AZITHROMYCIN 500 MG TABS 1 tablet PO daily x 6 days AZITHROMYCIN 500 MG TABS 0883017 AZITHROMYCIN Inactive HYDROCORTISONE 1 % CREA apply 3 to 4 times per day HYDROCORTISONE 1 % CREA 363660 HYDROCORTISONE Inactive CLARITIN 10 MG TAB 1 tablet by mouth daily as needed for allergies CLARITIN 10 MG TAB 323747 LORATADINE Inactive CEPHALEXIN 500 MG CAPS 1 tablet by mouth four times daily CEPHALEXIN 500 MG CAPS 462226 CEPHALEXIN Inactive ZITHROMAX 250 MG TAB 2 po today, then 1 po q days 2-5 ZITHROMAX 250 MG TAB 0349684 AZITHROMYCIN Inactive AMOXICILLIN 500 MG TABS 2 PO bid x 7 d AMOXICILLIN 500 MG TABS 818653 AMOXICILLIN Inactive GENTAMICIN SULFATE 0.3 % SOLN 3 gtt OU tid x 7 d GENTAMICIN SULFATE 0.3 % SOLN 905728 GENTAMICIN SULFATE Inactive ZITHROMAX 250 MG TAB 2 po today, then 1 po q days 2-5 ZITHROMAX 250 MG TAB 2268604 AZITHROMYCIN Inactive Vital Signs Date Name Value Unit Range Description blood pressure, diastolic - 8462-4 75 mm[Hg] BP buchanan blood pressure, systolic - 8480-6 127 mm[Hg] BP sys pulse rate E&M - 8867-4 75 /min Heart rate temperature E&M 98.7 [degF] Body temperature weight E&M - 3141-9 190 [lb_av] Weight Measured blood pressure, diastolic - 8462-4 60 mm[Hg] BP buchanan blood pressure, systolic - 8480-6 98 mm[Hg] BP sys pulse rate E&M - 8867-4 84 /min Heart rate temperature E&M 98.0 [degF] Body temperature weight E&M - 3141-9 174 [lb_av] Weight Measured Diagnostic Results Date Name Value Unit Range Description Lab Report: CBC W/DIFF, UADIP W/MICRO, AUTO - Chemistry protein, total urine random Negative mg/dL Negative RBC, urine, dipstick 1+ Negative Lab Report: CBC W/DIFF, UADIP W/MICRO, AUTO - Hematology hemoglobin, blood 13.3 g/dL 12.0-16.0 hematocrit, blood 38.9 % 36.0-46.0 mean corpuscular volume, RBC 87 fL 80-97 mean corpuscular hemoglobin, RBC 29.9 pg 27.0-31.2 mean corpuscular hemoglobin concentration, RBC 34.3 G/DL % 31.8- 35.4 red blood cell distribution width 13.8 % 11.6-14.8 platelet count 238 10^3/MM^3 10*3/mm3 673-375 8319/10/26 erythrocyte (RBC) count 4.46 10^6/MM^3 10*6/mm3 4.04-5.48 lymphocytes as percent of blood leukocytes 29.2 % 20.5-51.1 monocytes as percent of blood leukocytes 7.5 % 1.7-9.3 neutrophils as percent of blood leukocytes 59.1 % 42.2-75.2 leukocyte count, blood 8.1 10^3/MM^3 10*3/mm3 4.6-10.2 Lab Report: CBC W/DIFF, UADIP W/MICRO, AUTO - Urinalysis urine color Yellow Colorless;Lightyellow;Straw;Yellow appearance, urine Clear Clear specific gravity, urine 1.025 1.000-1.030 pH, urine, semiquantitative 5.5 5.0-8.5 urobilinogen, urine, semiquantitative (dipstick) 0.2 Normal leukocyte esterase, urine, by dipstick Negative Negative nitrite, urine, semiquantitative Negative Negative urate crystals, amorphous, urine, semiquantitative Large None seen glucose, urine, semiquantitative Negative Negative ketones, urine, by test strip Negative Negative bilirubin, urine Negative Negative Encounters Code Encounter Date Provider Facility CPT-89898 Level 3 Est. Patient 14:20:20 CDT Jenae Arce APRN [facility] CPT-66622 Level 4 Est. Patient 07:31:22 CDT Christ PEDERSEN [facility] CPT-25007 Level 3 Est. Patient 15:20:00 CDT Samantha Mccarthy APRN [facility] CPT-14969 Level 3 Est. Patient 07:02:29 CDT Christ PEDERSEN [facility] CPT-71943 Level 4 Est. Patient 07:58:02 CDT Christ PEDERSEN [facility] CPT-57626 Level 3 New Patient 16:50:18 CDT Charla Hammond MD [facility] CPT-93128 Level 3 Est. Patient 07:06:47 CDT Christ PEDERSEN [facility] CPT-28714 Level 3 Est. Patient 13:03:14 CDT Christ PEDERSEN [facility] CPT-90956 Level 3 Est. Patient 09:44:05 CDT Sanket Angel [facility] CPT-27559 Level 3 New Patient 14:13:26 CDT Christ PEDERSEN [facility] CPT-21441 Level 3 New Patient 08:42:00 CDT Christ PEDERSEN [facility] CPT-49738 Level 3 Est. Patient 06:15:09 PSYCHOLOGY LECTURER Christ PEDERSEN [facility] CPT-87907 Level 3 Est. Patient 14:32:02 CDT Christ PEDERSEN [facility] CPT-06512 Level 3 Est. Patient 13:55:47 CDT Sanket Angel [facility] CPT-85164 Level 3 Est. Patient 07:36:37 PSYCHOLOGY LECTURER Christ PEDERSEN [facility] CPT-93220 Level 3 Est. Patient 10:35:07 CDT Christ PEDERSEN [facility] Procedures Code Procedure Name Date Entry Date Standard Description CPT-39841 Venipuncture Draw Fee 16:34:16 CDT CPT-94924 Venipuncture Draw Fee 08:59:46 CDT CPT-60848 Venipuncture Draw Fee 16:02:00 CDT CPT-82945 Urine Dip (Floor Use Only) 16:50:18 CDT CPT-67604 Abd single AP View 09:49:22 CDT CPT-24584 Venipuncture Draw Fee 14:15:28 CDT CPT-11340 Rapid Strep -(Floor Use Only) 10:04:18 CDT CPT-50988 Venipuncture Draw Fee 10:04:18 CDT CPT-62671 Venipuncture Draw Fee 09:53:28 PSYCHOLOGY LECTURER CPT-32211 Rapid Strep -(Floor Use Only) 14:32:02 CDT CPT-93414 Influenza (Floor Use Only) 15:34:29 PSYCHOLOGY LECTURER CPT-68892 Rapid Strep -(Floor Use Only) 10:48:21 CDT CPT-45376 Venipuncture Draw Fee 10:48:21 CDT
--- OUTSIDE RECORDS SUMMARY | 2017-06-14 05:29 | XMS REPORT | Clinical Summary ---
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 Conditions or Problems Problem Name Problem Code [...] of unknown origin 780.60 Resolved Samantha Yokum LOSS PREVENTION CONSULTANT Fever, unspecified Acute pharyngitis 462 Resolved Samantha Yokum LOSS PREVENTION CONSULTANT Acute pharyngitis Upper respiratory infection 465.9 Resolved Samantha Yokum LOSS PREVENTION CONSULTANT Acute upper respiratory infections of unspecified site Allergic reaction 995.3 Resolved Samantha Yokum LOSS PREVENTION CONSULTANT Allergy, unspecified, not elsewhere classified Dysuria 788.1 Resolved Samantha Yokum LOSS PREVENTION CONSULTANT Dysuria Family history of renal disease V18.69 Active Christ PEDERSEN Family history of other kidney diseases Renal calculus, hx of V13.01 Active Christ PEDERSEN Personal history of urinary calculi Microscopic hematuria 599.72 Resolved Samantha Yokum LOSS PREVENTION CONSULTANT Microscopic hematuria Hematuria 599.70 Resolved Samantha Yokum LOSS PREVENTION CONSULTANT Hematuria, unspecified Muscle spasm 728.85 Resolved Samantha Yokum LOSS PREVENTION CONSULTANT Spasm of muscle Easy bruising 782.9 Resolved Samantha Yokum LOSS PREVENTION CONSULTANT Other symptoms involving skin and integumentary tissues Athletic physical, normal V70.3 Active Samantha Teresaum LOSS PREVENTION CONSULTANT Other general medical examination for administrative purposes Back spasm 724.8 Active Christ PEDERSEN Other symptoms referable to back Easy bruising 782.9 Active Christ PEDERSEN Other symptoms involving skin and integumentary tissues Otitis externa, acute, right 380.12 Active Jenae Arce LOSS PREVENTION CONSULTANT Acute swimmers' ear Depression with anxiety 300.4 Active Jennifer Mendez LOSS PREVENTION CONSULTANT Dysthymic disorder PHARYNGITIS, ACUTE, SEVERE ICD-462 Inactive Christ PEDERSEN UPPER RESPIRATORY INFECTION, ACUTE ICD-465.9 Inactive Christ PEDERSEN PHARYNGITIS ICD-462 Inactive Christ PEDERSEN CONJUNCTIVITIS ICD-372.30 Inactive Christ PEDERSEN Viral syndrome ICD-079.99 Inactive Christ PEDERSEN Hematuria ICD-599.70 Inactive Christ Kye PA 09/15 UTI ICD-599.0 Inactive Christ Kye PEDERSEN Fever of unknown origin ICD-780.60 Inactive Samantha Yokum LOSS PREVENTION CONSULTANT Acute pharyngitis ICD-462 Inactive Samantha Yokum LOSS PREVENTION CONSULTANT Upper respiratory infection ICD-465.9 Inactive Samantha Yokum LOSS PREVENTION CONSULTANT Allergic reaction ICD-995.3 Inactive Samantha Yokum LOSS PREVENTION CONSULTANT Dysuria ICD-788.1 Inactive Samantha Yokum LOSS PREVENTION CONSULTANT 02/08 Microscopic hematuria ICD-599.72 Inactive Samantha Yokum LOSS PREVENTION CONSULTANT Hematuria ICD-599.70 Inactive Samantha Yokum LOSS PREVENTION CONSULTANT Muscle spasm ICD-728.85 Inactive Samantha Yokum LOSS PREVENTION CONSULTANT Easy bruising ICD-782.9 Inactive Samantha Yokum LOSS PREVENTION CONSULTANT Medication List Medication Instructions Start Date Stop Date Generic Name NDC Status Provider Patient Instruction PAROXETINE HCL 10 MG TABS 1 daily for depression/anxiety PAROXETINE HCL 85504913777 Active Jennifer Mendez LOSS PREVENTION CONSULTANT Active CORTISPORIN 3.5-69591-3 SOLN 4gtts in affected ear QID x 7 days [id number] 44196702780 No Longer Active Soo Muse MOTORCYCLE BUILDER Active CEPHALEXIN 500 MG CAPS 1 tablet by mouth four times daily CEPHALEXIN 51307135788 No Longer Active Christ PEDERSEN Active CLARITIN 10 MG TAB 1 tablet by mouth daily as needed for allergies LORATADINE 50198769786 No Longer Active Christ Harms PA Active HYDROCORTISONE 1 % CREA apply 3 to 4 times per day HYDROCORTISONE 66971565163 No Longer Active Christ Harms PA Active AZITHROMYCIN 500 MG TABS 1 tablet PO daily x 6 days AZITHROMYCIN 84264310629 No Longer Active Christ Harms PA Active ZITHROMAX 250 MG TAB 2 po today, then 1 po q days 2-5 AZITHROMYCIN 34825934816 No Longer Active Christ Harms PA Active AMOXICILLIN 500 MG CAP 1 tab by mouth 3 times daily x 10 days AMOXICILLIN 18068070372 No Longer Active Christ Harms PA Active GENTAMICIN SULFATE 0.3 % SOLN 3 gtt OU tid x 7 d GENTAMICIN SULFATE 20890302027 No Longer Active Sanket PEDERSEN Active AMOXICILLIN 500 MG TABS 2 PO bid x 7 d AMOXICILLIN 63153490671 No Longer Active Sanket PEDERSEN Active CLARITIN 10 MG CAPS 1qd LORATADINE 24833555645 No Longer Active Sanket PEDERSEN Active ZITHROMAX 250 MG TAB 2 po today, then 1 po q days 2-5 AZITHROMYCIN 47535629709 No Longer Active Christ Harms PA Active AMOXICILLIN 500 MG CAP 1 tab by mouth 3 times daily x 10 days AMOXICILLIN 25394469887 No Longer Active Christ Harms PA Active AMOXICILLIN 500 MG CAP 1 tab by mouth 3 times daily x 10 days AMOXICILLIN 500 MG CAP 781569 AMOXICILLIN Inactive CLARITIN 10 MG CAPS 1qd CLARITIN 10 MG CAPS 668312 LORATADINE Inactive AMOXICILLIN 500 MG CAP 1 tab by mouth 3 times daily x 10 days AMOXICILLIN 500 MG CAP 153104 AMOXICILLIN Inactive AZITHROMYCIN 500 MG TABS 1 tablet PO daily x 6 days AZITHROMYCIN 500 MG TABS 1800346 AZITHROMYCIN Inactive HYDROCORTISONE 1 % CREA apply 3 to 4 times per day HYDROCORTISONE 1 % CREA 215932 HYDROCORTISONE Inactive CLARITIN 10 MG TAB 1 tablet by mouth daily as needed for allergies CLARITIN 10 MG TAB 091431 LORATADINE Inactive CEPHALEXIN 500 MG CAPS 1 tablet by mouth four times daily CEPHALEXIN 500 MG CAPS 950816 CEPHALEXIN Inactive CORTISPORIN 3.5-96342-2 SOLN 4gtts in affected ear QID x 7 days CORTISPORIN 3.5-05185-6 SOLN 947412 [id number] Inactive ZITHROMAX 250 MG TAB 2 po today, then 1 po q days 2-5 ZITHROMAX 250 MG TAB 4151472 AZITHROMYCIN Inactive AMOXICILLIN 500 MG TABS 2 PO bid x 7 d AMOXICILLIN 500 MG TABS 527289 AMOXICILLIN Inactive GENTAMICIN SULFATE 0.3 % SOLN 3 gtt OU tid x 7 d GENTAMICIN SULFATE 0.3 % SOLN 088523 GENTAMICIN SULFATE Inactive ZITHROMAX 250 MG TAB 2 po today, then 1 po q days 2-5 ZITHROMAX 250 MG TAB 4011379 AZITHROMYCIN Inactive Vital Signs Date Name Value [...] Measured Encounters Code Encounter Date Provider Facility CPT-35943 Level 3 Est. Patient 15:12:20 CDT Jennifer Mendez [facility] CPT-88143 Level 3 Est. Patient 14:20:20 CDT Jenae Arce [facility] CPT-16983 Level 4 Est. Patient 07:31:22 CDT Christ Fishman [facility] CPT-86690 Level 3 Est. Patient 15:20:00 CDT Samantha Mccarthy [facility] CPT-68807 Level 3 Est. Patient 07:02:29 CDT Christ Fishman [facility] CPT-41561 Level 4 Est. Patient 07:58:02 CDT Christ Fishman [facility] CPT-86389 Level 3 New Patient 16:50:18 CDT Charla Hammond MD [facility] CPT-68836 Level 3 Est. Patient 07:06:47 CDT Christ Fishman [facility] CPT-10440 Level 3 Est. Patient 13:03:14 CDT Christ Fishman [facility] CPT-38863 Level 3 Est. Patient 09:44:05 CDT Sanket Angel [facility] CPT-11214 Level 3 New Patient 14:13:26 CDT Christ Fishman [facility] CPT-12929 Level 3 New Patient 08:42:00 CDT Christ PEDERSEN [facility] CPT-52001 Level 3 Est. Patient 06:15:09 GLASS GRINDER Christ PEDERSEN [facility] CPT-08272 Level 3 Est. Patient 14:32:02 CDT Christ Fishman [facility] CPT-16505 Level 3 Est. Patient 13:55:47 CDT Sanket Angel [facility] CPT-30841 Level 3 Est. Patient 07:36:37 GLASS GRINDER Christ PEDERSEN [facility] CPT-29274 Level 3 Est. Patient 10:35:07 CDT Christ Fishman [facility] Procedures Code Procedure Name Date Entry Date Standard Description CPT-42226 Venipuncture Draw Fee 16:34:16 CDT CPT-98841 Venipuncture Draw Fee 08:59:46 CDT CPT-53364 Venipuncture Draw Fee 16:02:00 CDT CPT-88359 Urine Dip (Floor Use Only) 16:50:18 CDT CPT-72614 Abd single AP View 09:49:22 CDT CPT-44571 Venipuncture Draw Fee 14:15:28 CDT CPT-80862 Rapid Strep -(Floor Use Only) 10:04:18 CDT CPT-40466 Venipuncture Draw Fee 10:04:18 CDT CPT-92716 Venipuncture Draw Fee 09:53:28 GLASS GRINDER CPT-56233 Rapid Strep -(Floor Use Only) 14:32:02 CDT CPT-01567 Influenza (Floor Use Only) 15:34:29 GLASS GRINDER CPT-42193 Rapid Strep -(Floor Use Only) 10:48:21 CDT CPT-49287 Venipuncture Draw Fee 10:48:21 CDT
[2017-06-14] MEDS ORDERED: KETOROLAC 30 MG/ML VIAL IVP ONE (05:30)
[2017-06-14] MEDS ORDERED: ONDANSETRON 4 MG (ZOFRAN) ORAL DISSOLVE TAB PO ONE (05:30)
--- OUTSIDE RECORDS SUMMARY | 2017-06-14 05:30 | XMS REPORT | Clinical Summary ---
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 Conditions or Problems Problem Name Problem Code [...] of unknown origin 780.60 Resolved Samantha Yokum LOAN OPERATIONS MANAGER Fever, unspecified Acute pharyngitis 462 Resolved Samantha Yokum LOAN OPERATIONS MANAGER Acute pharyngitis Upper respiratory infection 465.9 Resolved Samantha Yokum LOAN OPERATIONS MANAGER Acute upper respiratory infections of unspecified site Allergic reaction 995.3 Resolved Samantha Yokum LOAN OPERATIONS MANAGER Allergy, unspecified, not elsewhere classified Dysuria 788.1 Resolved Samantha Yokum LOAN OPERATIONS MANAGER Dysuria Family history of renal disease V18.69 Active Christ PEDERSEN Family history of other kidney diseases Renal calculus, hx of V13.01 Active Christ PEDERSEN Personal history of urinary calculi Microscopic hematuria 599.72 Resolved Samantha Yokum LOAN OPERATIONS MANAGER Microscopic hematuria Hematuria 599.70 Resolved Samantha Yokum LOAN OPERATIONS MANAGER Hematuria, unspecified Muscle spasm 728.85 Resolved Samantha Yokum LOAN OPERATIONS MANAGER Spasm of muscle Easy bruising 782.9 Resolved Samantha Yokum LOAN OPERATIONS MANAGER Other symptoms involving skin and integumentary tissues Athletic physical, normal V70.3 Active Samantha Yokum LOAN OPERATIONS MANAGER Other general medical examination for administrative purposes Back spasm 724.8 Active Christ PEDERSEN Other symptoms referable to back Easy bruising 782.9 Active Christ PEDERSEN Other symptoms involving skin and integumentary tissues Otitis externa, acute, right 380.12 Active Jenae Arce LOAN OPERATIONS MANAGER Acute swimmers' ear PHARYNGITIS, ACUTE, SEVERE ICD-462 Inactive Christ PEDERSEN UPPER RESPIRATORY INFECTION, ACUTE ICD-465.9 Inactive Christ PEDERSEN PHARYNGITIS ICD-462 Inactive Christ PEDERSEN CONJUNCTIVITIS ICD-372.30 Inactive Christ Fishman PA Viral syndrome ICD-079.99 Inactive Christ Fishman PA Hematuria ICD-599.70 Inactive Christ Fishman PA 09/15 UTI ICD-599.0 Inactive Christ Harms PA Fever of unknown origin ICD-780.60 Inactive Samantha Yokum LOAN OPERATIONS MANAGER Acute pharyngitis ICD-462 Inactive Samantha Yokum LOAN OPERATIONS MANAGER Upper respiratory infection ICD-465.9 Inactive Samantha Yokum LOAN OPERATIONS MANAGER Allergic reaction ICD-995.3 Inactive Samantha Yokum LOAN OPERATIONS MANAGER Dysuria ICD-788.1 Inactive Samantha Yokum LOAN OPERATIONS MANAGER 02/08 Microscopic hematuria ICD-599.72 Inactive Samantha Yokum LOAN OPERATIONS MANAGER Hematuria ICD-599.70 Inactive Samantha Yokum LOAN OPERATIONS MANAGER Muscle spasm ICD-728.85 Inactive Samantha Yokum LOAN OPERATIONS MANAGER Easy bruising ICD-782.9 Inactive Samantha Yokum LOAN OPERATIONS MANAGER Medication List Medication Instructions Start Date Stop Date Generic Name NDC Status Provider Patient Instruction CORTISPORIN 3.5-07438-1 SOLN 4gtts in affected ear QID x 7 days [id number] 94603184534 Active Jillina Frazell LOAN OPERATIONS MANAGER Active CEPHALEXIN 500 MG CAPS 1 tablet by mouth four times daily CEPHALEXIN 98692436691 No Longer Active Christ Harms PA Active CLARITIN 10 MG TAB 1 tablet by mouth daily as needed for allergies LORATADINE 89385357544 No Longer Active Christ Harms PA Active HYDROCORTISONE 1 % CREA apply 3 to 4 times per day HYDROCORTISONE 28355170312 No Longer Active Christ Harms PA Active AZITHROMYCIN 500 MG TABS 1 tablet PO daily x 6 days AZITHROMYCIN 73802522819 No Longer Active Christ Harms PA Active ZITHROMAX 250 MG TAB 2 po today, then 1 po q days 2-5 AZITHROMYCIN 27072364357 No Longer Active Chrsit Harms PA Active AMOXICILLIN 500 MG CAP 1 tab by mouth 3 times daily x 10 days AMOXICILLIN 41315610968 No Longer Active Christ Kye PA Active GENTAMICIN SULFATE 0.3 % SOLN 3 gtt OU tid x 7 d GENTAMICIN SULFATE 80460673231 No Longer Active Sanket PEDERSEN Active AMOXICILLIN 500 MG TABS 2 PO bid x 7 d AMOXICILLIN 77961188448 No Longer Active Sanket PEDERSEN Active CLARITIN 10 MG CAPS 1qd LORATADINE 08743305474 No Longer Active Sanket PEDERSEN Active ZITHROMAX 250 MG TAB 2 po today, then 1 po q days 2-5 AZITHROMYCIN 77119581849 No Longer Active Christ Harms PA Active AMOXICILLIN 500 MG CAP 1 tab by mouth 3 times daily x 10 days AMOXICILLIN 98748729722 No Longer Active Christ Harms PA Active AMOXICILLIN 500 MG CAP 1 tab by mouth 3 times daily x 10 days AMOXICILLIN 500 MG CAP 921571 AMOXICILLIN Inactive CLARITIN 10 MG CAPS 1qd CLARITIN 10 MG CAPS LORATADINE Inactive AMOXICILLIN 500 MG CAP 1 tab by mouth 3 times daily x 10 days AMOXICILLIN 500 MG CAP 434665 AMOXICILLIN Inactive AZITHROMYCIN 500 MG TABS 1 tablet PO daily x 6 days AZITHROMYCIN 500 MG TABS 5793205 AZITHROMYCIN Inactive HYDROCORTISONE 1 % CREA apply 3 to 4 times per day HYDROCORTISONE 1 % CREA 505273 HYDROCORTISONE Inactive CLARITIN 10 MG TAB 1 tablet by mouth daily as needed for allergies CLARITIN 10 MG TAB 444135 LORATADINE Inactive CEPHALEXIN 500 MG CAPS 1 tablet by mouth four times daily CEPHALEXIN 500 MG CAPS 533554 CEPHALEXIN Inactive ZITHROMAX 250 MG TAB 2 po today, then 1 po q days 2-5 ZITHROMAX 250 MG TAB 9598348 AZITHROMYCIN Inactive AMOXICILLIN 500 MG TABS 2 PO bid x 7 d AMOXICILLIN 500 MG TABS 340337 AMOXICILLIN Inactive GENTAMICIN SULFATE 0.3 % SOLN 3 gtt OU tid x 7 d GENTAMICIN SULFATE 0.3 % SOLN 683250 GENTAMICIN SULFATE Inactive ZITHROMAX 250 MG TAB 2 po today, then 1 po q days 2-5 ZITHROMAX 250 MG TAB 5658090 AZITHROMYCIN Inactive Vital Signs Date Name Value [...] CBC W/DIFF, UADIP W/MICRO, AUTO - Hematology leukocyte count, blood 8.1 10^3/MM^3 10*3/mm3 4.6-10.2 neutrophils as percent of blood leukocytes 59.1 % 42.2-75.2 monocytes as percent of blood leukocytes 7.5 % 1.7-9.3 lymphocytes as percent of blood leukocytes 29.2 % 20.5-51.1 erythrocyte (RBC) count 4.46 10^6/MM^3 10*6/mm3 4.04-5.48 hemoglobin, blood 13.3 g/dL 12.0-16.0 hematocrit, blood 38.9 % 36.0-46.0 mean corpuscular volume, RBC 87 fL 80-97 mean corpuscular hemoglobin, RBC 29.9 pg 27.0-31.2 mean corpuscular hemoglobin concentration, RBC 34.3 G/DL % 31.8- 35.4 red blood cell distribution width 13.8 % 11.6-14.8 platelet count 238 10^3/MM^3 10*3/mm3 142-424 Lab Report: CBC W/DIFF, UADIP W/MICRO, AUTO [...] Negative Encounters Code Encounter Date Provider Facility CPT-63160 Level 3 Est. Patient 14:20:20 CDT Jenae Arce APRN [facility] CPT-47536 Level 4 Est. Patient 07:31:22 CDT Christ PEDERSEN [facility] CPT-03469 Level 3 Est. Patient 15:20:00 CDT Samantha Mccarthy APRN [facility] [place] [facility] CPT-54809 Level 3 Est. Patient 07:02:29 CDT Christ PEDERSEN [facility] CPT-76610 Level 4 Est. Patient 07:58:02 CDT Christ PEDERSEN [facility] CPT-98425 Level 3 New Patient 16:50:18 CDT Charla Hammond MD [facility] CPT-49593 Level 3 Est. Patient 07:06:47 CDT Christ PEDERSEN [facility] CPT-66408 Level 3 Est. Patient 13:03:14 CDT Christ PEDERSEN [facility] CPT-14827 Level 3 Est. Patient 09:44:05 CDT Sanket Angel [facility] CPT-29295 Level 3 New Patient 14:13:26 CDT Christ PEDERSEN [facility] CPT-06181 Level 3 New Patient 08:42:00 CDT Christ PEDERSEN [facility] [place] CPT-82036 Level 3 Est. Patient 06:15:09 PROJECT MANAGER RETAIL Christ PEDERSEN [facility] CPT-66454 Level 3 Est. Patient 14:32:02 CDT Christ PEDERSEN [facility] CPT-73634 Level 3 Est. Patient 13:55:47 CDT Sanket Angel [facility] CPT-34337 Level 3 Est. Patient 07:36:37 PROJECT MANAGER RETAIL Christ PEDERSEN [facility] CPT-17903 Level 3 Est. Patient 10:35:07 CDT Christ PEDERSEN [facility] Procedures Code Procedure Name Date Entry Date Standard Description CPT-57669 Venipuncture Draw Fee 16:34:16 CDT CPT-16814 Venipuncture Draw Fee 08:59:46 CDT CPT-23579 Venipuncture Draw Fee 16:02:00 CDT CPT-07955 Urine Dip (Floor Use Only) 16:50:18 CDT CPT-40188 Abd single AP View 09:49:22 CDT CPT-60454 Venipuncture Draw Fee 14:15:28 CDT CPT-58272 Rapid Strep -(Floor Use Only) 10:04:18 CDT CPT-77871 Venipuncture Draw Fee 10:04:18 CDT CPT-97625 Venipuncture Draw Fee 09:53:28 PROJECT MANAGER RETAIL CPT-03134 Rapid Strep -(Floor Use Only) 14:32:02 CDT CPT-81504 Influenza (Floor Use Only) 15:34:29 PROJECT MANAGER RETAIL CPT-50673 Rapid Strep -(Floor Use Only) 10:48:21 CDT CPT-75800 Venipuncture Draw Fee 10:48:21 CDT
--- OUTSIDE RECORDS SUMMARY | 2017-06-14 05:30 | XMS REPORT | Clinical Summary ---
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 Conditions or Problems Problem Name Problem Code [...] of unknown origin 780.60 Resolved Samantha Yokum ESCORT PATIENTS Fever, unspecified Acute pharyngitis 462 Resolved Samantha Yokum ESCORT PATIENTS Acute pharyngitis Upper respiratory infection 465.9 Resolved Samantha Yokum ESCORT PATIENTS Acute upper respiratory infections of unspecified site Allergic reaction 995.3 Resolved Samantha Yokum ESCORT PATIENTS Allergy, unspecified, not elsewhere classified Dysuria 788.1 Resolved Samantha Yokum ESCORT PATIENTS Dysuria Family history of renal disease V18.69 Active Christ PEDERSEN Family history of other kidney diseases Renal calculus, hx of V13.01 Resolved Jennifer Mendez APRN Personal history of urinary calculi Microscopic hematuria 599.72 Resolved Samantha Yokum ESCORT PATIENTS Microscopic hematuria Hematuria 599.70 Resolved Samantha Yokum ESCORT PATIENTS Hematuria, unspecified Muscle spasm 728.85 Resolved Samantha Yokum ESCORT PATIENTS Spasm of muscle Easy bruising 782.9 Resolved Samantha Yokum ESCORT PATIENTS Other symptoms involving skin and integumentary tissues Athletic physical, normal V70.3 Active Samantha Fabio ARTN Other general medical examination for administrative purposes Back spasm 724.8 Active Christ PEDERSEN Other symptoms referable to back Easy bruising 782.9 Active Chrits PEDERSEN Other symptoms involving skin and integumentary tissues Otitis externa, acute, right 380.12 Active Jenae Arce ESCORT PATIENTS Acute swimmers' ear Depression with anxiety 300.4 [...] of unknown origin ICD-780.60 Inactive Samantha Yokum ESCORT PATIENTS Acute pharyngitis ICD-462 Inactive Samantha Yokum ESCORT PATIENTS Upper respiratory infection ICD-465.9 Inactive Samantha Yokum ESCORT PATIENTS Allergic reaction ICD-995.3 Inactive Samantha Yokum ESCORT PATIENTS Dysuria ICD-788.1 Inactive Samantha Yokum ESCORT PATIENTS 02/08 Renal calculus, hx of ICD-V13.01 Inactive Jennifer Mendez ESCORT PATIENTS Microscopic hematuria ICD-599.72 Inactive Samantha Yokum ESCORT PATIENTS Hematuria ICD-599.70 Inactive Samantha Yokum ESCORT PATIENTS Muscle spasm ICD-728.85 Inactive Samantha Yokum ESCORT PATIENTS Easy bruising ICD-782.9 Inactive Samantha Yokum ESCORT PATIENTS Medication List Medication Instructions Start Date Stop Date Generic Name NDC Status Provider Patient Instruction PAXIL 20 MG ORAL TABS 1 tab daily PAROXETINE HCL 45095678433 Active Soo Martell SWIMMING POOL SERVICE TECHNICIAN Active CORTISPORIN 3.5-75633-2 SOLN 4gtts in affected ear QID x 7 days [id number] 10806139827 No Longer Active Soo Martell SWIMMING POOL SERVICE TECHNICIAN Active CEPHALEXIN 500 MG CAPS 1 tablet by mouth four times daily CEPHALEXIN 39345067559 No Longer Active Christ Harms PA Active CLARITIN 10 MG TAB 1 tablet by mouth daily as needed for allergies LORATADINE 80017645933 No Longer Active Christ Harms PA Active HYDROCORTISONE 1 % CREA apply 3 to 4 times per day HYDROCORTISONE 29308312068 No Longer Active Christ Harms PA Active AZITHROMYCIN 500 MG TABS 1 tablet PO daily x 6 days AZITHROMYCIN 29681349620 No Longer Active Christ Harms PA Active ZITHROMAX 250 MG TAB 2 po today, then 1 po q days 2-5 AZITHROMYCIN 42012609825 No Longer Active Christ Harms PA Active AMOXICILLIN 500 MG CAP 1 tab by mouth 3 times daily x 10 days AMOXICILLIN 89159298495 No Longer Active Christ Harms PA Active GENTAMICIN SULFATE 0.3 % SOLN 3 gtt OU tid x 7 d GENTAMICIN SULFATE 72519722270 No Longer Active Sanket PEDERSEN Active AMOXICILLIN 500 MG TABS 2 PO bid x 7 d AMOXICILLIN 27214175723 No Longer Active Sanket Angel PA Active CLARITIN 10 MG CAPS 1qd LORATADINE 92709047712 No Longer Active Sanket PEDERSEN Active ZITHROMAX 250 MG TAB 2 po today, then 1 po q days 2-5 AZITHROMYCIN 32540081591 No Longer Active Christ Harms PA Active AMOXICILLIN 500 MG CAP 1 tab by mouth 3 times daily x 10 days AMOXICILLIN 19541652579 No Longer Active Christ Harms PA Active AMOXICILLIN 500 MG CAP 1 tab by mouth 3 times daily x 10 days AMOXICILLIN 500 MG CAP 843762 AMOXICILLIN Inactive CLARITIN 10 MG CAPS 1qd CLARITIN 10 MG CAPS 654012 LORATADINE Inactive AMOXICILLIN 500 MG CAP 1 tab by mouth 3 times daily x 10 days AMOXICILLIN 500 MG CAP 830322 AMOXICILLIN Inactive AZITHROMYCIN 500 MG TABS 1 tablet PO daily x 6 days AZITHROMYCIN 500 MG TABS 2664867 AZITHROMYCIN Inactive HYDROCORTISONE 1 % CREA apply 3 to 4 times per day HYDROCORTISONE 1 % CREA 949768 HYDROCORTISONE Inactive CLARITIN 10 MG TAB 1 tablet by mouth daily as needed for allergies CLARITIN 10 MG TAB 966528 LORATADINE Inactive CEPHALEXIN 500 MG CAPS 1 tablet by mouth four times daily CEPHALEXIN 500 MG CAPS 594697 CEPHALEXIN Inactive CORTISPORIN 3.5-39617-7 SOLN 4gtts in affected ear QID x 7 days CORTISPORIN 3.5-97903-1 SOLN 675909 [id number] Inactive ZITHROMAX 250 MG TAB 2 po today, then 1 po q days 2-5 ZITHROMAX 250 MG TAB 3030898 AZITHROMYCIN Inactive AMOXICILLIN 500 MG TABS 2 PO bid x 7 d AMOXICILLIN 500 MG TABS 093008 AMOXICILLIN Inactive GENTAMICIN SULFATE 0.3 % SOLN 3 gtt OU tid x 7 d GENTAMICIN SULFATE 0.3 % SOLN 480423 GENTAMICIN SULFATE Inactive ZITHROMAX 250 MG TAB 2 po today, then 1 po q days 2-5 ZITHROMAX 250 MG TAB 4057904 AZITHROMYCIN Inactive Vital Signs Date Name Value [...] Measured Encounters Code Encounter Date Provider Facility CPT-64537 Level 3 Est. Patient 10:58:20 CDT Jennifer Mendez [facility] CPT-66637 Level 3 Est. Patient 15:12:20 CDT Jennifer Mendez [facility] CPT-46927 Level 3 Est. Patient 14:20:20 CDT Jenae Arce [facility] CPT-48421 Level 4 Est. Patient 07:31:22 CDT Christ PEDERSEN [facility] CPT-71622 Level 3 Est. Patient 15:20:00 CDT Samantha Mccarthy [facility] CPT-80603 Level 3 Est. Patient 07:02:29 CDT Christ PEDERSEN [facility] CPT-27248 Level 4 Est. Patient 07:58:02 CDT Christ PEDERSEN [facility] CPT-42855 Level 3 New Patient 16:50:18 CDT Charla Hammond MD [facility] CPT-66016 Level 3 Est. Patient 07:06:47 CDT Christ PEDERSEN [facility] CPT-54695 Level 3 Est. Patient 13:03:14 CDT Christ PEDERSEN [facility] CPT-43699 Level 3 Est. Patient 09:44:05 CDT Sanket Angel [facility] CPT-18255 Level 3 New Patient 14:13:26 CDT Christ PEDERSEN [facility] CPT-76113 Level 3 New Patient 08:42:00 CDT Christ PEDERSEN [facility] CPT-69149 Level 3 Est. 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 Patient 14:32:02 CDT Christ PEDERSEN [facility] CPT-69232 Level 3 Est. Patient 13:55:47 CDT Sanket Angel [facility] CPT-52706 Level 3 Est. Patient 07:36:37 GAS LINE REPAIRER Christ PEDERSEN [facility] CPT-27923 Level 3 Est. Patient 10:35:07 CDT Christ PEDERSEN [facility] Procedures Code Procedure Name Date Entry Date Standard Description CPT-53570 Abd compl w upright - XRAY USE ONLY 11:08:53 CDT 01/11 CPT-36652 Venipuncture Draw Fee 16:34:16 CDT CPT-13169 Venipuncture Draw Fee 08:59:46 CDT CPT-84457 Venipuncture Draw Fee 16:02:00 CDT CPT-23825 Urine Dip (Floor Use Only) 16:50:18 CDT CPT-88213 Abd single AP View 09:49:22 CDT CPT-80784 Venipuncture Draw Fee 14:15:28 CDT CPT-43384 Rapid Strep -(Floor Use Only) 10:04:18 CDT CPT-18450 Venipuncture Draw Fee 10:04:18 CDT CPT-68388 Venipuncture Draw Fee 09:53:28 GAS LINE REPAIRER CPT-01427 Rapid Strep -(Floor Use Only) 14:32:02 CDT CPT-28477 Influenza (Floor Use Only) 15:34:29 GAS LINE REPAIRER CPT-19992 Rapid Strep -(Floor Use Only) 10:48:21 CDT CPT-36748 Venipuncture Draw Fee 10:48:21 CDT
--- OUTSIDE RECORDS SUMMARY | 2017-06-14 05:31 | XMS REPORT | Clinical Summary ---
Author Author Admin, LUISITO Organization [facility] Address Unknown [...] tablet by mouth four times daily CEPHALEXIN 20433401413 No Longer Active Christ Kye PEDERSEN Active CLARITIN 10 MG TAB 1 tablet by mouth daily as needed for allergies LORATADINE 96226072766 No Longer Active Christ Kye PEDERSEN Active HYDROCORTISONE 1 % CREA apply 3 to 4 times per day HYDROCORTISONE 89050388931 No Longer Active Christ Kye PEDERSEN Active AZITHROMYCIN 500 MG TABS 1 tablet PO daily x 6 days AZITHROMYCIN 72864742944 No Longer Active Christ Harms PA Active ZITHROMAX 250 MG TAB 2 po today, then 1 po q days 2-5 AZITHROMYCIN 95668684967 No Longer Active Christ Harms PA Active AMOXICILLIN 500 MG CAP 1 tab by mouth 3 times daily x 10 days AMOXICILLIN 99935804851 No Longer Active Christ Harms PA Active GENTAMICIN SULFATE 0.3 % SOLN 3 gtt OU tid x 7 d GENTAMICIN SULFATE 06460244999 No Longer Active Sanket PEDERSEN Active AMOXICILLIN 500 MG TABS 2 PO bid x 7 d AMOXICILLIN 11570509715 No Longer Active Sanket PEDERSEN Active CLARITIN 10 MG CAPS 1qd LORATADINE 53756920226 No Longer Active Sanket PEDERSEN Active ZITHROMAX 250 MG TAB 2 po today, then 1 po q days 2-5 AZITHROMYCIN 96244235809 No Longer Active Christ Harms PA Active AMOXICILLIN 500 MG CAP 1 tab by mouth 3 times daily x 10 days AMOXICILLIN 35851872088 No Longer Active Christ Harms PA Active AMOXICILLIN 500 MG CAP 1 tab by mouth 3 times daily x 10 days AMOXICILLIN 500 MG CAP 231812 AMOXICILLIN Inactive CLARITIN 10 MG CAPS 1qd CLARITIN 10 MG CAPS LORATADINE Inactive AMOXICILLIN 500 MG CAP 1 tab by mouth 3 times daily x 10 days AMOXICILLIN 500 MG CAP 473026 AMOXICILLIN Inactive AZITHROMYCIN 500 MG TABS 1 tablet PO daily x 6 days AZITHROMYCIN 500 MG TABS 8509626 AZITHROMYCIN Inactive HYDROCORTISONE 1 % CREA apply 3 to 4 times per day HYDROCORTISONE 1 % CREA 212283 HYDROCORTISONE Inactive CLARITIN 10 MG TAB 1 tablet by mouth daily as needed for allergies CLARITIN 10 MG TAB 099312 LORATADINE Inactive CEPHALEXIN 500 MG CAPS 1 tablet by mouth four times daily CEPHALEXIN 500 MG CAPS 916932 CEPHALEXIN Inactive ZITHROMAX 250 MG TAB 2 po today, then 1 po q days 2-5 ZITHROMAX 250 MG TAB 3960376 AZITHROMYCIN Inactive AMOXICILLIN 500 MG TABS 2 PO bid x 7 d AMOXICILLIN 500 MG TABS 612028 AMOXICILLIN Inactive GENTAMICIN SULFATE 0.3 % SOLN 3 gtt OU tid x 7 d GENTAMICIN SULFATE 0.3 % SOLN 371060 GENTAMICIN SULFATE Inactive ZITHROMAX 250 MG TAB 2 po today, then 1 po q days 2-5 ZITHROMAX 250 MG TAB 5394442 AZITHROMYCIN Inactive Vital Signs Date Name Value [...] negative Encounters Code Encounter Date Provider Facility CPT-10512 Level 3 Est. Patient 07:02:29 CDT Christ PEDERSEN [facility] CPT-36407 Level 4 Est. Patient 07:58:02 CDT Christ PEDERSEN [facility] CPT-11668 Level 3 New Patient 16:50:18 CDT Charla Hammond MD [facility] CPT-22745 Level 3 Est. Patient 07:06:47 CDT Christ PEDERSEN [facility] CPT-85940 Level 3 Est. Patient 13:03:14 CDT Christ Fishman [facility] CPT-43993 Level 3 Est. Patient 09:44:05 CDT Sanket Angel [facility] CPT-08085 Level 3 New Patient 14:13:26 CDT Christ Fishman [facility] CPT-52582 Level 3 New Patient 08:42:00 CDT Christ PEDERSEN [facility] CPT-71076 Level 3 Est. Patient 06:15:09 INGOT CASTER Christ Fishman [facility] CPT-88216 Level 3 Est. Patient 14:32:02 CDT Christ PEDERSEN [facility] CPT-38138 Level 3 Est. Patient 13:55:47 CDT Sanket Angel [facility] CPT-07227 Level 3 Est. Patient 07:36:37 INGOT CASTER Christ Fishman [facility] CPT-91198 Level 3 Est. Patient 10:35:07 CDT Christ Fishman [facility] Procedures Code Procedure Name Date Entry Date Standard Description CPT-92548 Venipuncture Draw Fee 08:59:46 CDT CPT-03594 Venipuncture Draw Fee 16:02:00 CDT CPT-32341 Urine Dip (Floor Use Only) 16:50:18 CDT CPT-96814 Abd single AP View 09:49:22 CDT CPT-72975 Venipuncture Draw Fee 14:15:28 CDT CPT-80459 Rapid Strep -(Floor Use Only) 10:04:18 CDT CPT-89225 Venipuncture Draw Fee 10:04:18 CDT CPT-17664 Venipuncture Draw Fee 09:53:28 INGOT CASTER CPT-27677 Rapid Strep -(Floor Use Only) 14:32:02 CDT CPT-61761 Influenza (Floor Use Only) 15:34:29 INGOT CASTER CPT-64234 Rapid Strep -(Floor Use Only) 10:48:21 CDT CPT-52240 Venipuncture Draw Fee 10:48:21 CDT
--- OUTSIDE RECORDS SUMMARY | 2017-06-14 05:31 | XMS REPORT | Clinical Summary ---
Author Author Admin, LUISITO Organization [facility] Address Unknown Phone Unavailable Allergies, Adverse [...] PA Conjunctivitis, unspecified Viral syndrome 079.99 Resolved hCrist Fishman PA Unspecified viral infection in conditions classified elsewhere and of unspecified site Hematuria 599.70 Resolved Christ PEDERSEN Hematuria, unspecified UTI 599.0 Resolved Christ PEDERSEN Urinary tract infection, site not specified Fever of unknown origin 780.60 Resolved Samantha Yokum KENNEL ASSISTANT Fever, unspecified Acute pharyngitis 462 Resolved Samantha Yokum KENNEL ASSISTANT Acute pharyngitis Upper respiratory infection 465.9 Resolved Samantha Yokum KENNEL ASSISTANT Acute upper respiratory infections of unspecified site Allergic reaction 995.3 Resolved Samantha Yokum KENNEL ASSISTANT Allergy, unspecified, not elsewhere classified Dysuria 788.1 Resolved Samantha Yokum KENNEL ASSISTANT Dysuria Family history of renal disease V18.69 Active Christ PEDERSEN Family history of other kidney diseases Renal calculus, hx of V13.01 Active Christ PEDERSEN Personal history of urinary calculi Microscopic hematuria 599.72 Resolved Samantha Yokum KENNEL ASSISTANT Microscopic hematuria Hematuria 599.70 Resolved Samantha Yokum KENNEL ASSISTANT Hematuria, unspecified Muscle spasm 728.85 Resolved Samantha Yokum KENNEL ASSISTANT Spasm of muscle Easy bruising 782.9 Resolved Samantha Yokum KENNEL ASSISTANT Other symptoms involving skin and integumentary tissues Athletic physical, normal V70.3 Active Samantha Yokum KENNEL ASSISTANT Other general medical examination for administrative purposes PHARYNGITIS, ACUTE, SEVERE ICD-462 Inactive Christ PEDERSEN UPPER RESPIRATORY INFECTION, ACUTE ICD-465.9 Inactive Christ PEDERSEN PHARYNGITIS ICD-462 Inactive Christ PEDERSEN CONJUNCTIVITIS ICD-372.30 Inactive Christ PEDERSEN Viral syndrome ICD-079.99 Inactive Christ PEDERSEN Hematuria ICD-599.70 Inactive Christ PEDERSEN 09/15 UTI ICD-599.0 Inactive Christ PEDERSEN Fever of unknown origin ICD-780.60 Inactive Samantha Yokum KENNEL ASSISTANT Acute pharyngitis ICD-462 Inactive Samantha Yokum KENNEL ASSISTANT Upper respiratory infection ICD-465.9 Inactive Samantha Mccarthy KENNEL ASSISTANT Allergic reaction ICD-995.3 Inactive Samantha Fabio KENNEL ASSISTANT Dysuria ICD-788.1 Inactive Samanthajennifer Mccarthy KENNEL ASSISTANT 02/08 Microscopic hematuria ICD-599.72 Inactive Samantha Fabio KENNEL ASSISTANT Hematuria ICD-599.70 Inactive Samanthajennifer Mccarthy KENNEL ASSISTANT Muscle spasm ICD-728.85 Inactive Samantha Mccarthy KENNEL ASSISTANT Easy bruising ICD-782.9 Inactive Samantha Mccarthy KENNEL ASSISTANT Medication List Medication Instructions Start Date Stop Date Generic Name NDC Status Provider Patient Instruction CEPHALEXIN 500 MG CAPS 1 tablet by mouth four times daily CEPHALEXIN 11620225540 No Longer Active Christ Harms PA Active CLARITIN 10 MG TAB 1 tablet by mouth daily as needed for allergies LORATADINE 41884146003 No Longer Active Christ Harms PA Active HYDROCORTISONE 1 % CREA apply 3 to 4 times per day HYDROCORTISONE 51084757324 No Longer Active Christ Harms PA Active AZITHROMYCIN 500 MG TABS 1 tablet PO daily x 6 days AZITHROMYCIN 79407295893 No Longer Active Christ Harms PA Active ZITHROMAX 250 MG TAB 2 po today, then 1 po q days 2-5 AZITHROMYCIN 47640118567 No Longer Active Christ Harms PA Active AMOXICILLIN 500 MG CAP 1 tab by mouth 3 times daily x 10 days AMOXICILLIN 79627777254 No Longer Active Christ Harms PA Active GENTAMICIN SULFATE 0.3 % SOLN 3 gtt OU tid x 7 d GENTAMICIN SULFATE 25113830977 No Longer Active Sanket W Cloven PA Active AMOXICILLIN 500 MG TABS 2 PO bid x 7 d AMOXICILLIN 34994179932 No Longer Active Sanket Angel PA Active CLARITIN 10 MG CAPS 1qd LORATADINE 80689483324 No Longer Active Sanket Angel PA Active ZITHROMAX 250 MG TAB 2 po today, then 1 po q days 2-5 AZITHROMYCIN 32463565164 No Longer Active Christ Harms PA Active AMOXICILLIN 500 MG CAP 1 tab by mouth 3 times daily x 10 days AMOXICILLIN 22623367033 No Longer Active Chrsit Harms PA Active AMOXICILLIN 500 MG CAP 1 tab by mouth 3 times daily x 10 days AMOXICILLIN 500 MG CAP 607401 AMOXICILLIN Inactive CLARITIN 10 MG CAPS 1qd CLARITIN 10 MG CAPS LORATADINE Inactive AMOXICILLIN 500 MG CAP 1 tab by mouth 3 times daily x 10 days AMOXICILLIN 500 MG CAP 604102 AMOXICILLIN Inactive AZITHROMYCIN 500 MG TABS 1 tablet PO daily x 6 days AZITHROMYCIN 500 MG TABS 4337800 AZITHROMYCIN Inactive HYDROCORTISONE 1 % CREA apply 3 to 4 times per day HYDROCORTISONE 1 % CREA 238749 HYDROCORTISONE Inactive CLARITIN 10 MG TAB 1 tablet by mouth daily as needed for allergies CLARITIN 10 MG TAB 567072 LORATADINE Inactive CEPHALEXIN 500 MG CAPS 1 tablet by mouth four times daily CEPHALEXIN 500 MG CAPS 529310 CEPHALEXIN Inactive ZITHROMAX 250 MG TAB 2 po today, then 1 po q days 2-5 ZITHROMAX 250 MG TAB 3042913 AZITHROMYCIN Inactive AMOXICILLIN 500 MG TABS 2 PO bid x 7 d AMOXICILLIN 500 MG TABS 049051 AMOXICILLIN Inactive GENTAMICIN SULFATE 0.3 % SOLN 3 gtt OU tid x 7 d GENTAMICIN SULFATE 0.3 % SOLN 713763 GENTAMICIN SULFATE Inactive ZITHROMAX 250 MG TAB 2 po today, then 1 po q days 2-5 ZITHROMAX 250 MG TAB 6136199 AZITHROMYCIN Inactive Vital Signs Date Name Value [...] negative Encounters Code Encounter Date Provider Facility CPT-32554 Level 3 Est. Patient 15:20:00 CDT Samantha Mccarthy APRN [facility] CPT-74301 Level 3 Est. Patient 07:02:29 CDT Christ PEDERSEN [facility] CPT-02889 Level 4 Est. Patient 07:58:02 CDT Christ Harms [facility] CPT-53284 Level 3 New Patient 16:50:18 CDT Charla Hammond MD [facility] CPT-27890 Level 3 Est. Patient 07:06:47 CDT Christ PEDERSEN [facility] CPT-93633 Level 3 Est. Patient 13:03:14 CDT Christ PEDERSEN [facility] CPT-78355 Level 3 Est. Patient 09:44:05 CDT Sanket Angel [facility] CPT-79100 Level 3 New Patient 14:13:26 CDT Christ PEDERSEN [facility] CPT-17790 Level 3 New Patient 08:42:00 CDT Christ PEDERSEN [facility] CPT-17999 Level 3 Est. 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 Patient 14:32:02 CDT Christ PEDERSEN [facility] CPT-01854 Level 3 Est. Patient 13:55:47 CDT Sanket Angel [facility] CPT-17795 Level 3 Est. Patient 07:36:37 LEACH CELL OPERATOR Christ PEDERSEN [facility] CPT-22836 Level 3 Est. Patient 10:35:07 CDT Christ PEDERSEN [facility] Procedures Code Procedure Name Date Entry Date Standard Description CPT-66505 Venipuncture Draw Fee 08:59:46 CDT CPT-64255 Venipuncture Draw Fee 16:02:00 CDT CPT-87839 Urine Dip (Floor Use Only) 16:50:18 CDT CPT-70808 Abd single AP View 09:49:22 CDT CPT-56790 Venipuncture Draw Fee 14:15:28 CDT CPT-19771 Rapid Strep -(Floor Use Only) 10:04:18 CDT CPT-66887 Venipuncture Draw Fee 10:04:18 CDT CPT-28472 Venipuncture Draw Fee 09:53:28 LEACH CELL OPERATOR CPT-69645 Rapid Strep -(Floor Use Only) 14:32:02 CDT CPT-72410 Influenza (Floor Use Only) 15:34:29 LEACH CELL OPERATOR CPT-66607 Rapid Strep -(Floor Use Only) 10:48:21 CDT CPT-13720 Venipuncture Draw Fee 10:48:21 CDT
--- OUTSIDE RECORDS SUMMARY | 2017-06-14 05:32 | XMS REPORT | Clinical Summary ---
Author Author Admin, LUISITO Organization Formerly named [facility] Address Unknown Phone Unavailable Allergies, Adverse Reactions, Alerts Allergy Name Reaction Description Start Date Severity Status Provider No Known Allergies Anamaria Anderson LPN NKDA Critical Active Anamaria Anderson EGG CASER Conditions or Problems Problem Name Problem Code [...] of unknown origin 780.60 Resolved Samantha Yokum WASTE REMOVALIST Fever, unspecified Acute pharyngitis 462 Resolved Samantha Yokum WASTE REMOVALIST Acute pharyngitis Upper respiratory infection 465.9 Resolved Samantha Yokum WASTE REMOVALIST Acute upper respiratory infections of unspecified site Allergic reaction 995.3 Resolved Samantha Yokum WASTE REMOVALIST Allergy, unspecified, not elsewhere classified Dysuria 788.1 Resolved Samantha Yokum WASTE REMOVALIST Dysuria Family history of renal disease V18.69 Active Chrsit PEDERSEN Family history of other kidney diseases Renal calculus, hx of V13.01 Active Christ PEDERSEN Personal history of urinary calculi Microscopic hematuria 599.72 Resolved Samantha Yokum WASTE REMOVALIST Microscopic hematuria Hematuria 599.70 Resolved Samantha Yokum WASTE REMOVALIST Hematuria, unspecified Muscle spasm 728.85 Resolved Samantha Yokum WASTE REMOVALIST Spasm of muscle Easy bruising 782.9 Resolved Samantha Yokum WASTE REMOVALIST Other symptoms involving skin and integumentary tissues Athletic physical, normal V70.3 Active Samanthajennifer Mccarthy WASTE REMOVALIST Other general medical examination for administrative purposes Back spasm 724.8 Active Christ PEDERSEN Other symptoms referable to back Easy bruising 782.9 Active Christ PEDERSEN Other symptoms involving skin and integumentary tissues Otitis externa, acute, right 380.12 Active Jenae Arce WASTE REMOVALIST Acute swimmers' ear Depression with anxiety 300.4 Active Jennifer Mendez WASTE REMOVALIST Dysthymic disorder PHARYNGITIS, ACUTE, SEVERE ICD-462 Inactive Christ PEDERSEN UPPER RESPIRATORY INFECTION, ACUTE ICD-465.9 Inactive Christ PEDERSEN PHARYNGITIS ICD-462 Inactive Christ PEDERSEN CONJUNCTIVITIS ICD-372.30 Inactive Christ PEDERSEN Viral syndrome ICD-079.99 Inactive Christ PEDERSEN Hematuria ICD-599.70 Inactive Christ Kye PA 09/15 UTI ICD-599.0 Inactive Christ Kye PA Fever of unknown origin ICD-780.60 Inactive Samantha Yokum WASTE REMOVALIST Acute pharyngitis ICD-462 Inactive Samantha Yokum WASTE REMOVALIST Upper respiratory infection ICD-465.9 Inactive Samantha Yokum WASTE REMOVALIST Allergic reaction ICD-995.3 Inactive Samantha Yokum WASTE REMOVALIST Dysuria ICD-788.1 Inactive Samantha Yokum WASTE REMOVALIST 02/08 Microscopic hematuria ICD-599.72 Inactive Samantha Yokum WASTE REMOVALIST Hematuria ICD-599.70 Inactive Samantha Yokum WASTE REMOVALIST Muscle spasm ICD-728.85 Inactive Samantha Yokum WASTE REMOVALIST Easy bruising ICD-782.9 Inactive Samantha Yokum WASTE REMOVALIST Medication List Medication Instructions Start Date Stop Date Generic Name NDC Status Provider Patient Instruction PAROXETINE HCL 10 MG TABS 1 daily for depression/anxiety PAROXETINE HCL 70287479764 Active Jennifer Mendez WASTE REMOVALIST Active CORTISPORIN 3.5-80552-5 SOLN 4gtts in affected ear QID x 7 days [id number] 83474571247 No Longer Active Soo Muse EGG CASER Active CEPHALEXIN 500 MG CAPS 1 tablet by mouth four times daily CEPHALEXIN 21266937325 No Longer Active Christ PEDERSEN Active CLARITIN 10 MG TAB 1 tablet by mouth daily as needed for allergies LORATADINE 63823035951 No Longer Active Christ Harms PA Active HYDROCORTISONE 1 % CREA apply 3 to 4 times per day HYDROCORTISONE 74059069247 No Longer Active Christ Harms PA Active AZITHROMYCIN 500 MG TABS 1 tablet PO daily x 6 days AZITHROMYCIN 09648809490 No Longer Active Christ Harms PA Active ZITHROMAX 250 MG TAB 2 po today, then 1 po q days 2-5 AZITHROMYCIN 15855284977 No Longer Active Christ Harms PA Active AMOXICILLIN 500 MG CAP 1 tab by mouth 3 times daily x 10 days AMOXICILLIN 94489432725 No Longer Active Christ Harms PA Active GENTAMICIN SULFATE 0.3 % SOLN 3 gtt OU tid x 7 d GENTAMICIN SULFATE 35648644337 No Longer Active Sanket PEDERSEN Active AMOXICILLIN 500 MG TABS 2 PO bid x 7 d AMOXICILLIN 08874304889 No Longer Active Sanket PEDERSEN Active CLARITIN 10 MG CAPS 1qd LORATADINE 91219481425 No Longer Active Sanket PEDERSEN Active ZITHROMAX 250 MG TAB 2 po today, then 1 po q days 2-5 AZITHROMYCIN 68361397035 No Longer Active Christ Harms PA Active AMOXICILLIN 500 MG CAP 1 tab by mouth 3 times daily x 10 days AMOXICILLIN 18162964449 No Longer Active Christ Harms PA Active AMOXICILLIN 500 MG CAP 1 tab by mouth 3 times daily x 10 days AMOXICILLIN 500 MG CAP 144179 AMOXICILLIN Inactive CLARITIN 10 MG CAPS 1qd CLARITIN 10 MG CAPS 258723 LORATADINE Inactive AMOXICILLIN 500 MG CAP 1 tab by mouth 3 times daily x 10 days AMOXICILLIN 500 MG CAP 984876 AMOXICILLIN Inactive AZITHROMYCIN 500 MG TABS 1 tablet PO daily x 6 days AZITHROMYCIN 500 MG TABS 9835345 AZITHROMYCIN Inactive HYDROCORTISONE 1 % CREA apply 3 to 4 times per day HYDROCORTISONE 1 % CREA 268969 HYDROCORTISONE Inactive CLARITIN 10 MG TAB 1 tablet by mouth daily as needed for allergies CLARITIN 10 MG TAB 646254 LORATADINE Inactive CEPHALEXIN 500 MG CAPS 1 tablet by mouth four times daily CEPHALEXIN 500 MG CAPS 259629 CEPHALEXIN Inactive CORTISPORIN 3.5-02010-1 SOLN 4gtts in affected ear QID x 7 days CORTISPORIN 3.5-15432-3 SOLN 593891 [id number] Inactive ZITHROMAX 250 MG TAB 2 po today, then 1 po q days 2-5 ZITHROMAX 250 MG TAB 6021060 AZITHROMYCIN Inactive AMOXICILLIN 500 MG TABS 2 PO bid x 7 d AMOXICILLIN 500 MG TABS 457231 AMOXICILLIN Inactive GENTAMICIN SULFATE 0.3 % SOLN 3 gtt OU tid x 7 d GENTAMICIN SULFATE 0.3 % SOLN 259808 GENTAMICIN SULFATE Inactive ZITHROMAX 250 MG TAB 2 po today, then 1 po q days 2-5 ZITHROMAX 250 MG TAB 9415382 AZITHROMYCIN Inactive Vital Signs Date Name Value [...] Measured Encounters Code Encounter Date Provider Facility CPT-74700 Level 3 Est. Patient 15:12:20 CDT Jennifer Mendez [facility] CPT-88797 Level 3 Est. Patient 14:20:20 CDT Jenae Arce [facility] CPT-00851 Level 4 Est. Patient 07:31:22 CDT Christ Fishman [facility] CPT-25299 Level 3 Est. Patient 15:20:00 CDT Samantha Montoyakaiserabilio [facility] CPT-49595 Level 3 Est. Patient 07:02:29 CDT Christ Fishman [facility] CPT-24692 Level 4 Est. Patient 07:58:02 CDT Christ Fishman [facility] CPT-29346 Level 3 New Patient 16:50:18 CDT Charla Hammond MD [facility] CPT-56649 Level 3 Est. Patient 07:06:47 CDT Christ Fishman [facility] CPT-34151 Level 3 Est. Patient 13:03:14 CDT Christ Fishman [facility] CPT-97460 Level 3 Est. Patient 09:44:05 CDT Sanket Angel [facility] CPT-97739 Level 3 New Patient 14:13:26 CDT Christ Fishman [facility] CPT-33516 Level 3 New Patient 08:42:00 CDT Christ PEDERSEN [facility] CPT-04005 Level 3 Est. Patient 06:15:09 ROLLER CLEANER Christ PEDERSEN [facility] CPT-14277 Level 3 Est. Patient 14:32:02 CDT Christ Harms [facility] CPT-22030 Level 3 Est. Patient 13:55:47 CDT Sanket Angel [facility] CPT-78103 Level 3 Est. Patient 07:36:37 ROLLER CLEANER Christ PEDERSEN Formerly named [facility] CPT-19584 Level 3 Est. Patient 10:35:07 CDT Christ Fishman [facility] Procedures Code Procedure Name Date Entry Date Standard Description CPT-71774 Venipuncture Draw Fee 16:34:16 CDT CPT-13397 Venipuncture Draw Fee 08:59:46 CDT CPT-37606 Venipuncture Draw Fee 16:02:00 CDT CPT-88055 Urine Dip (Floor Use Only) 16:50:18 CDT CPT-27497 Abd single AP View 09:49:22 CDT CPT-38632 Venipuncture Draw Fee 14:15:28 CDT CPT-04321 Rapid Strep -(Floor Use Only) 10:04:18 CDT CPT-34925 Venipuncture Draw Fee 10:04:18 CDT CPT-98015 Venipuncture Draw Fee 09:53:28 ROLLER CLEANER CPT-21561 Rapid Strep -(Floor Use Only) 14:32:02 CDT CPT-32459 Influenza (Floor Use Only) 15:34:29 ROLLER CLEANER CPT-46457 Rapid Strep -(Floor Use Only) 10:48:21 CDT CPT-26242 Venipuncture Draw Fee 10:48:21 CDT
--- OUTSIDE RECORDS SUMMARY | 2017-06-14 05:33 | XMS REPORT | Clinical Summary ---
Author Author Admin, LUISITO Organization [facility] Address Unknown Phone Unavailable Allergies, Adverse [...] of unknown origin 780.60 Resolved Samantha Yokum TUTOR COORDINATOR Fever, unspecified Acute pharyngitis 462 Resolved Samantha Yokum TUTOR COORDINATOR Acute pharyngitis Upper respiratory infection 465.9 Resolved Samantha Yokum TUTOR COORDINATOR Acute upper respiratory infections of unspecified site Allergic reaction 995.3 Resolved Samantha Yokum TUTOR COORDINATOR Allergy, unspecified, not elsewhere classified Dysuria 788.1 Resolved Samantha Yokum TUTOR COORDINATOR Dysuria Family history of renal disease V18.69 Active Christ PEDERSEN Family history of other kidney diseases Renal calculus, hx of V13.01 Active Christ PEDERSEN Personal history of urinary calculi Microscopic hematuria 599.72 Resolved Samantha Yokum TUTOR COORDINATOR Microscopic hematuria Hematuria 599.70 Resolved Samantha Yokum TUTOR COORDINATOR Hematuria, unspecified Muscle spasm 728.85 Resolved Samantha Yokum TUTOR COORDINATOR Spasm of muscle Easy bruising 782.9 Resolved Samantha Yokum TUTOR COORDINATOR Other symptoms involving skin and integumentary tissues Athletic physical, normal V70.3 Active Samanthajennifer Mccarthy TUTOR COORDINATOR Other general medical examination for administrative purposes Back spasm 724.8 Active Christ PEDERSEN Other symptoms referable to back Easy bruising 782.9 Active Christ PEDERSEN Other symptoms involving skin and integumentary tissues Otitis externa, acute, right 380.12 Active Jenae Arce TUTOR COORDINATOR Acute swimmers' ear Depression with anxiety 300.4 Active Jennifer Mendez TUTOR COORDINATOR Dysthymic disorder PHARYNGITIS, ACUTE, SEVERE ICD-462 Inactive Christ PEDERSEN UPPER RESPIRATORY INFECTION, ACUTE ICD-465.9 Inactive Christ PEDERSEN PHARYNGITIS ICD-462 Inactive Christ PEDERSEN CONJUNCTIVITIS ICD-372.30 Inactive Christ PEDERSEN Viral syndrome ICD-079.99 Inactive Christ PEDERSEN Hematuria ICD-599.70 Inactive Christ PEDERSEN 09/15 UTI ICD-599.0 Inactive Christ PEDERSEN Fever of unknown origin ICD-780.60 Inactive Samantha Yokum TUTOR COORDINATOR Acute pharyngitis ICD-462 Inactive Samantha Yokum TUTOR COORDINATOR Upper respiratory infection ICD-465.9 Inactive Samantha Yokum TUTOR COORDINATOR Allergic reaction ICD-995.3 Inactive Samantha Yokum TUTOR COORDINATOR Dysuria ICD-788.1 Inactive Samantha Yokum TUTOR COORDINATOR 02/08 Microscopic hematuria ICD-599.72 Inactive Samantha Yokum TUTOR COORDINATOR Hematuria ICD-599.70 Inactive Samantha Yokum TUTOR COORDINATOR Muscle spasm ICD-728.85 Inactive Samantha Yokum TUTOR COORDINATOR Easy bruising ICD-782.9 Inactive Samantha Yokum TUTOR COORDINATOR Medication List Medication Instructions Start Date Stop Date Generic Name NDC Status Provider Patient Instruction PAXIL 20 MG ORAL TABS 1 tab daily PAROXETINE HCL 23317810074 Active Soo Madl ANODE BUILDER Active CORTISPORIN 3.5-95161-6 SOLN 4gtts in affected ear QID x 7 days [id number] 15291582971 No Longer Active Soo Madl ANODE BUILDER Active CEPHALEXIN 500 MG CAPS 1 tablet by mouth four times daily CEPHALEXIN 55685193321 No Longer Active Christ Kye PEDERSEN Active CLARITIN 10 MG TAB 1 tablet by mouth daily as needed for allergies LORATADINE 26569045409 No Longer Active Christ Harms PA Active HYDROCORTISONE 1 % CREA apply 3 to 4 times per day HYDROCORTISONE 05795356922 No Longer Active Christ Harms PA Active AZITHROMYCIN 500 MG TABS 1 tablet PO daily x 6 days AZITHROMYCIN 15213244393 No Longer Active Christ Harms PA Active ZITHROMAX 250 MG TAB 2 po today, then 1 po q days 2-5 AZITHROMYCIN 66657770514 No Longer Active Christ Harms PA Active AMOXICILLIN 500 MG CAP 1 tab by mouth 3 times daily x 10 days AMOXICILLIN 33135315043 No Longer Active Christ Harms PA Active GENTAMICIN SULFATE 0.3 % SOLN 3 gtt OU tid x 7 d GENTAMICIN SULFATE 61044835028 No Longer Active Sanket PEDERSEN Active AMOXICILLIN 500 MG TABS 2 PO bid x 7 d AMOXICILLIN 05832365587 No Longer Active Sanket PEDERSEN Active CLARITIN 10 MG CAPS 1qd LORATADINE 73784944771 No Longer Active Sanket PEDERSEN Active ZITHROMAX 250 MG TAB 2 po today, then 1 po q days 2-5 AZITHROMYCIN 46972866235 No Longer Active Christ Harms PA Active AMOXICILLIN 500 MG CAP 1 tab by mouth 3 times daily x 10 days AMOXICILLIN 65208153205 No Longer Active Christ Harms PA Active AMOXICILLIN 500 MG CAP 1 tab by mouth 3 times daily x 10 days AMOXICILLIN 500 MG CAP 770426 AMOXICILLIN Inactive CLARITIN 10 MG CAPS 1qd CLARITIN 10 MG CAPS 645079 LORATADINE Inactive AMOXICILLIN 500 MG CAP 1 tab by mouth 3 times daily x 10 days AMOXICILLIN 500 MG CAP 465090 AMOXICILLIN Inactive AZITHROMYCIN 500 MG TABS 1 tablet PO daily x 6 days AZITHROMYCIN 500 MG TABS 1968024 AZITHROMYCIN Inactive HYDROCORTISONE 1 % CREA apply 3 to 4 times per day HYDROCORTISONE 1 % CREA 721610 HYDROCORTISONE Inactive CLARITIN 10 MG TAB 1 tablet by mouth daily as needed for allergies CLARITIN 10 MG TAB 161778 LORATADINE Inactive CEPHALEXIN 500 MG CAPS 1 tablet by mouth four times daily CEPHALEXIN 500 MG CAPS 489977 CEPHALEXIN Inactive CORTISPORIN 3.5-15809-4 SOLN 4gtts in affected ear QID x 7 days CORTISPORIN 3.5-39585-7 SOLN 786685 [id number] Inactive ZITHROMAX 250 MG TAB 2 po today, then 1 po q days 2-5 ZITHROMAX 250 MG TAB 3478347 AZITHROMYCIN Inactive AMOXICILLIN 500 MG TABS 2 PO bid x 7 d AMOXICILLIN 500 MG TABS 665225 AMOXICILLIN Inactive GENTAMICIN SULFATE 0.3 % SOLN 3 gtt OU tid x 7 d GENTAMICIN SULFATE 0.3 % SOLN 944404 GENTAMICIN SULFATE Inactive ZITHROMAX 250 MG TAB 2 po today, then 1 po q days 2-5 ZITHROMAX 250 MG TAB 0061825 AZITHROMYCIN Inactive Vital Signs Date Name Value [...] Measured Encounters Code Encounter Date Provider Facility CPT-86044 Level 3 Est. Patient 15:12:20 CDT Jennifer Mendez [facility] CPT-84591 Level 3 Est. Patient 14:20:20 CDT Jenae Arce [facility] CPT-41838 Level 4 Est. Patient 07:31:22 CDT Christ Fishman [facility] CPT-15892 Level 3 Est. Patient 15:20:00 CDT Samantha Mccarthy [facility] CPT-87518 Level 3 Est. Patient 07:02:29 CDT Christ PEDERSEN [facility] CPT-09801 Level 4 Est. Patient 07:58:02 CDT Christ Fishman [facility] CPT-12769 Level 3 New Patient 16:50:18 CDT Charla Hammond MD [facility] CPT-80521 Level 3 Est. Patient 07:06:47 CDT Christ Fishman [facility] CPT-18291 Level 3 Est. Patient 13:03:14 CDT Christ PEDERSEN [facility] CPT-56649 Level 3 Est. Patient 09:44:05 CDT Sanket Angel [facility] CPT-17570 Level 3 New Patient 14:13:26 CDT Christ Fishman [facility] CPT-28153 Level 3 New Patient 08:42:00 CDT Christ PEDERSEN [facility] CPT-36887 Level 3 Est. Patient 06:15:09 VENUE COORDINATOR Christ Fishman [facility] CPT-16655 Level 3 Est. Patient 14:32:02 CDT Christ PEDERSEN [facility] CPT-47892 Level 3 Est. Patient 13:55:47 CDT Sanket Angel [facility] CPT-65034 Level 3 Est. Patient 07:36:37 VENUE COORDINATOR Christ PEDERSEN [facility] CPT-16348 Level 3 Est. Patient 10:35:07 CDT Christ Fishman NUVIA [facility] Procedures Code Procedure Name Date Entry Date Standard Description CPT-58476 Venipuncture Draw Fee 16:34:16 CDT CPT-81768 Venipuncture Draw Fee 08:59:46 CDT CPT-77303 Venipuncture Draw Fee 16:02:00 CDT CPT-20471 Urine Dip (Floor Use Only) 16:50:18 CDT CPT-20202 Abd single AP View 09:49:22 CDT CPT-58792 Venipuncture Draw Fee 14:15:28 CDT CPT-02786 Rapid Strep -(Floor Use Only) 10:04:18 CDT CPT-56383 Venipuncture Draw Fee 10:04:18 CDT CPT-28706 Venipuncture Draw Fee 09:53:28 VENUE COORDINATOR CPT-75308 Rapid Strep -(Floor Use Only) 14:32:02 CDT CPT-56883 Influenza (Floor Use Only) 15:34:29 VENUE COORDINATOR CPT-96422 Rapid Strep -(Floor Use Only) 10:48:21 CDT CPT-41045 Venipuncture Draw Fee 10:48:21 CDT
--- OUTSIDE RECORDS SUMMARY | 2017-06-14 05:33 | XMS REPORT | Clinical Summary ---
Author Author Admin, LUISITO Organization [facility] Address Unknown Phone Unavailable Allergies, Adverse Reactions, Alerts Allergy Name Reaction Description Start Date Severity Status Provider No Known Allergies Anamaria Anderson LPN NKDA Critical Active Anamaria Anderson [employer] VEGETABLE PACKER Conditions or Problems Problem Name Problem Code [...] of unknown origin 780.60 Resolved Samantha Yokum DENTAL HYGIENIST MOBILE COORDINATOR Fever, unspecified Acute pharyngitis 462 Resolved Samantha Yokum DENTAL HYGIENIST MOBILE COORDINATOR Acute pharyngitis Upper respiratory infection 465.9 Resolved Samantha Yokum DENTAL HYGIENIST MOBILE COORDINATOR Acute upper respiratory infections of unspecified site Allergic reaction 995.3 Resolved Samantha Yokum DENTAL HYGIENIST MOBILE COORDINATOR Allergy, unspecified, not elsewhere classified Dysuria 788.1 Resolved Samantha Yokum DENTAL HYGIENIST MOBILE COORDINATOR Dysuria Family history of renal disease V18.69 Active Christ PEDERSEN Family history of other kidney diseases Renal calculus, hx of V13.01 Resolved Jennifer Mendez APRN Personal history of urinary calculi Microscopic hematuria 599.72 Resolved Samantha Yokum DENTAL HYGIENIST MOBILE COORDINATOR Microscopic hematuria Hematuria 599.70 Resolved Samantha Yokum DENTAL HYGIENIST MOBILE COORDINATOR Hematuria, unspecified Muscle spasm 728.85 Resolved Samantha Yokum DENTAL HYGIENIST MOBILE COORDINATOR Spasm of muscle Easy bruising 782.9 Resolved Samantha Yokum DENTAL HYGIENIST MOBILE COORDINATOR Other symptoms involving skin and integumentary tissues Athletic physical, normal V70.3 Active Samantha Yocrystal ARTN Other general medical examination for administrative purposes Back spasm 724.8 Active Christ PEDERSEN Other symptoms referable to back Easy bruising 782.9 Active Christ PEDERSEN Other symptoms involving skin and integumentary tissues Otitis externa, acute, right 380.12 Active Jenae Arce DENTAL HYGIENIST MOBILE COORDINATOR Acute swimmers' ear Depression with anxiety 300.4 Active Jennifer Mendez APRN Dysthymic disorder Urinary hesitancy 788.64 Active Jennifer Mendez APRN Urinary hesitancy Personal history of urinary calculi V13.01 Active Jennifer Mendez APRN Personal history of urinary calculi Flank pain, left 789.09 Active Jennifer Mendez APRN Abdominal pain, other specified site; multiple sites UPPER RESPIRATORY INFECTION, ACUTE ICD-465.9 Inactive Christ PEDERSEN PHARYNGITIS, ACUTE, SEVERE ICD-462 Inactive Christ Harms PA CONJUNCTIVITIS ICD-372.30 Inactive Christ Harms PA Hematuria ICD-599.70 Inactive Christ Harms PA 09/15 UTI ICD-599.0 Inactive Christ Harms PA PHARYNGITIS ICD-462 Inactive Christ Harms PA Viral syndrome ICD-079.99 Inactive Christ Harms PA Upper respiratory infection ICD-465.9 Inactive Samantha Yokum DENTAL HYGIENIST MOBILE COORDINATOR Allergic reaction ICD-995.3 Inactive Samantha Yokum DENTAL HYGIENIST MOBILE COORDINATOR Dysuria ICD-788.1 Inactive Samantha Yokum DENTAL HYGIENIST MOBILE COORDINATOR 02/08 Fever of unknown origin ICD-780.60 Inactive Samantha Yokum DENTAL HYGIENIST MOBILE COORDINATOR Microscopic hematuria ICD-599.72 Inactive Samantha Yokum DENTAL HYGIENIST MOBILE COORDINATOR Hematuria ICD-599.70 Inactive Samantha Yokum DENTAL HYGIENIST MOBILE COORDINATOR Muscle spasm ICD-728.85 Inactive Samantha Yokum DENTAL HYGIENIST MOBILE COORDINATOR Easy bruising ICD-782.9 Inactive Samantha Yokum DENTAL HYGIENIST MOBILE COORDINATOR Acute pharyngitis ICD-462 Inactive Samantha Yokum DENTAL HYGIENIST MOBILE COORDINATOR Renal calculus, hx of ICD-V13.01 Inactive Jennifer Mendez DENTAL HYGIENIST MOBILE COORDINATOR Medication List Medication Instructions Start Date Stop Date Generic Name NDC Status Provider Patient Instruction BACTRIM DS 800-160 MG TABS 1 twice a day SULFAMETHOXAZOLE- TRIMETHOPRIM 36620742892 Active Soo Madl [employer] AND VEGETABLE PACKER Active PAXIL 20 MG ORAL TABS 1 tab daily PAROXETINE HCL 79409921190 Active Soo Martell [employer] AND VEGETABLE PACKER Active CORTISPORIN 3.5-27079-7 SOLN 4gtts in affected ear QID x 7 days [id number] 73373155925 No Longer Active Soo Madl [employer] PACKER Active CEPHALEXIN 500 MG CAPS 1 tablet by mouth four times daily CEPHALEXIN 47309084429 No Longer Active Christ Harms PA Active CLARITIN 10 MG TAB 1 tablet by mouth daily as needed for allergies LORATADINE 92114068386 No Longer Active Christ Harms PA Active HYDROCORTISONE 1 % CREA apply 3 to 4 times per day HYDROCORTISONE 66594164463 No Longer Active Christ Harms PA Active AZITHROMYCIN 500 MG TABS 1 tablet PO daily x 6 days AZITHROMYCIN 25000431046 No Longer Active Christ Harms PA Active ZITHROMAX 250 MG TAB 2 po today, then 1 po q days 2-5 AZITHROMYCIN 99972939301 No Longer Active Christ Harms PA Active AMOXICILLIN 500 MG CAP 1 tab by mouth 3 times daily x 10 days AMOXICILLIN 44608699819 No Longer Active Christ Harms PA Active GENTAMICIN SULFATE 0.3 % SOLN 3 gtt OU tid x 7 d GENTAMICIN SULFATE 15077838418 No Longer Active Sanket PEDERSEN Active AMOXICILLIN 500 MG TABS 2 PO bid x 7 d AMOXICILLIN 25842704348 No Longer Active Sanket PEDERSEN Active CLARITIN 10 MG CAPS 1qd LORATADINE 08846280644 No Longer Active Sanket Angel PA Active ZITHROMAX 250 MG TAB 2 po today, then 1 po q days 2-5 AZITHROMYCIN 49305420958 No Longer Active Christ Harms PA Active AMOXICILLIN 500 MG CAP 1 tab by mouth 3 times daily x 10 days AMOXICILLIN 42968159745 No Longer Active Christ Harms PA Active AMOXICILLIN 500 MG CAP 1 tab by mouth 3 times daily x 10 days AMOXICILLIN 500 MG CAP 710505 AMOXICILLIN Inactive CLARITIN 10 MG CAPS 1qd CLARITIN 10 MG CAPS 713345 LORATADINE Inactive AMOXICILLIN 500 MG CAP 1 tab by mouth 3 times daily x 10 days AMOXICILLIN 500 MG CAP 759647 AMOXICILLIN Inactive AZITHROMYCIN 500 MG TABS 1 tablet PO daily x 6 days AZITHROMYCIN 500 MG TABS 1494320 AZITHROMYCIN Inactive HYDROCORTISONE 1 % CREA apply 3 to 4 times per day HYDROCORTISONE 1 % CREA 371366 HYDROCORTISONE Inactive CLARITIN 10 MG TAB 1 tablet by mouth daily as needed for allergies CLARITIN 10 MG TAB 876058 LORATADINE Inactive CEPHALEXIN 500 MG CAPS 1 tablet by mouth four times daily CEPHALEXIN 500 MG CAPS 412169 CEPHALEXIN Inactive CORTISPORIN 3.5-08992-0 SOLN 4gtts in affected ear QID x 7 days CORTISPORIN 3.5-39771-2 SOLN 920610 [id number] Inactive ZITHROMAX 250 MG TAB 2 po today, then 1 po q days 2-5 ZITHROMAX 250 MG TAB 8515344 AZITHROMYCIN Inactive AMOXICILLIN 500 MG TABS 2 PO bid x 7 d AMOXICILLIN 500 MG TABS 362145 AMOXICILLIN Inactive GENTAMICIN SULFATE 0.3 % SOLN 3 gtt OU tid x 7 d GENTAMICIN SULFATE 0.3 % SOLN 201885 GENTAMICIN SULFATE Inactive ZITHROMAX 250 MG TAB 2 po today, then 1 po q days 2-5 ZITHROMAX 250 MG TAB 6785477 AZITHROMYCIN Inactive Vital Signs Date Name Value [...] Measured Encounters Code Encounter Date Provider Facility CPT-61229 Level 3 Est. Patient 10:58:20 CDT Jennifer Mendez [facility] CPT-64534 Level 3 Est. Patient 15:12:20 CDT Jennifer Mendez [facility] CPT-12332 Level 3 Est. Patient 14:20:20 CDT Jenae Arce [facility] CPT-51922 Level 4 Est. Patient 07:31:22 CDT Christ Fishman [facility] CPT-16946 Level 3 Est. Patient 15:20:00 CDT Samantha Mccarthy [facility] [place] CPT-48474 Level 3 Est. Patient 07:02:29 CDT Christ PEDERSEN [facility] CPT-77971 Level 4 Est. Patient 07:58:02 CDT Christ PEDERSEN [facility] CPT-12013 Level 3 New Patient 16:50:18 CDT Charla Hammond MD [facility] CPT-89878 Level 3 Est. Patient 07:06:47 CDT Christ PEDERSEN [facility] CPT-58380 Level 3 Est. Patient 13:03:14 CDT Christ PEDERSEN [facility] CPT-46275 Level 3 Est. Patient 09:44:05 CDT Sanket Angel [facility] CPT-80883 Level 3 New Patient 14:13:26 CDT Christ PEDERSEN [facility] CPT-86645 Level 3 New Patient 08:42:00 CDT Christ PEDERSEN [facility] CPT-34582 Level 3 Est. Patient 06:15:09 TOMBSTONE CARVER Christ PEDERSEN [facility] CPT-69687 Level 3 Est. Patient 14:32:02 CDT Christ PEDERSEN [facility] CPT-39022 Level 3 Est. Patient 13:55:47 CDT Sanket Angel [facility] CPT-55688 Level 3 Est. Patient 07:36:37 TOMBSTONE CARVER Christ PEDERSEN [facility] CPT-00585 Level 3 Est. Patient 10:35:07 CDT [facility] Procedures Code Procedure Name Date Entry Date Standard Description CPT-36551 Abd compl w upright - XRAY USE ONLY 11:08:53 CDT 01/11 CPT-61236 Venipuncture Draw Fee 16:34:16 CDT CPT-06234 Venipuncture Draw Fee 08:59:46 CDT CPT-07270 Venipuncture Draw Fee 16:02:00 CDT CPT-56752 Urine Dip (Floor Use Only) 16:50:18 CDT CPT-41807 Abd single AP View 09:49:22 CDT CPT-67776 Venipuncture Draw Fee 14:15:28 CDT CPT-68476 Rapid Strep -(Floor Use Only) 10:04:18 CDT CPT-77258 Venipuncture Draw Fee 10:04:18 CDT CPT-97128 Venipuncture Draw Fee 09:53:28 TOMBSTONE CARVER CPT-06915 Rapid Strep -(Floor Use Only) 14:32:02 CDT CPT-79627 Influenza (Floor Use Only) 15:34:29 TOMBSTONE CARVER CPT-85496 Rapid Strep -(Floor Use Only) 10:48:21 CDT CPT-00501 Venipuncture Draw Fee 10:48:21 CDT
--- OUTSIDE RECORDS SUMMARY | 2017-06-14 05:34 | XMS REPORT | Clinical Summary ---
[...] tablet by mouth four times daily CEPHALEXIN 93554766826 Active Christ PEDERSEN Active CLARITIN 10 MG TAB 1 tablet by mouth daily as needed for allergies LORATADINE 47152769856 No Longer Active Christ Kye PEDERSEN Active HYDROCORTISONE 1 % CREA apply 3 to 4 times per day HYDROCORTISONE 79618205414 No Longer Active Christ Kye PEDERSEN Active AZITHROMYCIN 500 MG TABS 1 tablet PO daily x 6 days AZITHROMYCIN 83746414654 No Longer Active Christ Kye PEDERSEN Active ZITHROMAX 250 MG TAB 2 po today, then 1 po q days 2-5 AZITHROMYCIN 60431088525 No Longer Active Christ Kye PA Active AMOXICILLIN 500 MG CAP 1 tab by mouth 3 times daily x 10 days AMOXICILLIN 14873788127 No Longer Active Christ Kye PEDERSEN Active GENTAMICIN SULFATE 0.3 % SOLN 3 gtt OU tid x 7 d GENTAMICIN SULFATE 14965408337 No Longer Active Sanket PEDERSEN Active AMOXICILLIN 500 MG TABS 2 PO bid x 7 d AMOXICILLIN 03264789570 No Longer Active Sanket PEDERSEN Active CLARITIN 10 MG CAPS 1qd LORATADINE 53999847058 No Longer Active Sanket PEDERSEN Active ZITHROMAX 250 MG TAB 2 po today, then 1 po q days 2-5 AZITHROMYCIN 45305415355 No Longer Active Christ Kye PEDERSEN Active AMOXICILLIN 500 MG CAP 1 tab by mouth 3 times daily x 10 days AMOXICILLIN 89901585583 No Longer Active Christ Kye PA Active AMOXICILLIN 500 MG CAP 1 tab by mouth 3 times daily x 10 days AMOXICILLIN 500 MG CAP 587404 AMOXICILLIN Inactive CLARITIN 10 MG CAPS 1qd CLARITIN 10 MG CAPS LORATADINE Inactive AMOXICILLIN 500 MG CAP 1 tab by mouth 3 times daily x 10 days AMOXICILLIN 500 MG CAP 144337 AMOXICILLIN Inactive AZITHROMYCIN 500 MG TABS 1 tablet PO daily x 6 days AZITHROMYCIN 500 MG TABS 0071692 AZITHROMYCIN Inactive HYDROCORTISONE 1 % CREA apply 3 to 4 times per day HYDROCORTISONE 1 % CREA 831475 HYDROCORTISONE Inactive CLARITIN 10 MG TAB 1 tablet by mouth daily as needed for allergies CLARITIN 10 MG TAB 541345 LORATADINE Inactive ZITHROMAX 250 MG TAB 2 po today, then 1 po q days 2-5 ZITHROMAX 250 MG TAB 9505260 AZITHROMYCIN Inactive AMOXICILLIN 500 MG TABS 2 PO bid x 7 d AMOXICILLIN 500 MG TABS 405416 AMOXICILLIN Inactive GENTAMICIN SULFATE 0.3 % SOLN 3 gtt OU tid x 7 d GENTAMICIN SULFATE 0.3 % SOLN 151927 GENTAMICIN SULFATE Inactive ZITHROMAX 250 MG TAB 2 po today, then 1 po q days 2-5 ZITHROMAX 250 MG TAB 4054612 AZITHROMYCIN Inactive Vital Signs Date Name Value [...] Catch Encounters Code Encounter Date Provider Facility CPT-81846 Level 4 Est. Patient 07:58:02 CDT Christ PEDERSEN [facility] CPT-95065 Level 3 New Patient 16:50:18 CDT Charla Hammond MD [facility] CPT-40853 Level 3 Est. Patient 07:06:47 CDT Christ PEDERSEN [facility] CPT-99240 Level 3 Est. Patient 13:03:14 CDT Christ PEDERSEN [facility] CPT-51349 Level 3 Est. Patient 09:44:05 CDT Sanket PEDERSEN [facility] CPT-60347 Level 3 New Patient 14:13:26 CDT Christ PEDERSEN [facility] CPT-79392 Level 3 New Patient 08:42:00 CDT Christ PEDERSEN [facility] CPT-45935 Level 3 Est. Patient 06:15:09 ELECTRONIC SECURITY SPECIALIST [facility] CPT-11193 Level 3 Est. Patient 14:32:02 CDT Christ PEDERSEN [facility] CPT-22007 Level 3 Est. Patient 13:55:47 CDT Sanket PEDERSEN [facility] CPT-97174 Level 3 Est. Patient 07:36:37 ELECTRONIC SECURITY SPECIALIST Christ PEDERSEN [facility] CPT-37498 Level 3 Est. Patient 10:35:07 CDT Christ PEDERSEN [facility] Procedures Code Procedure Name Date Entry Date Standard Description CPT-70544 Venipuncture Draw Fee 16:02:00 CDT CPT-20432 Urine Dip (Floor Use Only) 16:50:18 CDT CPT-23185 Abd single AP View 09:49:22 CDT CPT-84307 Venipuncture Draw Fee 14:15:28 CDT CPT-29081 Rapid Strep -(Floor Use Only) 10:04:18 CDT CPT-76657 Venipuncture Draw Fee 10:04:18 CDT CPT-03899 Venipuncture Draw Fee 09:53:28 ELECTRONIC SECURITY SPECIALIST CPT-44085 Rapid Strep -(Floor Use Only) 14:32:02 CDT CPT-66912 Influenza (Floor Use Only) 15:34:29 ELECTRONIC SECURITY SPECIALIST CPT-88614 Rapid Strep -(Floor Use Only) 10:48:21 CDT CPT-66079 Venipuncture Draw Fee 10:48:21 CDT
--- OUTSIDE RECORDS SUMMARY | 2017-06-14 05:34 | XMS REPORT | Clinical Summary ---
Author Author Admin, LUISITO Organization [facility] Address Unknown Phone Unavailable Allergies, [...] tablet by mouth four times daily CEPHALEXIN 54565441132 No Longer Active Christ Kye PEDERSEN Active CLARITIN 10 MG TAB 1 tablet by mouth daily as needed for allergies LORATADINE 77431514182 No Longer Active Christ Kye PEDERSEN Active HYDROCORTISONE 1 % CREA apply 3 to 4 times per day HYDROCORTISONE 13926198513 No Longer Active Christ Kye PEDERSEN Active AZITHROMYCIN 500 MG TABS 1 tablet PO daily x 6 days AZITHROMYCIN 35951352482 No Longer Active Christ Harms PA Active ZITHROMAX 250 MG TAB 2 po today, then 1 po q days 2-5 AZITHROMYCIN 42793311740 No Longer Active Christ Harms PA Active AMOXICILLIN 500 MG CAP 1 tab by mouth 3 times daily x 10 days AMOXICILLIN 89496369365 No Longer Active Christ Harms PA Active GENTAMICIN SULFATE 0.3 % SOLN 3 gtt OU tid x 7 d GENTAMICIN SULFATE 12032142031 No Longer Active Sanket PEDERSEN Active AMOXICILLIN 500 MG TABS 2 PO bid x 7 d AMOXICILLIN 65261918981 No Longer Active Sanket PEDERSEN Active CLARITIN 10 MG CAPS 1qd LORATADINE 98501921194 No Longer Active Sanket PEDERSEN Active ZITHROMAX 250 MG TAB 2 po today, then 1 po q days 2-5 AZITHROMYCIN 07457714759 No Longer Active Christ Harms PA Active AMOXICILLIN 500 MG CAP 1 tab by mouth 3 times daily x 10 days AMOXICILLIN 60013026251 No Longer Active Christ Harms PA Active AMOXICILLIN 500 MG CAP 1 tab by mouth 3 times daily x 10 days AMOXICILLIN 500 MG CAP 654124 AMOXICILLIN Inactive CLARITIN 10 MG CAPS 1qd CLARITIN 10 MG CAPS LORATADINE Inactive AMOXICILLIN 500 MG CAP 1 tab by mouth 3 times daily x 10 days AMOXICILLIN 500 MG CAP 364681 AMOXICILLIN Inactive AZITHROMYCIN 500 MG TABS 1 tablet PO daily x 6 days AZITHROMYCIN 500 MG TABS 7175390 AZITHROMYCIN Inactive HYDROCORTISONE 1 % CREA apply 3 to 4 times per day HYDROCORTISONE 1 % CREA 752813 HYDROCORTISONE Inactive CLARITIN 10 MG TAB 1 tablet by mouth daily as needed for allergies CLARITIN 10 MG TAB 875511 LORATADINE Inactive CEPHALEXIN 500 MG CAPS 1 tablet by mouth four times daily CEPHALEXIN 500 MG CAPS 934512 CEPHALEXIN Inactive ZITHROMAX 250 MG TAB 2 po today, then 1 po q days 2-5 ZITHROMAX 250 MG TAB 4159953 AZITHROMYCIN Inactive AMOXICILLIN 500 MG TABS 2 PO bid x 7 d AMOXICILLIN 500 MG TABS 549274 AMOXICILLIN Inactive GENTAMICIN SULFATE 0.3 % SOLN 3 gtt OU tid x 7 d GENTAMICIN SULFATE 0.3 % SOLN 466969 GENTAMICIN SULFATE Inactive ZITHROMAX 250 MG TAB 2 po today, then 1 po q days 2-5 ZITHROMAX 250 MG TAB 9055902 AZITHROMYCIN Inactive Vital Signs Date Name Value [...] negative Encounters Code Encounter Date Provider Facility CPT-57906 Level 3 Est. Patient 07:02:29 CDT Christ PEDERSEN [facility] CPT-01221 Level 4 Est. Patient 07:58:02 CDT Christ PEEDRSEN [facility] CPT-14135 Level 3 New Patient 16:50:18 CDT Charla Hammond MD [facility] CPT-61331 Level 3 Est. Patient 07:06:47 CDT Christ PEDERSEN [facility] CPT-57644 Level 3 Est. Patient 13:03:14 CDT Christ PEDERSEN [facility] CPT-26204 Level 3 Est. Patient 09:44:05 CDT Sanket Angel [facility] CPT-81851 Level 3 New Patient 14:13:26 CDT Christ Fishman [facility] CPT-74313 Level 3 New Patient 08:42:00 CDT Christ Fishman [facility] CPT-01868 Level 3 Est. Patient 06:15:09 WELDER APPRENTICE Christ PEDERSEN [facility] CPT-82826 Level 3 Est. Patient 14:32:02 CDT Christ Fishman [facility] CPT-27178 Level 3 Est. Patient 13:55:47 CDT Sanket Angel [facility] CPT-65236 Level 3 Est. Patient 07:36:37 WELDER APPRENTICE Christ Fishman [facility] CPT-23695 Level 3 Est. Patient 10:35:07 CDT Christ Fishman [facility] Procedures Code Procedure Name Date Entry Date Standard Description CPT-66993 Venipuncture Draw Fee 08:59:46 CDT CPT-69280 Venipuncture Draw Fee 16:02:00 CDT CPT-27607 Urine Dip (Floor Use Only) 16:50:18 CDT CPT-03183 Abd single AP View 09:49:22 CDT CPT-36975 Venipuncture Draw Fee 14:15:28 CDT CPT-55272 Rapid Strep -(Floor Use Only) 10:04:18 CDT CPT-54073 Venipuncture Draw Fee 10:04:18 CDT CPT-32442 Venipuncture Draw Fee 09:53:28 WELDER APPRENTICE CPT-93375 Rapid Strep -(Floor Use Only) 14:32:02 CDT CPT-94309 Influenza (Floor Use Only) 15:34:29 WELDER APPRENTICE CPT-39774 Rapid Strep -(Floor Use Only) 10:48:21 CDT CPT-76716 Venipuncture Draw Fee 10:48:21 CDT
--- OUTSIDE RECORDS SUMMARY | 2017-06-14 05:35 | XMS REPORT | Clinical Summary ---
Author Author Admin, MAGNOE Organization [facility] Address Unknown Phone Unavailable Allergies, Adverse [...] tablet by mouth four times daily CEPHALEXIN 68100865769 No Longer Active Christ Kye PEDERSEN Active CLARITIN 10 MG TAB 1 tablet by mouth daily as needed for allergies LORATADINE 24094378003 No Longer Active Christ Kye PEDERSEN Active HYDROCORTISONE 1 % CREA apply 3 to 4 times per day HYDROCORTISONE 55090304744 No Longer Active Christ Kye PEDERSEN Active AZITHROMYCIN 500 MG TABS 1 tablet PO daily x 6 days AZITHROMYCIN 33855620559 No Longer Active Christ Harms PA Active ZITHROMAX 250 MG TAB 2 po today, then 1 po q days 2-5 AZITHROMYCIN 42249973742 No Longer Active Christ Harms PA Active AMOXICILLIN 500 MG CAP 1 tab by mouth 3 times daily x 10 days AMOXICILLIN 04801685081 No Longer Active Christ Harms PA Active GENTAMICIN SULFATE 0.3 % SOLN 3 gtt OU tid x 7 d GENTAMICIN SULFATE 59780098615 No Longer Active Sanket PEDERSEN Active AMOXICILLIN 500 MG TABS 2 PO bid x 7 d AMOXICILLIN 67014807736 No Longer Active Sanket PEDERSEN Active CLARITIN 10 MG CAPS 1qd LORATADINE 07563046718 No Longer Active Sanket PEDERSEN Active ZITHROMAX 250 MG TAB 2 po today, then 1 po q days 2-5 AZITHROMYCIN 92363631320 No Longer Active Christ Harms PA Active AMOXICILLIN 500 MG CAP 1 tab by mouth 3 times daily x 10 days AMOXICILLIN 07172198546 No Longer Active Christ Harms PA Active AMOXICILLIN 500 MG CAP 1 tab by mouth 3 times daily x 10 days AMOXICILLIN 500 MG CAP 288340 AMOXICILLIN Inactive CLARITIN 10 MG CAPS 1qd CLARITIN 10 MG CAPS LORATADINE Inactive AMOXICILLIN 500 MG CAP 1 tab by mouth 3 times daily x 10 days AMOXICILLIN 500 MG CAP 501526 AMOXICILLIN Inactive AZITHROMYCIN 500 MG TABS 1 tablet PO daily x 6 days AZITHROMYCIN 500 MG TABS 6236784 AZITHROMYCIN Inactive HYDROCORTISONE 1 % CREA apply 3 to 4 times per day HYDROCORTISONE 1 % CREA 818755 HYDROCORTISONE Inactive CLARITIN 10 MG TAB 1 tablet by mouth daily as needed for allergies CLARITIN 10 MG TAB 380688 LORATADINE Inactive CEPHALEXIN 500 MG CAPS 1 tablet by mouth four times daily CEPHALEXIN 500 MG CAPS 122659 CEPHALEXIN Inactive ZITHROMAX 250 MG TAB 2 po today, then 1 po q days 2-5 ZITHROMAX 250 MG TAB 5940284 AZITHROMYCIN Inactive AMOXICILLIN 500 MG TABS 2 PO bid x 7 d AMOXICILLIN 500 MG TABS 410394 AMOXICILLIN Inactive GENTAMICIN SULFATE 0.3 % SOLN 3 gtt OU tid x 7 d GENTAMICIN SULFATE 0.3 % SOLN 418528 GENTAMICIN SULFATE Inactive ZITHROMAX 250 MG TAB 2 po today, then 1 po q days 2-5 ZITHROMAX 250 MG TAB 5310490 AZITHROMYCIN Inactive Vital Signs Date Name Value [...] negative Encounters Code Encounter Date Provider Facility CPT-61347 Level 3 Est. Patient 07:02:29 CDT Christ PEDERSEN [facility] CPT-40553 Level 4 Est. Patient 07:58:02 CDT Christ PEDERSEN [facility] CPT-84505 Level 3 New Patient 16:50:18 CDT Charla Hammond MD [facility] CPT-01273 Level 3 Est. Patient 07:06:47 CDT Christ PEDERSEN [facility] CPT-14762 Level 3 Est. Patient 13:03:[address] [facility] [place] CPT-60947 Level 3 Est. Patient 09:44:[address] [facility] CPT-87902 Level 3 New Patient 14:13:[address] [facility] CPT-87210 Level 3 New Patient 08:42:00 CDT Christ PEDERSEN [facility] CPT-15190 Level 3 Est. Patient 06:15:09 CLOTHER IN Christ Fishman [facility] CPT-17368 Level 3 Est. Patient 14:32:02 CDT Christ PEDERSEN [facility] CPT-58518 Level 3 Est. Patient 13:55:[address] [facility] CPT-22177 Level 3 Est. Patient 07:36:37 CLOTHER IN Christ Fish[address] [facility] CPT-84251 Level 3 Est. Patient 10:35:[address] [facility] Procedures Code Procedure Name Date Entry Date Standard Description CPT-89668 Venipuncture Draw Fee 08:59:46 CDT CPT-84362 Venipuncture Draw Fee 16:02:00 CDT CPT-59028 Urine Dip (Floor Use Only) 16:50:18 CDT CPT-25859 Abd single AP View 09:49:22 CDT CPT-70901 Venipuncture Draw Fee 14:15:28 CDT CPT-16103 Rapid Strep -(Floor Use Only) 10:04:18 CDT CPT-84741 Venipuncture Draw Fee 10:04:18 CDT CPT-86975 Venipuncture Draw Fee 09:53:28 CLOTHER IN CPT-01059 Rapid Strep -(Floor Use Only) 14:32:02 CDT CPT-00071 Influenza (Floor Use Only) 15:34:29 CLOTHER IN CPT-52482 Rapid Strep -(Floor Use Only) 10:48:21 CDT CPT-50955 Venipuncture Draw Fee 10:48:21 CDT
--- OUTSIDE RECORDS SUMMARY | 2017-06-14 05:36 | XMS REPORT | Continuity of Care Document ---
Author Author [facility] Organization [facility] Address Unknown Phone Unavailable Allergies Medications Problems Procedures Results Encounters ACCT No. Visit Date/Time Discharge Status Pt. Type Provider Facility Loc./Unit Complaint [id number] 02/03/2017 11:06:03 ACT Unknown
--- OUTSIDE RECORDS SUMMARY | 2017-06-14 05:36 | XMS REPORT | Clinical Summary ---
Author Author Admin, LUISITO Organization [facility] Address Unknown Phone Unavailable Allergies, Adverse [...] Unspecified viral infection Hematuria 599.70 Resolved Christ Fihsman PA Hematuria, unspecified UTI 599.0 Resolved Christ PEDERSEN Urinary tract infection, site not specified Fever of unknown origin 780.60 Resolved Samantha Yokum VARNISH THINNER Fever, unspecified Acute pharyngitis 462 Resolved Samantha Yokum VARNISH THINNER Acute pharyngitis Upper respiratory infection 465.9 Resolved Samantha Yokum VARNISH THINNER Acute upper respiratory infections of unspecified site Allergic reaction 995.3 Resolved Samantha Yokum VARNISH THINNER Allergy, unspecified, not elsewhere classified Dysuria 788.1 Resolved Samantha Yokum VARNISH THINNER Dysuria Family history of renal disease V18.69 Active Christ PEDERSEN Family history of other kidney diseases Renal calculus, hx of V13.01 Resolved Jennifer Mendez APRN Personal history of urinary calculi Microscopic hematuria 599.72 Resolved Samantha Yokum [employer]ARNISH THINNER Microscopic hematuria Hematuria 599.70 Resolved Samantha Yokum [employer]ARNISH THINNER Hematuria, unspecified Muscle spasm 728.85 Resolved Samantha Yokum VARNISH THINNER Spasm of muscle Easy bruising 782.9 Resolved Samantha Yokum [employer]ARNISH THINNER Other symptoms involving skin and integumentary tissues Athletic physical, normal V70.3 Active Samantha Fabio ARTN Other general medical examination for administrative purposes Back spasm 724.8 Active Christ PEDERSEN Other symptoms referable to back Easy bruising 782.9 Active Christ PEDERSEN Other symptoms involving skin and integumentary tissues Otitis externa, acute, right 380.12 Active Jenae Arce [employer] THINNER Acute swimmers' ear Depression with anxiety 300.4 [...] of unknown origin ICD-780.60 Inactive Samantha Yokum VARNISH THINNER Acute pharyngitis ICD-462 Inactive Samantha Yokum [employer]ARNISH THINNER Upper respiratory infection ICD-465.9 Inactive Samantha Yokum VARNISH THINNER Allergic reaction ICD-995.3 Inactive Samantha Yokum VARNISH THINNER Dysuria ICD-788.1 Inactive Samantha Yokum VARNISH THINNER 02/08 Renal calculus, hx of ICD-V13.01 Inactive Jennifer Mendez [employer]ARNISH THINNER Microscopic hematuria ICD-599.72 Inactive Samantha Yokum [employer]ARNISH THINNER Hematuria ICD-599.70 Inactive Samantha Yokum [employer]ARNISH THINNER Muscle spasm ICD-728.85 Inactive Samantha Yokum VARNISH THINNER Easy bruising ICD-782.9 Inactive Samantha Yokum VARNISH THINNER Medication List Medication Instructions Start Date Stop Date Generic Name NDC Status Provider Patient Instruction BACTRIM DS 800-160 MG TABS 1 twice a day SULFAMETHOXAZOLE- TRIMETHOPRIM 14864456583 Active Soo Madl CELLOPHANE BAG MACHINE OPERATOR Active PAXIL 20 MG ORAL TABS 1 tab daily PAROXETINE HCL 22381625233 Active Soo Martell CELLOPHANE BAG MACHINE OPERATOR Active CORTISPORIN 3.5-71571-2 SOLN 4gtts in affected ear QID x 7 days [id number] 95855600228 No Longer Active Soo Madl CELLOPHANE BAG MACHINE OPERATOR Active CEPHALEXIN 500 MG CAPS 1 tablet by mouth four times daily CEPHALEXIN 37019413177 No Longer Active Christ Harms PA Active CLARITIN 10 MG TAB 1 tablet by mouth daily as needed for allergies LORATADINE 16110402268 No Longer Active Christ Harms PA Active HYDROCORTISONE 1 % CREA apply 3 to 4 times per day HYDROCORTISONE 07187543689 No Longer Active Christ Harms PA Active AZITHROMYCIN 500 MG TABS 1 tablet PO daily x 6 days AZITHROMYCIN 62982477824 No Longer Active Christ Harms PA Active ZITHROMAX 250 MG TAB 2 po today, then 1 po q days 2-5 AZITHROMYCIN 58648500666 No Longer Active Christ Harms PA Active AMOXICILLIN 500 MG CAP 1 tab by mouth 3 times daily x 10 days AMOXICILLIN 51000008100 No Longer Active Christ Harms PA Active GENTAMICIN SULFATE 0.3 % SOLN 3 gtt OU tid x 7 d GENTAMICIN SULFATE 02254042711 No Longer Active Sanket PEDERSEN Active AMOXICILLIN 500 MG TABS 2 PO bid x 7 d AMOXICILLIN 47559085196 No Longer Active Sanket PEDERSEN Active CLARITIN 10 MG CAPS 1qd LORATADINE 29999555848 No Longer Active Sanket Angel PA Active ZITHROMAX 250 MG TAB 2 po today, then 1 po q days 2-5 AZITHROMYCIN 77813276685 No Longer Active Christ Harms PA Active AMOXICILLIN 500 MG CAP 1 tab by mouth 3 times daily x 10 days AMOXICILLIN 22210335925 No Longer Active Christ Harms PA Active AMOXICILLIN 500 MG CAP 1 tab by mouth 3 times daily x 10 days AMOXICILLIN 500 MG CAP 631856 AMOXICILLIN Inactive CLARITIN 10 MG CAPS 1qd CLARITIN 10 MG CAPS 779149 LORATADINE Inactive AMOXICILLIN 500 MG CAP 1 tab by mouth 3 times daily x 10 days AMOXICILLIN 500 MG CAP 122878 AMOXICILLIN Inactive AZITHROMYCIN 500 MG TABS 1 tablet PO daily x 6 days AZITHROMYCIN 500 MG TABS 7060495 AZITHROMYCIN Inactive HYDROCORTISONE 1 % CREA apply 3 to 4 times per day HYDROCORTISONE 1 % CREA 591864 HYDROCORTISONE Inactive CLARITIN 10 MG TAB 1 tablet by mouth daily as needed for allergies CLARITIN 10 MG TAB 034449 LORATADINE Inactive CEPHALEXIN 500 MG CAPS 1 tablet by mouth four times daily CEPHALEXIN 500 MG CAPS 432543 CEPHALEXIN Inactive CORTISPORIN 3.5-12820-8 SOLN 4gtts in affected ear QID x 7 days CORTISPORIN 3.5-20266-1 SOLN 607550 [id number] Inactive ZITHROMAX 250 MG TAB 2 po today, then 1 po q days 2-5 ZITHROMAX 250 MG TAB 7585303 AZITHROMYCIN Inactive AMOXICILLIN 500 MG TABS 2 PO bid x 7 d AMOXICILLIN 500 MG TABS 492307 AMOXICILLIN Inactive GENTAMICIN SULFATE 0.3 % SOLN 3 gtt OU tid x 7 d GENTAMICIN SULFATE 0.3 % SOLN 116077 GENTAMICIN SULFATE Inactive ZITHROMAX 250 MG TAB 2 po today, then 1 po q days 2-5 ZITHROMAX 250 MG TAB 4685290 AZITHROMYCIN Inactive Vital Signs Date Name Value [...] Measured Encounters Code Encounter Date Provider Facility CPT-10746 Level 3 Est. Patient 10:58:20 CDT Jennifer Mendez [facility] CPT-95778 Level 3 Est. Patient 15:12:20 CDT Jennifer Mendez [facility] CPT-38346 Level 3 Est. Patient 14:20:20 CDT Jenae Arce [facility] CPT-36020 Level 4 Est. Patient 07:31:22 CDT Christ Fishman [facility] CPT-36683 Level 3 Est. Patient 15:20:00 CDT Samantha Mccarthy [facility] CPT-64633 Level 3 Est. Patient 07:02:29 CDT Christ PEDERSEN [facility] CPT-82534 Level 4 Est. Patient 07:58:02 CDT Christ PEDERSEN [facility] CPT-02124 Level 3 New Patient 16:50:18 CDT Charla Hammond MD [facility] CPT-71122 Level 3 Est. Patient 07:06:47 CDT Christ PEDERSEN [facility] CPT-85751 Level 3 Est. Patient 13:03:14 CDT Christ PEDERSEN [facility] CPT-87082 Level 3 Est. Patient 09:44:05 CDT Sanket Angel [facility] CPT-30702 Level 3 New Patient 14:13:26 CDT Christ PEDERSEN [facility] CPT-97504 Level 3 New Patient 08:42:00 CDT Christ PEDERSEN [facility] CPT-76623 Level 3 Est. Patient 06:15:09 OBGYN NURSE Christ PEDERSEN [facility] CPT-25660 Level 3 Est. Patient 14:32:02 CDT Christ PEDERSEN [facility] CPT-40583 Level 3 Est. Patient 13:55:47 CDT Sanket Angel [facility] CPT-17659 Level 3 Est. Patient 07:36:37 OBGYN NURSE Christ PEDERSEN [facility] CPT-85314 Level 3 Est. Patient 10:35:07 CDT [facility] Procedures Code Procedure Name Date Entry Date Standard Description CPT-53996 Abd compl w upright - XRAY USE ONLY 11:08:53 CDT 01/11 CPT-02732 Venipuncture Draw Fee 16:34:16 CDT CPT-66361 Venipuncture Draw Fee 08:59:46 CDT CPT-08530 Venipuncture Draw Fee 16:02:00 CDT CPT-33754 Urine Dip (Floor Use Only) 16:50:18 CDT CPT-18748 Abd single AP View 09:49:22 CDT CPT-97171 Venipuncture Draw Fee 14:15:28 CDT CPT-65362 Rapid Strep -(Floor Use Only) 10:04:18 CDT CPT-07456 Venipuncture Draw Fee 10:04:18 CDT CPT-42360 Venipuncture Draw Fee 09:53:28 OBGYN NURSE CPT-91778 Rapid Strep -(Floor Use Only) 14:32:02 CDT CPT-29612 Influenza (Floor Use Only) 15:34:29 OBGYN NURSE CPT-41119 Rapid Strep -(Floor Use Only) 10:48:21 CDT CPT-85246 Venipuncture Draw Fee 10:48:21 CDT
--- OUTSIDE RECORDS SUMMARY | 2017-06-14 05:36 | XMS REPORT | Clinical Summary ---
Author Author Admin, E Organization [facility] Address Unknown Phone Unavailable Allergies, Adverse Reactions, Alerts Allergy Name Reaction Description Start Date Severity Status Provider No Known Allergies Anamaria Anderson LPN NKDA Critical Active Anamaria Andref PERSONNEL AND PAYROLL TECHNICIAN Conditions or Problems Problem Name Problem [...] of unknown origin 780.60 Resolved Samantha Yokum CHILD DAY CARE PROVIDER Fever, unspecified Acute pharyngitis 462 Resolved Samantha Yokum CHILD DAY CARE PROVIDER Acute pharyngitis Upper respiratory infection 465.9 Resolved Samantha Yokum CHILD DAY CARE PROVIDER Acute upper respiratory infections of unspecified site Allergic reaction 995.3 Resolved Samantha Yokum CHILD DAY CARE PROVIDER Allergy, unspecified, not elsewhere classified Dysuria 788.1 Resolved Samantha Yokum CHILD DAY CARE PROVIDER Dysuria Family history of renal disease V18.69 Active Christ PEDERSEN Family history of other kidney diseases Renal calculus, hx of V13.01 Active Christ PEDERSEN Personal history of urinary calculi Microscopic hematuria 599.72 Resolved Samantha Yokum CHILD DAY CARE PROVIDER Microscopic hematuria Hematuria 599.70 Resolved Samantha Yokum CHILD DAY CARE PROVIDER Hematuria, unspecified Muscle spasm 728.85 Resolved Samantha Yokum CHILD DAY CARE PROVIDER Spasm of muscle Easy bruising 782.9 Resolved Samantha Yokum CHILD DAY CARE PROVIDER Other symptoms involving skin and integumentary tissues Athletic physical, normal V70.3 Active Samantha Teresaum CHILD DAY CARE PROVIDER Other general medical examination for administrative purposes Back spasm 724.8 Active Christ PEDERSEN Other symptoms referable to back Easy bruising 782.9 Active Christ PEDERSEN Other symptoms involving skin and integumentary tissues Otitis externa, acute, right 380.12 Active Jenae Arce CHILD DAY CARE PROVIDER Acute swimmers' ear Depression with anxiety 300.4 Active Jennifer Mendez CHILD DAY CARE PROVIDER Dysthymic disorder PHARYNGITIS, ACUTE, SEVERE ICD-462 Inactive Christ PEDERSEN UPPER RESPIRATORY INFECTION, ACUTE ICD-465.9 Inactive Christ PEDERSEN PHARYNGITIS ICD-462 Inactive Christ PEDERSEN CONJUNCTIVITIS ICD-372.30 Inactive Christ PEDERSEN Viral syndrome ICD-079.99 Inactive Christ PEDERSEN Hematuria ICD-599.70 Inactive Christ Kye PA 09/15 UTI ICD-599.0 Inactive Christ Kye PEDERSEN Fever of unknown origin ICD-780.60 Inactive Samantha Yokum CHILD DAY CARE PROVIDER Acute pharyngitis ICD-462 Inactive Samantha Yokum CHILD DAY CARE PROVIDER Upper respiratory infection ICD-465.9 Inactive Samantha Yokum CHILD DAY CARE PROVIDER Allergic reaction ICD-995.3 Inactive Samantha Yokum CHILD DAY CARE PROVIDER Dysuria ICD-788.1 Inactive Samantha Yokum CHILD DAY CARE PROVIDER 02/08 Microscopic hematuria ICD-599.72 Inactive Samantha Yokum CHILD DAY CARE PROVIDER Hematuria ICD-599.70 Inactive Samantha Yokum CHILD DAY CARE PROVIDER Muscle spasm ICD-728.85 Inactive Samantha Yokum CHILD DAY CARE PROVIDER Easy bruising ICD-782.9 Inactive Samantha Yokum CHILD DAY CARE PROVIDER Medication List Medication Instructions Start Date Stop Date Generic Name NDC Status Provider Patient Instruction PAROXETINE HCL 10 MG TABS 1 daily for depression/anxiety PAROXETINE HCL 91827143783 Active Jennifer Mendez CHILD DAY CARE PROVIDER Active CORTISPORIN 3.5-20945-6 SOLN 4gtts in affected ear QID x 7 days [id number] 89165321743 No Longer Active Soo Muse PERSONNEL AND PAYROLL TECHNICIAN Active CEPHALEXIN 500 MG CAPS 1 tablet by mouth four times daily CEPHALEXIN 91388404936 No Longer Active Christ PEDERSEN Active CLARITIN 10 MG TAB 1 tablet by mouth daily as needed for allergies LORATADINE 94147123956 No Longer Active Christ Harms PA Active HYDROCORTISONE 1 % CREA apply 3 to 4 times per day HYDROCORTISONE 71030210018 No Longer Active Christ Harms PA Active AZITHROMYCIN 500 MG TABS 1 tablet PO daily x 6 days AZITHROMYCIN 91266419237 No Longer Active Christ Harms PA Active ZITHROMAX 250 MG TAB 2 po today, then 1 po q days 2-5 AZITHROMYCIN 60596987178 No Longer Active Christ Harms PA Active AMOXICILLIN 500 MG CAP 1 tab by mouth 3 times daily x 10 days AMOXICILLIN 35794826153 No Longer Active Christ Harms PA Active GENTAMICIN SULFATE 0.3 % SOLN 3 gtt OU tid x 7 d GENTAMICIN SULFATE 43302656087 No Longer Active Sanket PEDERSEN Active AMOXICILLIN 500 MG TABS 2 PO bid x 7 d AMOXICILLIN 61092312268 No Longer Active Sanket PEDERSEN Active CLARITIN 10 MG CAPS 1qd LORATADINE 47152631353 No Longer Active Sanket PEDERSEN Active ZITHROMAX 250 MG TAB 2 po today, then 1 po q days 2-5 AZITHROMYCIN 96833269550 No Longer Active Christ Harms PA Active AMOXICILLIN 500 MG CAP 1 tab by mouth 3 times daily x 10 days AMOXICILLIN 08858929217 No Longer Active Christ Harms PA Active AMOXICILLIN 500 MG CAP 1 tab by mouth 3 times daily x 10 days AMOXICILLIN 500 MG CAP 782417 AMOXICILLIN Inactive AMOXICILLIN 500 MG CAP 1 tab by mouth 3 times daily x 10 days AMOXICILLIN 500 MG CAP 301811 AMOXICILLIN Inactive CLARITIN 10 MG TAB 1 tablet by mouth daily as needed for allergies CLARITIN 10 MG TAB 034460 LORATADINE Inactive CORTISPORIN 3.5-00295-2 SOLN 4gtts in affected ear QID x 7 days CORTISPORIN 3.5-76035-2 SOLN 045604 [id number] Inactive GENTAMICIN SULFATE 0.3 % SOLN 3 gtt OU tid x 7 d GENTAMICIN SULFATE 0.3 % SOLN 670509 GENTAMICIN SULFATE Inactive HYDROCORTISONE 1 % CREA apply 3 to 4 times per day HYDROCORTISONE 1 % CREA 785221 HYDROCORTISONE Inactive CEPHALEXIN 500 MG CAPS 1 tablet by mouth four times daily CEPHALEXIN 500 MG CAPS 197666 CEPHALEXIN Inactive AMOXICILLIN 500 MG TABS 2 PO bid x 7 d AMOXICILLIN 500 MG TABS 522538 AMOXICILLIN Inactive AZITHROMYCIN 500 MG TABS 1 tablet PO daily x 6 days AZITHROMYCIN 500 MG TABS 0887978 AZITHROMYCIN Inactive ZITHROMAX 250 MG TAB 2 po today, then 1 po q days 2-5 ZITHROMAX 250 MG TAB 9066774 AZITHROMYCIN Inactive ZITHROMAX 250 MG TAB 2 po today, then 1 po q days 2-5 ZITHROMAX 250 MG TAB 9544713 AZITHROMYCIN Inactive CLARITIN 10 MG CAPS 1qd CLARITIN 10 MG CAPS 326758 LORATADINE Inactive Vital Signs Date Name Value Unit [...] Measured Encounters Code Encounter Date Provider Facility CPT-00109 Level 3 Est. Patient 15:12:20 CDT Jennifer Mendez [facility] CPT-20726 Level 3 Est. Patient 14:20:20 CDT Jenae Arce [facility] CPT-68132 Level 4 Est. Patient 07:31:22 CDT Christ Fishman [facility] CPT-77893 Level 3 Est. Patient 15:20:00 CDT Samantha Mccarthy [facility] CPT-98123 Level 3 Est. Patient 07:02:29 CDT Christ Fishman [facility] CPT-36679 Level 4 Est. Patient 07:58:02 CDT Christ Fishman [facility] CPT-29594 Level 3 New Patient 16:50:18 CDT Charla Hammond MD [facility] CPT-92368 Level 3 Est. Patient 07:06:47 CDT Christ Fishman [facility] CPT-40941 Level 3 Est. Patient 13:03:14 CDT Christ Fishman [facility] CPT-11908 Level 3 Est. Patient 09:44:05 CDT Sanket Angel [facility] CPT-23404 Level 3 New Patient 14:13:26 CDT Christ Fishman [facility] CPT-92304 Level 3 New Patient 08:42:00 CDT Christ PEDERSEN [facility] CPT-87543 Level 3 Est. Patient 06:15:09 CYBER INSTRUCTOR Christ PEDERSEN [facility] CPT-83316 Level 3 Est. Patient 14:32:02 CDT Christ Fishman [facility] CPT-79792 Level 3 Est. Patient 13:55:47 CDT Sanket Angel [facility] CPT-48618 Level 3 Est. Patient 07:36:37 CYBER INSTRUCTOR Christ PEDERSEN [facility] CPT-35401 Level 3 Est. Patient 10:35:07 CDT Christ Fishman [facility] Procedures Code Procedure Name Date Entry Date Standard Description CPT-06457 Venipuncture Draw Fee 16:34:16 CDT CPT-03177 Venipuncture Draw Fee 08:59:46 CDT CPT-31197 Venipuncture Draw Fee 16:02:00 CDT CPT-48029 Urine Dip (Floor Use Only) 16:50:18 CDT CPT-31774 Abd single AP View 09:49:22 CDT CPT-46308 Venipuncture Draw Fee 14:15:28 CDT CPT-53073 Rapid Strep -(Floor Use Only) 10:04:18 CDT CPT-45592 Venipuncture Draw Fee 10:04:18 CDT CPT-25502 Venipuncture Draw Fee 09:53:28 CYBER INSTRUCTOR CPT-36417 Rapid Strep -(Floor Use Only) 14:32:02 CDT CPT-41141 Influenza (Floor Use Only) 15:34:29 CYBER INSTRUCTOR CPT-86318 Rapid Strep -(Floor Use Only) 10:48:21 CDT CPT-54195 Venipuncture Draw Fee 10:48:21 CDT
[2017-06-14 05:41] LABS: BILIRUBIN,URINE NEGATIVE (NEGATIVE); KETONES,URINE NEGATIVE (NEGATIVE); LEUKOCYTE ESTERASE ,URINE 1+ (NEGATIVE); NITRITE,URINE NEGATIVE (NEGATIVE); PH,URINE 5 (5-9); PROTEIN,URINE 3+ (NEGATIVE); UROBILINOGEN,URINE NORMAL (NORMAL)
[2017-06-14] MEDS ORDERED: KETOROLAC 30 MG/ML VIAL IM ONE (05:45)
[2017-06-14 05:46] LABS: WBC,URINE 0-2 /HPF
--- NOTE | 2017-06-14 06:47 | Diagnostic Imaging Report ---
INDICATION: Left flank pain x3 days. TECHNIQUE: 2 supine view of the abdomen 6:47 AM CORRELATION STUDY: None FINDINGS: Moderate amount of overlying bowel gas and stool is present. No evidence for obstructive uropathy. 2 mm stones located just inferior to the of the left L2 transverse process which could reflect a left ureteral stone. IMPRESSION: 1. Small calcifications below the left L2 transverse process could be reflective of underlying ureteral stone. Moderate severity fecal retention. Dictated by: Dictated on workstation # [id number]
--- NOTE | 2017-06-14 06:51 | Diagnostic Imaging Report ---
PROCEDURE: CT urinary tract, rule out kidney stone. TECHNIQUE: Multiple contiguous axial images were obtained through the abdomen and pelvis without the use of intravenous contrast. INDICATION: Left flank pain. There is a stone in the proximal left ureter at the L2 inferior endplate level measuring 3.5 mm and resulting in mild upstream hydronephrosis. There are additional 2-3 mm nonobstructing stones within left lower pole calyces. The right kidney without calculus or obstruction. Liver, gallbladder, spleen, adrenals and pancreas nonacute. There is upper limits spleen size. There is no appendicitis or diverticulitis. There is trace free fluid in the pelvic cul-de-sac is a common finding in a female patient of this age. IMPRESSION: 3.5 mm proximal left ureteral stone results in only mild proximal hydronephrosis. Additional nonobstructing intrarenal stones in the left kidney noted. Dictated by: Dictated on workstation # [id number]
[2017-06-14] MEDS ORDERED: NS IV 1000 ML 1,000 ML IV ONE (07:05)
[2017-06-14 07:17] LABS: BASOPHILS % (AUTO) 0 % (0-10); EOSINOPHILS # (AUTO) 0.2 10^3/uL (0.0-0.3); EOSINOPHILS % (AUTO) 2 % (0-10); LYMPHOCYTES # (AUTO) 1.4 X 10^3 (1.0-4.0); LYMPHOCYTES % (AUTO) 17 % (12-44); MEAN CORPUSCULAR HEMOGLOBIN 29 PG (25-34); MEAN CORPUSCULAR HGB CONC 33 G/DL (32-36); MEAN CORPUSCULAR VOLUME 85 FL (80-99); MEAN PLATELET VOLUME 10.8 FL (7.4-10.4); MONOCYTES # (AUTO) 0.6 X 10^3 (0.0-1.0); MONOCYTES % (AUTO) 8 % (0-12); NEUTROPHILS # (AUTO) 6.1 X 10^3 (1.8-7.8); NEUTROPHILS % (AUTO) 73 % (42-75); PLATELET COUNT 263 10^3/uL (130-400); RED BLOOD COUNT 4.42 10^6/uL (4.35-5.85); RED CELL DISTRIBUTION WIDTH 12.6 % (10.0-14.5); WHITE BLOOD COUNT 8.3 10^3/uL (4.3-11.0)
[2017-06-14 07:41] LABS: ALANINE AMINOTRANSFERASE 9 U/L (0-55); ANION GAP 9 MMOL/L (5-14); ASPARTATE AMINO TRANSFERASE 13 U/L (5-34); BILIRUBIN,TOTAL 0.3 MG/DL (0.1-1.0); BLOOD UREA NITROGEN 12 MG/DL (7-18); BUN/CREATININE RATIO 16; CALCIUM 9.4 MG/DL (8.5-10.1); CARBON DIOXIDE 23 MMOL/L (21-32); CHLORIDE 107 MMOL/L (98-107); CREATININE SERUM 0.77 MG/DL (0.60-1.30); GFR ESTIMATED > 60; GLUCOSE 103 MG/DL (70-105); POTASSIUM 3.9 MMOL/L (3.6-5.0); SODIUM 139 MMOL/L (135-145); TOTAL PROTEIN 7.9 GM/DL (6.4-8.2)
[2017-06-14] MEDS ORDERED: CEPH500T PO (07:55)
[2017-06-14] MEDS ORDERED: HYDR-3812 PO (07:55)
== END 2017-06-14 08:10 | disposition home or self-care (01) ==
LOC: ER 05:16
DX: N20.1 Calculus of ureter (principal); F31.9 Bipolar disorder, unspecified
CPT/HCPCS: 36415; 74000; 74176; 80053; 81000; 84703; 85025; 87088

== ENCOUNTER → 2017-06-17 | Outpatient (CLI) | payer OTHER ==
[~2017-06-17] MED LIST: ALPR0.5T7; CEPH500T PO; HYDR-3812 PO; LAMO25TA PO
--- NOTE | 2017-06-17 15:23 | Diagnostic Imaging Report ---
INDICATION: Followup calculus. COMPARISON: 06/14/2017 FINDINGS: Two supine radiographic views of the abdomen were obtained. Punctate extraosseous calcification is again identified inferior to the left transverse process of L2. Again, this may correspond to patient's known proximal ureter calculus. Patient's known nonobstructive left renal calculi are essentially inconspicuous on this exam. No unexpected radiopaque foreign bodies are seen. Small bowel loops are nondistended. There is no large collection of free intraperitoneal air. Bony structures show no gross acute abnormalities. IMPRESSION: 1. Redemonstration of left-sided extraosseous calcification. Again, this may correspond to patient's known ureter calculus. Overall, it is stable in position. 2. Additional known left renal calculi are essentially inconspicuous. Dictated by: Dictated on workstation # [id number]
== END ==
LOC: RAD 12:55
PROVIDERS: ATTEND Urology
DX: N20.1 Calculus of ureter (principal)
CPT/HCPCS: 74000

== ENCOUNTER 2017-06-18 05:32 | Outpatient (CLI) | payer OTHER ==
[~2017-06-18] VITALS: Ht 175.3 cm; Wt 95.3 kg
== END 2017-06-18 09:32 ==
LOC: PREOP 05:32
PROVIDERS: ATTEND Urology
DX: Z01.818 Encounter for other preprocedural examination (principal); N20.1 Calculus of ureter

== ENCOUNTER 2017-06-22 08:00 | Day surgery (SDC) | payer OTHER ==
[~2017-06-22] VITALS: Ht 175.3 cm; Wt 95.3 kg
[2017-06-22] MEDS ORDERED: LACTATED RINGERS 1,000 ML IV PRN (08:05)
[2017-06-22] MEDS ORDERED: cefTRIAXone INJECTION 1,000 MG in NS (IVPB) 50 ML IV ONE (08:15)
--- OUTSIDE RECORDS SUMMARY | 2017-06-22 08:22 | XMS REPORT | Continuity of Care Document ---
Author Author [facility] Organization [facility] Address Unknown Phone Unavailable Allergies There is no data. Medications There is no data. Problems There is no data. Procedures There is no data. Results There is no data. Encounters ACCT No. Visit Date/Time Discharge Status Pt. Type Provider Facility Loc./Unit Complaint [id number] 02/03/2017 11:06:03 ACT Unknown
--- NOTE | 2017-06-22 08:34 | Diagnostic Imaging Report ---
INDICATION: Preprocedure evaluation for known left ureteral stone. COMPARISON: 06/17/2017. FINDINGS: The 2 mm calculus in the proximal left ureter is in stable position. There is no definitive additional new renal calculi. Nonobstructive bowel gas pattern. Physiologic volume of stool is present. Normal regional skeleton. IMPRESSION: 1. Stable position of proximal left ureteral 2 mm stone. Dictated by: Dictated on workstation # [id number]
[2017-06-22 08:40] VITALS: BP 120/80
--- NOTE | 2017-06-22 08:40 | Progress Note-Pre Operative ---
Pre-Operative Progress Note H&P Reviewed The H&P was reviewed, patient examined and no changes noted. Date Seen by Provider: Jun 22, 2017 Time Seen by Provider: 08:39 Date H&P Reviewed: Jun 22, 2017 Time H&P Reviewed: 08:39 Pre-Operative Diagnosis: LT URETERAL STONE GEORGIE KEENE MD Jun 22, 2017 8:40 am
[2017-06-22] MEDS ORDERED: MIDAZOLAM 2 MG/2 ML (VERSED) VIAL ONE (09:15)
--- NOTE | 2017-06-22 09:38 | Progress Note-Post Operative ---
Post-Operative Progess Note Surgeon (s)/Patient Transport Orderly (s) Surgeon GEORGIE KEENE MD Patient Transport Orderly: N/A Pre-Operative Diagnosis LT PROXIMAL URETERAL STONE Post-Operative Diagnosis SAME Procedure & Operative Findings Date of Procedure 06/22/17 Procedure Performed/Findings LT ESWL Anesthesia Type GENERAL Estimated Blood Loss Estimated blood loss (mL): N/A Specimens/Packing Specimens Removed N/A Packing: N/A GEORGIE KEENE MD Jun 22, 2017 9:38 am
--- NOTE | 2017-06-22 09:40 | Discharge Inst-Urology ---
Discharge Inst-Urology Discharge Medications New, Converted, or Re-newed RX: RX on Chart Patient Instructions/Follow Up Plan Please make appointment to been seen in office in 4 weeks. KUB prior to it KUB on way home Post ESWL instructions Increase oral fluids for 48 hours and then as needed. Diet and Activity as tolerated. If questions or concerns contact your physician Or seek help at emergency department. GEORGIE KEENE MD Jun 22, 2017 9:39 am
[2017-06-22] MEDS ORDERED: SEVOFLURANE (ULTANE) 15 ML INHAL SOLN ONE (09:44)
[2017-06-22] MEDS ORDERED: LIDOCAINE PF 2% 5 ML (XYLOCAINE) VIAL ONE (09:44)
[2017-06-22] MEDS ORDERED: proPOfol 200 MG/20 ML (DIPRIVAN) VIAL IV ONE (09:44)
[2017-06-22] MEDS ORDERED: FUROSEMIDE 40 MG/4 ML INJ (LASIX) ONE (09:44)
[2017-06-22] MEDS ORDERED: KETOROLAC 30 MG/ML VIAL ONE (09:44)
[2017-06-22] MEDS ORDERED: fentaNYL INJECTION 100 MCG/2 ML AMP ONE (09:45)
[2017-06-22] MEDS ORDERED: ONDANSETRON 4 MG/2 ML (SDV) Z0FRAN ONE (09:52)
[2017-06-22] MEDS ORDERED: DEXAMETHASONE 10 MG/ML (DECADRON) 1 ML VIAL ONE (09:52)
[2017-06-22] MEDS ORDERED: fentaNYL INJECTION 100 MCG/2 ML AMP IVP PRN (10:15)
[2017-06-22] MEDS ORDERED: ONDANSETRON 4 MG/2 ML (SDV) Z0FRAN IVP PRN (10:15)
[2017-06-22 10:40] VITALS: BP 116/80
[2017-06-22] MEDS ORDERED: TAMS0.4C98 PO (10:55)
[2017-06-22] MEDS ORDERED: HYDR-3874 PO (10:55)
[2017-06-22] MEDS ORDERED: NITR-68 PO (10:55)
[2017-06-22 11:10] VITALS: BP 111/72
[2017-06-22 11:40] VITALS: BP 112/78
[2017-06-22 11:50] VITALS: BP 112/78
--- NOTE | 2017-06-22 12:34 | Diagnostic Imaging Report ---
INDICATION: Status post ESWL. COMPARISON: Earlier same day. FINDINGS: Single supine radiographic view of the abdomen was obtained and demonstrates small extraosseous calcification projecting just inferior to the left L2 transverse process suspicious for ureteral calculus. No other unexpected extraosseous calcifications or radiopaque foreign bodies are seen. Small bowel loops are nondistended. Bony structures show no gross acute abnormalities. IMPRESSION: 1. Stable left-sided calculus; likely ureteral in location. Dictated by: Dictated on workstation # [id number]
--- NOTE | 2017-06-22 19:31 | OPERATIVE REPORT ---
DATE OF SERVICE: 06/22/2017 PREOPERATIVE DIAGNOSIS: Left proximal ureteral stone. POSTOPERATIVE DIAGNOSIS: Left proximal ureteral stone. OPERATION PERFORMED: Left ESWL. SURGEON: Jamie Keene MD. ANESTHESIA: General. COMPLICATIONS: None. PROCEDURE: Under satisfactory general anesthesia, the patient in supine position on the ESWL table, the left proximal ureteral stone was localized. Shocks were delivered at kV of 6. A total of 2500 shocks completely fragmented the stone, which could not be visualized anymore. The patient received 40 mg of Lasix and 30 mg of Toradol IV at the end of the procedure. She tolerated the procedure and anesthesia well and was sent to recovery room in stable condition. Job ID: [id number] DocumentID: [id number] Dictated Date: 06/22/2017 09:54:44 Schedule Announcer Date: 06/22/2017 18:00:52 Dictated By: JAMIE KEENE MD
== END 2017-06-22 11:50 | disposition home or self-care (01) ==
LOC: SDC 08:00
PROVIDERS: ATTEND Urology
DX: N20.1 Calculus of ureter (principal); F31.9 Bipolar disorder, unspecified; Z79.899 Other long term (current) drug therapy
CPT/HCPCS: 74000; 84703; 87081

== ENCOUNTER → 2017-07-20 | Outpatient (CLI) | payer OTHER ==
[~2017-07-20] MED LIST changes: +ACHD5005 PO; -HYDR-3812 PO; +HYDR-3874 PO; +NITR-68 PO; +TAMS0.4C98 PO
--- NOTE | 2017-07-20 13:30 | Diagnostic Imaging Report ---
EXAMINATION: Abdomen INDICATION: Followup ESWL 2 supine views were obtained. The prior exam of 06/22/2017 suggested a small 2-3 MM calculus along the inferior margin of the left transverse process of L2. That finding is difficult to identify on this exam. There is no other pathological calcification noted. The bowel gas pattern remains nonspecific. There is no sign of an acute abnormality. There is no mass or organomegaly identified. IMPRESSION: 1. The calculus along the inferior margin of the left transverse process of L2 seen previously is not identified on this study. If clinical concern exists that there is still a calculus present, then CT of the abdomen and pelvis would be recommended for further study. 2. The overall appearance of the abdomen and pelvis is stable otherwise. Dictated by: Dictated on workstation # [id number]
== END ==
LOC: RAD 12:47
PROVIDERS: ATTEND Urology
DX: Z09 Encounter for follow-up examination after completed treatment for conditions other than malignant neoplasm (principal); Z87.442 Personal history of urinary calculi; Z98.890 Other specified postprocedural states
CPT/HCPCS: 74018

== ENCOUNTER 2017-08-02 11:52 | Outpatient (RCR) | payer OTHER ==
[~2017-08-02 11:52] MED LIST changes: +HYDR-3870 PO; -HYDR-3874 PO
== END 2017-10-29 | disposition home or self-care (01) ==
LOC: LAB 11:52
PROVIDERS: ATTEND Urology
DX: N20.0 Calculus of kidney (principal)
CPT/HCPCS: 36415; 82140; 82340; 82507; 82570; 83735; 83945; 83986; 84105; 84133; 84300; 84392; 84560